=== PATIENT | male | born 1965 | race African-American/Black ===

== ENCOUNTER 2017-10-21 14:17 | Inpatient (IN) | payer OTHER ==
[2017-10-21 19:55] VITALS: BMI 22.9
--- NOTE | 2017-10-21 22:36 | HP ---
Admission ROS S - [facility] Chief Complaint: I WANT TO GO TO REHAB Allergies/Adverse Reactions: Allergies Allergy/AdvReac Type Severity Reaction Status Date / Time Pork/Porcine Containing Allergy Unknown Verified 10/21/17 20:47 Products [Pork/Porcine Product Derivatives] History of Present Illness: 52 YEARS OLD MALE WITH LONG HISTORY OF HEROIN NICOTINE DEPENDENCE HAS HYPERTENSION, HYPERLIPIDEMIA WEIGH TLOSS POSITIVE PPD AND DEPRESSION IS ADMITTED TO REHAB Exam Limitations: No Limitations - Ebola screening Have you traveled outside of the country in the last 21 days: No Have you had contact with anyone from an Ebola affected area: No Have you been sick,other than usual withdrawal symptoms: No Do you have a fever: No - Review of Systems Constitutional: Loss of Appetite, Unintentional Wgt. Loss, Unexplained wgt Loss EENT: reports: No Symptoms Reported Respiratory: reports: SOB with Exertion Cardiac: reports: No Symptoms Reported GI: reports: No Symptoms Reported : reports: No Symptoms Reported Musculoskeletal: reports: No Symptoms Reported Integumentary: reports: No Symptoms Reported Neuro: reports: No Symptoms reported Endocrine: reports: No Symptoms Reported Hematology: reports: Blood Clots Psychiatric: reports: Judgement Intact, Orientated x3, Anxious, Depressed Other Systems: Reviewed and Negative Patient History - Patient Medical History Hx Anemia: No Hx Asthma: No Hx Chronic Obstructive Pulmonary Disease (COPD): No Hx Cancer: No Hx Cardiac Disorders: No Hx Congestive Heart Failure: Yes (PULMONARY EDEMA = LASIX) Hx Hypertension: Yes Hx Hypercholesterolemia: Yes Hx Pacemaker: No HX Cerebrovascular Accident: No Hx Seizures: No Hx Dementia: No Hx Diabetes: No Hx Gastrointestinal Disorders: No Hx Liver Disease: No Hx Genitourinary Disorders: No Hx Sexually Transmitted Disorders: No Hx Renal Disease (ESRD): No ("DOCTOR SAID MY KIDNEY NOT SO GOOD") Hx Thyroid Disease: No Hx Human Immunodeficiency Virus (HIV): No Hx Hepatitis C: No Hx Depression: Yes Hx Suicide Attempt: No Hx Bipolar Disorder: No Hx Schizophrenia: No Other Medical History: LAB PENDING - Patient Surgical History Past Surgical History: Yes Hx Neurologic Surgery: No Hx Cataract Extraction: No Hx Cardiac Surgery: No Hx Lung Surgery: No Hx Breast Surgery: No Hx Breast Biopsy: No Hx Abdominal Surgery: Yes (Rt inguinal hernia repair) Hx Appendectomy: Yes Hx Cholecystectomy: No Hx Genitourinary Surgery: No Hx Orthopedic Surgery: No Anesthesia Reaction: No - PPD History Previous Implant?: Yes Documented Results: Positive w/o proof Implanted On Prior [facility] Admission?: No PPD to be Administered?: No - Smoking Cessation Smoking history: Current every day smoker Have you smoked in the past 12 months: Yes Aproximately how many cigarettes per day: 5 Cigars Per Day: 0 Hx Chewing Tobacco Use: No Initiated information on smoking cessation: Yes 'Breaking Loose' booklet given: 10/21/17 - Substance & Tx. History Hx Alcohol Use: No Hx Substance Use: Yes Substance Use Type: Cocaine, Heroin Hx Substance Use Treatment: Yes (10/21/17 [facility] [place]) - Substances Abused Heroin Route: Inhalation Frequency: Daily Amount used: 10 bags Age of first use: 28 Date of Last Use: 10/14/17 Cocaine Route: Smoking Frequency: Daily Amount used: $50-75 Age of first use: 23 Date of Last Use: 10/14/17 Family Disease History - Family Disease History Family Disease History: Heart Disease: Father (), Sister (), [place] : Mother, Other: Father, Brother (), Sister Admission Physical Exam [facility] - Vital Signs Vital Signs: Vital Signs - 24 hr 10/21/17 19:53 Temperature 97.6 F Pulse Rate 90 Respiratory 18 Rate Blood Pressure 139/90 - Physical General Appearance: Yes: No Apparent Distress, Appropriately Dressed, Thin HEENTM: Yes: Hearing grossly Normal, Normal ENT Inspection, Normocephalic, Normal Voice Respiratory: Yes: Chest Non-Tender, No Respiratory Distress, No Accessory Muscle Use, Rhonchi Neck: Yes: Supple, Trachea in good position Breast: Yes: Breasts Symetrical Cardiology: Yes: Regular Rhythm, S1, S2, Tachycardia Abdominal: Yes: Non Tender, Soft, Increased Bowel Sounds Genitourinary: Yes: Within Normal Limits Back: Yes: Normal Inspection Musculoskeletal: Yes: full range of Motion, Gait Steady Extremities: Yes: Normal Inspection, Normal Range of Motion, Non-Tender Neurological: Yes: Fully Oriented, Alert, Motor Strength 5/5, Normal Response Integumentary: Yes: Dry, Warm Lymphatic: Yes: Within Normal Limits - Diagnostic (1) Opioid dependence with withdrawal Current Visit: Yes Status: Acute (2) Cocaine dependence, uncomplicated Current Visit: Yes Status: Chronic (3) Hypertension Current Visit: Yes Status: Acute Qualifiers: Hypertension type: essential hypertension Qualified Code(s): I10 - Essential (primary) hypertension (4) Nicotine dependence Current Visit: Yes Status: Acute Qualifiers: Nicotine product type: cigarettes Substance use status: in withdrawal Qualified Code(s): F17.213 - Nicotine dependence, cigarettes, with withdrawal (5) Hyperlipidemia Current Visit: Yes Status: Chronic Qualifiers: Hyperlipidemia type: pure hypercholesterolemia Qualified Code(s): E78.00 - Pure hypercholesterolemia, unspecified; E78.0 - Pure hypercholesterolemia (6) Weight loss Current Visit: Yes Status: Acute (7) Positive PPD, treated Current Visit: Yes Status: Resolved (8) Dry skin dermatitis Current Visit: Yes Status: Chronic Cleared for Admission [facility] - Detox or Rehab S Level of Care: Observation Bed Detox Regimen/Protocol: Not Applicable Claeared for Rehab Admission: Yes [facility] Breath Alcohol Content Breath Alcohol Content: 0 Vital Signs - Vital Signs Vital Signs Refused: No Temperature: 97.6 F Temperature Source: Oral Pulse Rate: 90 Respiratory Rate: 18 Blood Pressure: 139/90 BP Location: Left Arm Blood Pressure Position: Sitting - Height Height: 5 ft 10 in - Weight Weight: 160 lb Weight Measurement Method: Standing Scale Body Mass Index (BMI): 22.9 - Bowel Function Bowel Movement: Yes Urine Drug Screen - Control Is Test Valid: Yes - Results Drug Screen Negative: No Urine Drug Screen Results: YARIEL-Cocaine, MTD-Methadone Inpatient Rehab Admission - Initial Determination Are CD services needed?: Yes Free of communicable disease: Yes Not in need of hospitalization: Yes - Rehab Admission Criteria Previous failed treatment: Yes Poor recovery environment: Yes Comorbidities: Yes Lacks judgement: No Patient is meeting Inpatient Rehab admission criteria:: Yes
[2017-10-21] MEDS ORDERED: MAGNESIUM CITRATE 300 ML BOTTLE PO PRN (23:02)
[2017-10-21] MEDS ORDERED: ACETAMINOPHEN 325 MG TABLET (FP) PO PRN (23:02)
[2017-10-21] MEDS ORDERED: MAG HYDROX/AL HYDROX/SIMETH 30 ML UNIT-DOSE CUP PO PRN (23:02)
[2017-10-21] MEDS ORDERED: P-EPHED 60MG/TRIPROLIDI 2.5MG TABLET PO PRN (23:02)
[2017-10-21] MEDS ORDERED: MENTHOL/PHENOL 1 EACH UD MM PRN (23:02)
[2017-10-21] MEDS ORDERED: guaiFENesin/D-METHORPHAN HB 10 ML UNIT-DOSE CUPS PO PRN (23:02)
[2017-10-21] MEDS ORDERED: NICOTINE POLACRILEX 2 MG GUM BC PRN (23:02)
[2017-10-21] MEDS ORDERED: MAGNESIUM HYDROX 2400MG/30ML ORAL SUSPENSION 30 ML CUP PO PRN (23:02)
[2017-10-21] MEDS ORDERED: LOPERAMIDE HCL 2 MG CAPSULE PO PRN (23:02)
[2017-10-21] MEDS ORDERED: METHOCARBAMOL 500 MG TABLET PO PRN (23:18)
[2017-10-22 02:19] LABS: URINE APPEARANCE CLEAR; URINE BILIRUBIN NEGATIVE (NEGATIVE); URINE BLOOD NEGATIVE (NEGATIVE); URINE COLOR LTYELLOW; URINE GLUCOSE (UA) NEGATIVE (NEGATIVE); URINE KETONE NEGATIVE (NEGATIVE); URINE LEUK ESTERASE NEGATIVE (NEGATIVE); URINE NITRITE NEGATIVE (NEGATIVE); URINE UROBILINOGEN NEGATIVE mg/dL (0.2-1.0)
[2017-10-22 02:20] LABS: URINE PROTEIN 2+ (NEGATIVE)
[2017-10-22 02:33] LABS: URINE BACTERIA RARE /hpf (NONE SEEN); URINE MUCUS RARE; URINE RBC 1 /hpf (0-3); URINE WBC 12 /hpf (3-5)
[2017-10-22 10:02] LABS: MCH 28.4 pg (25.7-33.7); MCHC 32.7 g/dl (32.0-35.9); MEAN CELL VOLUME 86.9 fl (80-96); PLATELET COUNT 360 K/MM3 (134-434); RDW 16.2 % (11.9-15.9)
[2017-10-22 10:42] LABS: ALK PHOS 94 U/L (45-117); ANION GAP 15 (8-16); BILIRUBIN,TOTAL 0.6 mg/dL (0.2-1.0); CO2 27 mmol/L (21-32); GLUCOSE,RANDOM 138 mg/dL (74-106); SGOT/AST 14 U/L (15-37); SGPT/ALT 20 U/L (12-78); TOT PROT 9.3 g/dl (6.4-8.2)
[2017-10-22] MEDS: ASPIRIN 81 MG CHEWABLE TABLETS PO SCH (10:46)
[2017-10-22] MEDS: amLODIPine BESYLATE 10 MG TABLET (FP) PO SCH (10:47)
[2017-10-22] MEDS: TICAGRELOR 90 MG TABLET PO SCH ×2 (10:47→22:22)
[2017-10-22] MEDS: NICOTINE 14 MG/24 HOURS TOPICAL PATCH TD SCH (10:47)
[2017-10-22] MEDS: RANOLAZINE E.R. 500 MG TABLET (FP) PO SCH ×2 (10:47→22:16)
[2017-10-22] MEDS: PRENATAL VITAMINS W/ FOLIC ACID TABLET (FP) PO SCH (10:47)
[2017-10-22 11:01] LABS: CREATININE 8.8 mg/dL (0.7-1.3)
[2017-10-22] MEDS ORDERED: CARVEDILOL 6.25 MG TABLET (FP) PO SCH (11:30)
[2017-10-22] MEDS ORDERED: CLOPIDOGREL BISULFATE 75 MG TABLET (FP) PO SCH (11:30)
[2017-10-22] MEDS ORDERED: BUPRENORPHINE/NALOXONE 2 MG/0.5 MG FILM PACKET SL ONE (11:31)
--- NOTE | 2017-10-22 11:43 | PN ---
S Progress Note (SOAP) Subjective: LABWORK SHOW ELEVATED BUN AND CREATININE, PATIENT IS AWARE, HAD ISSUES AT [facility] AND APPOINTMENTS MADE FOR FOLLOW UP IN november. DOESNOT WANT TO GO TO HOSPTIAL TODAY, REPROTS PROTRACTED OPIOID WITHDRAWAL SX Objective: 10/22/17 11:40 Vital Signs - 24 hr 10/21/17 10/21/17 10/22/17 19:53 23:27 03:30 Temperature 97.6 F 97.6 F Pulse Rate 90 90 Respiratory 18 18 18 Rate Blood Pressure 139/90 139/90 10/22/17 10/22/17 06:28 11:13 Temperature 98.3 F Pulse Rate 91 H 90 Respiratory 16 18 Rate Blood Pressure 143/95 140/97 HYPERTENSION Laboratory Tests 10/21/17 10/22/17 10/22/17 23:40 08:15 08:15 WBC 9.0 D RBC 4.26 Hgb 12.1 Hct 37.0 MCV 86.9 MCH 28.4 MCHC 32.7 RDW 16.2 H Plt Count 360 D MPV 8.0 D Sodium 131 L Potassium 3.9 Chloride 89 L D Carbon Dioxide 27 Anion Gap 15 BUN 143 H* D Creatinine 8.8 H* D Creat Clearance w eGFR 6.33 Random Glucose 138 H D Calcium 9.0 Total Bilirubin 0.6 D AST 14 L ALT 20 Alkaline Phosphatase 94 D Total Protein 9.3 H D Albumin 3.0 L Urine Color Ltyellow Urine Appearance Clear Urine pH 8.0 Ur Specific [place] 1.012 Urine Protein 2+ H Urine Glucose (UA) Negative Urine Ketones Negative Urine Blood Negative Urine Nitrite Negative Urine Bilirubin Negative Urine Urobilinogen Negative Urine WBC (Auto) 12 Urine RBC (Auto) 1 Ur Epithelial Cells Rare Urine Bacteria Rare Urine Mucus Rare Assessment: 10/22/17 11:41 ANUELJANET IS AWARE OF SERIOUS NATURE OF PROBLEM, AND WILL ATTEND CLINIC APPOINTMENTS SCHEULED IN NOVEMBER AFTER REHAB, PROTRACTED OPIOID WITHDRAWAL SX, HYPERTENSION, REPEAT LABS, CONTROL BP, START SUBOXONE. IF NO IMPROVEMENT WILL SEND TO [facility] [[email or web address]] FOR EVALUATION. pATEINT VERBALIZES AGREEMENT. NEEDS cxr FOR H/O ppd+ TODAQY. 10/22/17 11:42
[2017-10-22 12:05] LABS: URINE LEUK ESTERASE Negative (NEGATIVE)
--- NOTE | 2017-10-22 12:45 | EKG ---
Test Reason : Blood Pressure : / mmHG Vent. Rate : 088 BPM Atrial Rate : 088 BPM P-R Int : 164 ms QRS Dur : 098 ms QT Int : 370 ms P-R-T Axes : 068 066 079 degrees QTc Int : 447 ms NORMAL SINUS RHYTHM BIATRIAL ENLARGEMENT LEFT VENTRICULAR HYPERTROPHY POSSIBLE INFERIOR INFARCT , AGE UNDETERMINED ABNORMAL ECG NO PREVIOUS ECGS AVAILABLE Confirmed by BRIAN DAI MD ([id number]) on 10/22/2017 12:45:08 PM Referred By: Confirmed By:BRIAN DAI MD
[2017-10-22] MEDS: METOPROLOL TARTRATE 50 MG TABLET (FP) PO SCH (14:02)
[2017-10-22] MEDS: VALSARTAN 80 MG TABLET (UD) PO SCH ×2 (14:02→22:17)
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
--- NOTE | 2017-10-22 16:34 | EKG ---
Test Reason : Blood Pressure : / mmHG Vent. Rate : 084 BPM Atrial Rate : 084 BPM P-R Int : 166 ms QRS Dur : 096 ms QT Int : 376 ms P-R-T Axes : 073 075 084 degrees QTc Int : 444 ms NORMAL SINUS RHYTHM BIATRIAL ENLARGEMENT LEFT VENTRICULAR HYPERTROPHY INFERIOR INFARCT (CITED ON OR BEFORE 22-OCT-2017) ABNORMAL ECG WHEN COMPARED WITH ECG OF 22-OCT-2017 00:43, NO SIGNIFICANT CHANGE WAS FOUND Confirmed by BRIAN DAI MD ([id number]) on 10/22/2017 4:34:05 PM Referred By: Confirmed By:BRIAN DAI MD
[2017-10-22] MEDS ORDERED: LORATADINE 10 MG TABLET PO SCH (22:00)
[2017-10-22] MEDS: ATORVASTATIN CA 40 MG TABLET (FP) PO SCH (22:16)
[2017-10-22] MEDS: THIAMINE HCL 100 MG TABLET (FP) PO SCH (22:17)
[2017-10-22] MEDS: DOXAZOSIN MESYLATE 2 MG TABLET (FP) PO SCH (22:18)
[2017-10-22] MEDS: MINERAL OIL/PETROLAT/WATER TOPICAL CREAM 113 GM JAR TP SCH (22:23)
[2017-10-23] MEDS ORDERED: MAGNESIUM HYDROX 2400MG/30ML ORAL SUSPENSION 30 ML CUP PO PRN (02:37)
[2017-10-23 10:17] LABS: BASO % 0.4 % (0-2.0); EOS % 0.2 % (0-4.5); LYMPH # 1.2 (8-40); MCH 28.1 pg (25.7-33.7); MCHC 32.6 g/dl (32.0-35.9); MEAN CELL VOLUME 86.4 fl (80-96); MONO # 1.2 # (3.8-10.2); NEUT # 9.6 # (42.8-82.8); NEUT % 79.5 % (42.8-82.8); PLATELET COUNT 374 K/MM3 (134-434); RDW 15.8 % (11.9-15.9); WHITE BLOOD COUNT 12.1 K/mm3 (4.0-10.0)
[2017-10-23 10:18] LABS: ALBUMIN 2.9 g/dl (3.4-5.0); ALK PHOS 82 U/L (45-117); ANION GAP 12 (8-16); BILIRUBIN,TOTAL 0.5 mg/dL (0.2-1.0); CALCIUM 9.2 mg/dL (8.5-10.1); CO2 28 mmol/L (21-32); GLUCOSE,RANDOM 98 mg/dL (74-106); SGOT/AST 13 U/L (15-37); SGPT/ALT 16 U/L (12-78); TOT PROT 8.5 g/dl (6.4-8.2)
[2017-10-23 10:33] LABS: CREATININE 8.6 mg/dL (0.7-1.3)
[2017-10-23] MEDS: METOPROLOL TARTRATE 50 MG TABLET (FP) PO SCH (10:45)
[2017-10-23] MEDS: ASPIRIN 81 MG CHEWABLE TABLETS PO SCH (10:45)
[2017-10-23] MEDS: RANOLAZINE E.R. 500 MG TABLET (FP) PO SCH ×2 (10:46→22:03)
[2017-10-23] MEDS: amLODIPine BESYLATE 10 MG TABLET (FP) PO SCH (10:47)
[2017-10-23] MEDS: NICOTINE 14 MG/24 HOURS TOPICAL PATCH TD SCH (10:47)
[2017-10-23] MEDS: TICAGRELOR 90 MG TABLET PO SCH ×2 (10:48→22:03)
[2017-10-23] MEDS: VALSARTAN 80 MG TABLET (UD) PO SCH (10:48)
[2017-10-23] MEDS: PRENATAL VITAMINS W/ FOLIC ACID TABLET (FP) PO SCH (10:49)
[2017-10-23] MEDS: BUPRENORPHINE/NALOXONE 2 MG/0.5 MG FILM PACKET SL SCH (10:50)
--- NOTE | 2017-10-23 12:25 | PN ---
Progress Note (short form) - Note Progress Note: repeat lab work with elevated BUN/Cr. pt declined suboxone today, says he doesn't need it. Med rec needs to be updated. pt is on beta-ale and uses cocaine. currently has good urine output, denies fatigue, mental fog, le edema, chest pain, sob, cough, cva tenderness, chest pain. Plan: he does not want to be transferred to [facility] for further evaluation, will f/u as outpatient at previously arranged appointments by [facility] in November. discussed risks of combining beta blockers and cocaine reveiwed worsening kidney function, answered patient's question to his satisfaction. states understanding the risks (, renal failure, [place], stroke, multi-organ failure, AMS) of deferring further evaluation for kidney function now. repeat BMP, Mag, Phos on Saturday 10/27 to monitor electrolytes and renal function discontinued ARB (diovan 160mg po daily) due to ANUEL, monitor BP, goal HR <90. continue norvasc, lopressor, cardura, hold if BP <90/60 continue suboxone order even though patient may decline to use it discussed with Dr. Coe Active Medications Acetaminophen (Tylenol -) 650 mg PO Q4H PRN PRN Reason: PAIN Amlodipine Besylate (Norvasc -) 10 mg PO DAILY [facility] Last Admin: 10/23/17 10:47 Dose: 10 mg Aspirin (Asa -) 81 mg PO DAILY [facility] Last Admin: 10/23/17 10:45 Dose: 81 mg Atorvastatin Calcium (Lipitor -) 40 mg PO HS [facility] Last Admin: 10/22/17 22:16 Dose: 40 mg Buprenorphine/Naloxone (Suboxone 2mg/0.5mg Sl Film -) 2 each SL DAILY [facility] Stop: 10/29/17 09:59 Last Admin: 10/23/17 10:50 Dose: Not Given Docusate Sodium (Colace -) 300 mg PO HS [facility]BI[facility] Doxazosin Mesylate (Cardura -) 2 mg PO HS [facility] Last Admin: 10/22/17 22:18 Dose: Not Given Guaifenesin (Robitussin Dm -) 10 ml PO Q6H PRN PRN Reason: COUGH Last Admin: 10/22/17 00:38 Dose: 10 ml Loperamide HCl (Imodium -) 4 mg PO Q6H PRN PRN Reason: DIARRHEA Metoprolol Tartrate (Lopressor -) 100 mg PO DAILY [facility] Last Admin: 10/23/17 10:45 Dose: 100 mg Multi-Ingredient Lotion (Eucerin (Small Jar) -) 1 applic TP HS [facility] Last Admin: 10/22/17 22:23 Dose: 1 applic Nicotine (Nicoderm Patch -) 14 mg TD DAILY [facility] Last Admin: 10/23/17 10:47 Dose: Not Given Nicotine Polacrilex (Nicorette Gum -) 2 mg BC Q2H PRN PRN Reason: NICOTINE REPLACEMENT RX Multivit/Folic Acid/Iron ( Vitamins (Sjr) -) 1 tab PO DAILY [facility] Last Admin: 10/23/17 10:49 Dose: 1 tab Ranolazine (Ranexa -) 500 mg PO BID [facility] Last Admin: 10/23/17 10:46 Dose: 500 mg Thiamine HCl (Vitamin B1 -) 100 mg PO HS [facility] Last Admin: 10/22/17 22:17 Dose: 100 mg Ticagrelor (Brilinta -) 90 mg PO BID [facility] Last Admin: 10/23/17 10:48 Dose: 90 mg
[2017-10-23] MEDS: DOCUSATE SODIUM 100 MG CAPSULE (FP) PO SCH (22:03)
[2017-10-23] MEDS: DOXAZOSIN MESYLATE 2 MG TABLET (FP) PO SCH (22:03)
[2017-10-23] MEDS: THIAMINE HCL 100 MG TABLET (FP) PO SCH (22:03)
[2017-10-23] MEDS: ATORVASTATIN CA 40 MG TABLET (FP) PO SCH (22:04)
[2017-10-23] MEDS: MINERAL OIL/PETROLAT/WATER TOPICAL CREAM 113 GM JAR TP SCH (22:04)
[2017-10-24] MEDS: TICAGRELOR 90 MG TABLET PO SCH ×2 (10:51→21:41)
[2017-10-24] MEDS: BUPRENORPHINE/NALOXONE 2 MG/0.5 MG FILM PACKET SL SCH (10:52)
[2017-10-24] MEDS: PRENATAL VITAMINS W/ FOLIC ACID TABLET (FP) PO SCH (10:52)
[2017-10-24] MEDS: NICOTINE 14 MG/24 HOURS TOPICAL PATCH TD SCH (10:52)
[2017-10-24] MEDS: ASPIRIN 81 MG CHEWABLE TABLETS PO SCH (10:52)
[2017-10-24] MEDS: RANOLAZINE E.R. 500 MG TABLET (FP) PO SCH ×2 (10:52→21:40)
[2017-10-24] MEDS: METOPROLOL TARTRATE 50 MG TABLET (FP) PO SCH (10:53)
[2017-10-24] MEDS: amLODIPine BESYLATE 10 MG TABLET (FP) PO SCH (10:54)
[2017-10-24] MEDS: ATORVASTATIN CA 40 MG TABLET (FP) PO SCH (21:40)
[2017-10-24] MEDS: DOCUSATE SODIUM 100 MG CAPSULE (FP) PO SCH (21:40)
[2017-10-24] MEDS: THIAMINE HCL 100 MG TABLET (FP) PO SCH (21:40)
[2017-10-24] MEDS: DOXAZOSIN MESYLATE 2 MG TABLET (FP) PO SCH (21:42)
[2017-10-24] MEDS: MINERAL OIL/PETROLAT/WATER TOPICAL CREAM 113 GM JAR TP SCH (21:42)
--- NOTE | 2017-10-25 09:39 | PN ---
[facility] Progress Note Note: Pt. with CRF of undetermined etiology at this time with CHF. HTN is the probable cause of CRF. Vital Signs - 8 hr 10/25/17 10/25/17 10/25/17 03:30 07:28 09:16 Temperature 98.1 F Pulse Rate 86 46 L Respiratory 16 16 18 Rate Blood Pressure 115/86 130/88 Laboratory Tests 10/21/17 10/22/17 10/22/17 23:40 08:15 08:15 WBC 9.0 D RBC 4.26 Hgb 12.1 Hct 37.0 MCV 86.9 MCH 28.4 MCHC 32.7 RDW 16.2 H Plt Count 360 D MPV 8.0 D Absolute Neuts (auto) Absolute Lymphs (auto) Absolute Monos (auto) Absolute Eos (auto) Absolute Basos (auto) Neutrophils % Lymphocytes % Monocytes % Eosinophils % Basophils % Sodium 131 L Potassium 3.9 Chloride 89 L D Carbon Dioxide 27 Anion Gap 15 BUN 143 H* D Creatinine 8.8 H* D Creat Clearance w eGFR 6.33 Random Glucose 138 H D Calcium 9.0 Total Bilirubin 0.6 D AST 14 L ALT 20 Alkaline Phosphatase 94 D Total Protein 9.3 H D Albumin 3.0 L Urine Color Ltyellow Urine Appearance Clear Urine pH 8.0 Ur Specific [place] 1.012 Urine Protein 2+ H Urine Glucose (UA) Negative Urine Ketones Negative Urine Blood Negative Urine Nitrite Negative Urine Bilirubin Negative Urine Urobilinogen Negative Ur Leukocyte Esterase Negative Urine WBC (Auto) 12 Urine RBC (Auto) 1 Ur Epithelial Cells Rare Urine Bacteria Rare Urine Mucus Rare RPR Titer 10/22/17 10/23/17 10/23/17 08:15 08:30 08:30 WBC 12.1 H D RBC 4.14 Hgb 11.6 L Hct 35.7 MCV 86.4 MCH 28.1 MCHC 32.6 RDW 15.8 Plt Count 374 MPV 8.0 Absolute Neuts (auto) 9.6 L Absolute Lymphs (auto) 1.2 L Absolute Monos (auto) 1.2 L Absolute Eos (auto) 0.0 Absolute Basos (auto) 0.0 L Neutrophils % 79.5 Lymphocytes % 9.9 Monocytes % 10.0 Eosinophils % 0.2 Basophils % 0.4 Sodium 130 L Potassium 4.0 Chloride 90 L Carbon Dioxide 28 Anion Gap 12 BUN 154 H* Creatinine 8.6 H* Creat Clearance w eGFR 6.50 Random Glucose 98 D Calcium 9.2 Total Bilirubin 0.5 AST 13 L ALT 16 Alkaline Phosphatase 82 Total Protein 8.5 H Albumin 2.9 L Urine Color Urine Appearance Urine pH Ur Specific [place] Urine Protein Urine Glucose (UA) Urine Ketones Urine Blood Urine Nitrite Urine Bilirubin Urine Urobilinogen Ur Leukocyte Esterase Urine WBC (Auto) Urine RBC (Auto) Ur Epithelial Cells Urine Bacteria Urine Mucus RPR Titer Nonreactive labs noted. P : Add loop diuretic change Metoprolol to 50mg BID Increase PO fluid repeatbmp in AM
[2017-10-25] MEDS: RANOLAZINE E.R. 500 MG TABLET (FP) PO SCH ×2 (10:24→21:44)
[2017-10-25] MEDS: PRENATAL VITAMINS W/ FOLIC ACID TABLET (FP) PO SCH (10:24)
[2017-10-25] MEDS: TICAGRELOR 90 MG TABLET PO SCH ×2 (10:24→21:44)
[2017-10-25] MEDS: amLODIPine BESYLATE 10 MG TABLET (FP) PO SCH (10:24)
[2017-10-25] MEDS: ASPIRIN 81 MG CHEWABLE TABLETS PO SCH (10:24)
[2017-10-25] MEDS: NICOTINE 14 MG/24 HOURS TOPICAL PATCH TD SCH (10:27)
[2017-10-25] MEDS: BUPRENORPHINE/NALOXONE 2 MG/0.5 MG FILM PACKET SL SCH (10:27)
[2017-10-25] MEDS: METOPROLOL TARTRATE 50 MG TABLET (FP) PO SCH ×2 (10:47→21:44)
[2017-10-25] MEDS: FUROSEMIDE 40 MG TABLET (FP) PO SCH (10:47)
[2017-10-25] MEDS: ATORVASTATIN CA 40 MG TABLET (FP) PO SCH (21:44)
[2017-10-25] MEDS: DOXAZOSIN MESYLATE 2 MG TABLET (FP) PO SCH (21:44)
[2017-10-25] MEDS: THIAMINE HCL 100 MG TABLET (FP) PO SCH (21:44)
[2017-10-25] MEDS: MINERAL OIL/PETROLAT/WATER TOPICAL CREAM 113 GM JAR TP SCH (21:44)
[2017-10-25] MEDS: DOCUSATE SODIUM 100 MG CAPSULE (FP) PO SCH (21:44)
[2017-10-26] MEDS: RANOLAZINE E.R. 500 MG TABLET (FP) PO SCH ×2 (10:48→21:56)
[2017-10-26] MEDS: PRENATAL VITAMINS W/ FOLIC ACID TABLET (FP) PO SCH (10:48)
[2017-10-26] MEDS: ASPIRIN 81 MG CHEWABLE TABLETS PO SCH (10:48)
[2017-10-26] MEDS: TICAGRELOR 90 MG TABLET PO SCH ×2 (10:49→21:56)
[2017-10-26] MEDS: NICOTINE 14 MG/24 HOURS TOPICAL PATCH TD SCH (10:50)
[2017-10-26] MEDS: METOPROLOL TARTRATE 50 MG TABLET (FP) PO SCH (10:53)
[2017-10-26] MEDS: FUROSEMIDE 40 MG TABLET (FP) PO SCH (10:54)
[2017-10-26] MEDS: amLODIPine BESYLATE 10 MG TABLET (FP) PO SCH (10:54)
[2017-10-26] MEDS: BUPRENORPHINE/NALOXONE 2 MG/0.5 MG FILM PACKET SL SCH (10:54)
[2017-10-26 11:37] LABS: ANION GAP 12 (8-16); CALCIUM 8.8 mg/dL (8.5-10.1); CO2 30 mmol/L (21-32); GLUCOSE,RANDOM 100 mg/dL (74-106)
[2017-10-26 12:40] LABS: CREATININE 8.6 mg/dL (0.7-1.3)
[2017-10-26] MEDS: FUROSEMIDE 20 MG TABLET (FP) PO SCH (14:56)
[2017-10-26] MEDS: THIAMINE HCL 100 MG TABLET (FP) PO SCH (21:56)
[2017-10-26] MEDS: DOCUSATE SODIUM 100 MG CAPSULE (FP) PO SCH (21:56)
[2017-10-26] MEDS: ATORVASTATIN CA 40 MG TABLET (FP) PO SCH (21:56)
[2017-10-26] MEDS: DOXAZOSIN MESYLATE 2 MG TABLET (FP) PO SCH (21:57)
[2017-10-26] MEDS: MINERAL OIL/PETROLAT/WATER TOPICAL CREAM 113 GM JAR TP SCH (21:58)
[2017-10-27] MEDS: FUROSEMIDE 20 MG TABLET (FP) PO SCH (06:39)
[2017-10-27 10:14] LABS: ANION GAP 13 (8-16); CALCIUM 9.1 mg/dL (8.5-10.1); CO2 28 mmol/L (21-32); GLUCOSE,RANDOM 103 mg/dL (74-106); PHOSPHOROUS 6.3 mg/dL (2.5-4.9)
[2017-10-27] MEDS: RANOLAZINE E.R. 500 MG TABLET (FP) PO SCH ×2 (10:35→22:06)
[2017-10-27] MEDS: amLODIPine BESYLATE 10 MG TABLET (FP) PO SCH (10:35)
[2017-10-27] MEDS: NICOTINE 14 MG/24 HOURS TOPICAL PATCH TD SCH (10:35)
[2017-10-27] MEDS: ASPIRIN 81 MG CHEWABLE TABLETS PO SCH (10:35)
[2017-10-27] MEDS: PRENATAL VITAMINS W/ FOLIC ACID TABLET (FP) PO SCH (10:35)
[2017-10-27] MEDS: TICAGRELOR 90 MG TABLET PO SCH ×2 (10:35→22:06)
[2017-10-27] MEDS: METOPROLOL TARTRATE 50 MG TABLET (FP) PO SCH (10:36)
--- NOTE | 2017-10-27 11:31 | PN ---
Progress Note (short form) - Note Progress Note: repeat BMP with Cr 139/8.0 BP low this morning, pt was on lopressor 50mg 1 tablet daily, lasix 20mg po twice daily, norvasc 10mg po daily, felt light headed/dizzy during the episode also c/o "flashes" intermittently in eyes a/w lightheadedness and numbess in finger tips for past few days weight on standing scale with clothes 152lbs c/o constipation, requesting enema chart reviewed: echo 10/2017 at [facility]: LVEF 40-50% G3-4 diastolic dysfunction, insignificant , moderately dialated left atrium, pulmonary HTN 40-50% mmhg Plan: renal function currently stable, impression from 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 symptoms likely caused by low BP, will control with lopressor and norvasc ordered glycerin suppositories for continued constipation, enemas not available at [facility] Active Medications Acetaminophen (Tylenol -) 650 mg PO Q4H PRN PRN Reason: PAIN Amlodipine Besylate (Norvasc -) 10 mg PO DAILY [facility] Last Admin: 10/27/17 10:35 Dose: 10 mg Aspirin (Asa -) 81 mg PO DAILY [facility] Last Admin: 10/27/17 10:35 Dose: 81 mg Atorvastatin Calcium (Lipitor -) 40 mg PO HS [facility] Last Admin: 10/26/17 21:56 Dose: 40 mg Docusate Sodium (Colace -) 300 mg PO HS [facility] Last Admin: 10/26/17 21:56 Dose: Not Given Doxazosin Mesylate (Cardura -) 2 mg PO HS [facility] Last Admin: 10/26/17 21:57 Dose: 2 mg Furosemide (Lasix -) 20 mg PO BID@0600,1400 [facility] Last Admin: 10/27/17 06:39 Dose: Not Given Guaifenesin (Robitussin Dm -) 10 ml PO Q6H PRN PRN Reason: COUGH Last Admin: 10/22/17 00:38 Dose: 10 ml Loperamide HCl (Imodium -) 4 mg PO Q6H PRN PRN Reason: DIARRHEA Metoprolol Tartrate (Lopressor -) 50 mg PO DAILY [facility] Last Admin: 10/27/17 10:36 Dose: 50 mg Multi-Ingredient Lotion (Eucerin (Small Jar) -) 1 applic TP [facility] Last Admin: 10/26/17 21:58 Dose: Not Given Nicotine (Nicoderm Patch -) 14 mg TD DAILY [facility] Last Admin: 10/27/17 10:35 Dose: Not Given Nicotine Polacrilex (Nicorette Gum -) 2 mg BC Q2H PRN PRN Reason: NICOTINE REPLACEMENT RX Multivit/Folic Acid/Iron ( Vitamins (Sjr) -) 1 tab PO DAILY [facility] Last Admin: 10/27/17 10:35 Dose: 1 tab Ranolazine (Ranexa -) 500 mg PO BID [facility] Last Admin: 10/27/17 10:35 Dose: 500 mg Thiamine HCl (Vitamin B1 -) 100 mg PO [facility] Last Admin: 10/26/17 21:56 Dose: 100 mg Ticagrelor (Brilinta -) 90 mg PO BID [facility] Last Admin: 10/27/17 10:35 Dose: 90 mg
[2017-10-27] MEDS ORDERED: GLYCERIN 1 RECTAL SUPPOSITORY, ADULT RC ONE (12:20)
[2017-10-27] MEDS: THIAMINE HCL 100 MG TABLET (FP) PO SCH (22:05)
[2017-10-27] MEDS: DOXAZOSIN MESYLATE 2 MG TABLET (FP) PO SCH (22:06)
[2017-10-27] MEDS: ATORVASTATIN CA 40 MG TABLET (FP) PO SCH (22:07)
[2017-10-27] MEDS: MINERAL OIL/PETROLAT/WATER TOPICAL CREAM 113 GM JAR TP SCH (22:07)
[2017-10-27] MEDS: DOCUSATE SODIUM 100 MG CAPSULE (FP) PO SCH (22:07)
[2017-10-28] MEDS ORDERED: FUROSEMIDE 20 MG TABLET (FP) PO SCH (10:00)
[2017-10-28] MEDS: TICAGRELOR 90 MG TABLET PO SCH ×2 (10:42→21:45)
[2017-10-28] MEDS: amLODIPine BESYLATE 10 MG TABLET (FP) PO SCH ×2 (10:42→13:00)
[2017-10-28] MEDS: ASPIRIN 81 MG CHEWABLE TABLETS PO SCH (10:42)
[2017-10-28] MEDS: METOPROLOL TARTRATE 50 MG TABLET (FP) PO SCH (10:42)
[2017-10-28] MEDS: RANOLAZINE E.R. 500 MG TABLET (FP) PO SCH ×2 (10:42→21:45)
[2017-10-28] MEDS: PRENATAL VITAMINS W/ FOLIC ACID TABLET (FP) PO SCH (10:42)
[2017-10-28] MEDS: NICOTINE 14 MG/24 HOURS TOPICAL PATCH TD SCH (10:42)
[2017-10-28] MEDS: DOXAZOSIN MESYLATE 2 MG TABLET (FP) PO SCH (21:44)
[2017-10-28] MEDS: THIAMINE HCL 100 MG TABLET (FP) PO SCH (21:44)
[2017-10-28] MEDS: DOCUSATE SODIUM 100 MG CAPSULE (FP) PO SCH (21:45)
[2017-10-28] MEDS: ATORVASTATIN CA 40 MG TABLET (FP) PO SCH (21:45)
[2017-10-28] MEDS: MINERAL OIL/PETROLAT/WATER TOPICAL CREAM 113 GM JAR TP SCH (21:45)
--- NOTE | 2017-10-29 09:48 | PN ---
[facility] Progress Note (SOAP) Subjective: c/o constipation and rectal bleeding since this morning, brought in toilet tissue to show me. BRB upon wiping and while straining. has been having loose stools but feels that there is a "hard part" of the stool that is "stuck" which the watery stool is bypassing. a/w generalized weakness and LLQ abdominal pain, and poor appetite for one day. denies chest pain, dizziness, palpitations, cough, fever, lightheadedness. Objective: 10/29/17 09:47 Last Vital Signs Temp Pulse Resp BP Pulse Ox 98.5 F 103 H 16 112/77 10/29/17 07:05 10/29/17 07:05 10/29/17 07:05 10/29/17 07:05 Laboratory Tests 10/21/17 10/22/17 10/22/17 23:40 08:15 08:15 WBC 9.0 D RBC 4.26 Hgb 12.1 Hct 37.0 MCV 86.9 MCH 28.4 MCHC 32.7 RDW 16.2 H Plt Count 360 D MPV 8.0 D Absolute Neuts (auto) Absolute Lymphs (auto) Absolute Monos (auto) Absolute Eos (auto) Absolute Basos (auto) Neutrophils % Lymphocytes % Monocytes % Eosinophils % Basophils % Sodium 131 L Potassium 3.9 Chloride 89 L D Carbon Dioxide 27 Anion Gap 15 BUN 143 H* D Creatinine 8.8 H* D Creat Clearance w eGFR 6.33 Random Glucose 138 H D Calcium 9.0 Phosphorus Magnesium Total Bilirubin 0.6 D AST 14 L ALT 20 Alkaline Phosphatase 94 D Total Protein 9.3 H D Albumin 3.0 L Urine Color Ltyellow Urine Appearance Clear Urine pH 8.0 Ur Specific Archer 1.012 Urine Protein 2+ H Urine Glucose (UA) Negative Urine Ketones Negative Urine Blood Negative Urine Nitrite Negative Urine Bilirubin Negative Urine Urobilinogen Negative Ur Leukocyte Esterase Negative Urine WBC (Auto) 12 Urine RBC (Auto) 1 Ur Epithelial Cells Rare Urine Bacteria Rare Urine Mucus Rare RPR Titer 10/22/17 10/23/17 10/23/17 08:15 08:30 08:30 WBC 12.1 H D RBC 4.14 Hgb 11.6 L Hct 35.7 MCV 86.4 MCH 28.1 MCHC 32.6 RDW 15.8 Plt Count 374 MPV 8.0 Absolute Neuts (auto) 9.6 L Absolute Lymphs (auto) 1.2 L Absolute Monos (auto) 1.2 L Absolute Eos (auto) 0.0 Absolute Basos (auto) 0.0 L Neutrophils % 79.5 Lymphocytes % 9.9 Monocytes % 10.0 Eosinophils % 0.2 Basophils % 0.4 Sodium 130 L Potassium 4.0 Chloride 90 L Carbon Dioxide 28 Anion Gap 12 BUN 154 H* Creatinine 8.6 H* Creat Clearance w eGFR 6.50 Random Glucose 98 D Calcium 9.2 Phosphorus Magnesium Total Bilirubin 0.5 AST 13 L ALT 16 Alkaline Phosphatase 82 Total Protein 8.5 H Albumin 2.9 L Urine Color Urine Appearance Urine pH Ur Specific Archer Urine Protein Urine Glucose (UA) Urine Ketones Urine Blood Urine Nitrite Urine Bilirubin Urine Urobilinogen Ur Leukocyte Esterase Urine WBC (Auto) Urine RBC (Auto) Ur Epithelial Cells Urine Bacteria Urine Mucus RPR Titer Nonreactive 10/26/17 10/27/17 07:45 06:00 WBC RBC Hgb Hct MCV MCH MCHC RDW Plt Count MPV Absolute Neuts (auto) Absolute Lymphs (auto) Absolute Monos (auto) Absolute Eos (auto) Absolute Basos (auto) Neutrophils % Lymphocytes % Monocytes % Eosinophils % Basophils % Sodium 131 L 132 L Potassium 3.5 3.4 L Chloride 89 L 91 L Carbon Dioxide 30 28 Anion Gap 12 13 BUN 149 H* 138 H* Creatinine 8.6 H* 8.0 H* Creat Clearance w eGFR Random Glucose 100 103 Calcium 8.8 9.1 Phosphorus 6.3 H Magnesium 3.0 H Total Bilirubin AST ALT Alkaline Phosphatase Total Protein Albumin Urine Color Urine Appearance Urine pH Ur Specific Archer Urine Protein Urine Glucose (UA) Urine Ketones Urine Blood Urine Nitrite Urine Bilirubin Urine Urobilinogen Ur Leukocyte Esterase Urine WBC (Auto) Urine RBC (Auto) Ur Epithelial Cells Urine Bacteria Urine Mucus RPR Titer Assessment: 10/29/17 09:48 52 yr old man with HTN, HLD, renal insufficiency likely 2/2 heroin use, admitted for rehabilitation from heroin and cocaine use now with rectal bleeding and constipation. Plan: Transfer to [facility] ED for further evaluation, may require imaging(xray vs noncontrast CT scan) to evaluate extent of constipation, differentials include obstruction, diverticulitis, infection, hemorrhoids. Discussed with Dr. Tijerina for transfer to ED. Patient agreed to plan for transfer and further evaluation. Discussed with nursing to send patient as soon as possible. Hold aspirin 81mg and brillinta due to bleeding, may need to be held upon transfer back to rehab pending ED's evaluation for cause of bleeding
[2017-10-29 10:39] VITALS: BP 130/84; PULSE 85; TEMP 97.9
[2017-10-29] MEDS: PRENATAL VITAMINS W/ FOLIC ACID TABLET (FP) PO SCH (10:52)
[2017-10-29] MEDS: RANOLAZINE E.R. 500 MG TABLET (FP) PO SCH ×2 (10:52→23:02)
[2017-10-29] MEDS: METOPROLOL TARTRATE 50 MG TABLET (FP) PO SCH (10:52)
[2017-10-29] MEDS: ASPIRIN 81 MG CHEWABLE TABLETS PO SCH (10:52)
[2017-10-29] MEDS: amLODIPine BESYLATE 10 MG TABLET (FP) PO SCH (10:52)
[2017-10-29] MEDS: TICAGRELOR 90 MG TABLET PO SCH (10:53)
[2017-10-29] MEDS: NICOTINE 14 MG/24 HOURS TOPICAL PATCH TD SCH (10:55)
--- NOTE | 2017-10-29 21:58 | HP ---
CHIEF COMPLAINT: Constipation, rectal bleeding PCP: None HISTORY OF PRESENT ILLNESS: 52 yo man w/ pmh of PSA, HTN, CHF (diastolic), ESRD, admitted for rehab on 10/21 , now presenting with intermittent small volume rectal bleeding during defecation for past 5 days in setting of constipation. Pt states he has been constipated since 5 days ago and began noting "one teaspoon" of blood during straining. Pt endorses vigorous straining against a "hard mass" with accompanying small amounts of diarrhea. Rectal bleeds only noted during BMs, however has been consistent for past few days and today pt noted "clots" when attempting to defecate. Pt received one enema at rehab center w/ no resolution of constipation. Has been taking imodium for diarrhea from opiate withdrawal. He endorses fatigue, mild intermittent abdominal pain and discomfort. He denies vision changes, CP, cough, SOB, N/V, decreased appetite, dysuria, hematuria, hematemesis, easy bruising. He has never had a GI bleed before. No hx of GI conditions. Patient is currently on ASA and ticagrelor. ER course was notable for: (1)No labs collected in ED (2)Stable vitals (3) Recent Travel: None PAST MEDICAL HISTORY: ESRD HTN PSA IVDU HLD CHF +PPD PAST SURGICAL HISTORY: R inguinal hernia repair Appendectomy Social History: [place]/day, current smoker Alcohol: Denies Drugs: Heroin 1bag/day, 20-30 yrs; cocaine Family History: Mother w/ HTN, uterine Ca Father of [place] Allergies Pork/Porcine Containing Products [Pork/Porcine Product Derivatives] Allergy ( Unknown, Verified 10/29/17 14:07) NO PORK HOME MEDICATIONS: Home Medications Medication Instructions Recorded Metoprolol Tartrate [Lopressor -] 100 mg PO DAILY #0 tablet 11/27/11 Aspirin [ASA -] 81 mg PO DAILY 10/21/17 Atorvastatin Ca [Lipitor] 80 mg PO HS 10/21/17 Carvedilol [Coreg -] 6.25 mg PO DAILY 10/21/17 Clopidogrel Bisulfate [Plavix -] 75 mg PO DAILY 10/21/17 Doxazosin Mesylate [Cardura -] 2 mg PO HS 10/21/17 Furosemide [Lasix -] 40 mg PO DAILY 10/21/17 Ranolazine [Ranexa] 500 mg PO BID 10/21/17 Ticagrelor [Brilinta -] 90 mg PO BID 10/21/17 REVIEW OF SYSTEMS CONSTITUTIONAL: generalized weakness, malaise, Absent: fever, chills, diaphoresis, loss of appetite, weight change HEENT: Absent: rhinorrhea, nasal congestion, throat pain, throat swelling, difficulty swallowing, mouth swelling, ear pain, eye pain, visual changes CARDIOVASCULAR: Absent: chest pain, syncope, palpitations, irregular heart rate, lightheadedness , peripheral edema RESPIRATORY: Absent: cough, shortness of breath, dyspnea with exertion, orthopnea, wheezing, stridor, hemoptysis GASTROINTESTINAL: abdominal pain, hematochezia, diarrhea, constipation, melena , Absent: abdominal distension, nausea, vomiting, GENITOURINARY: Absent: dysuria, frequency, urgency, hesitancy, hematuria, flank pain, genital pain MUSCULOSKELETAL: Absent: myalgia, arthralgia, joint swelling, back pain, neck pain SKIN: Absent: rash, itching, pallor HEMATOLOGIC/IMMUNOLOGIC: Absent: easy bleeding, easy bruising, lymphadenopathy, frequent infections ENDOCRINE: Absent: unexplained weight gain, unexplained weight loss, heat intolerance, cold intolerance NEUROLOGIC: Absent: headache, focal weakness or paresthesias, dizziness, unsteady gait, seizure, mental status changes, bladder or bowel incontinence PHYSICAL EXAMINATION Vital Signs - 24 hr 10/28/17 10/29/17 10/29/17 21:46 00:30 03:28 Temperature Pulse Rate 81 Respiratory 18 18 Rate Blood Pressure 115/70 10/29/17 10/29/17 07:05 10:37 Temperature 98.5 F 97.9 F Pulse Rate 103 H 85 Respiratory 16 18 Rate Blood Pressure 112/77 130/84 GENERAL: Awake, alert, and fully oriented, in no acute distress. HEAD: Normal with no signs of trauma. EYES: Pupils equal, round and reactive to light, extraocular movements intact, sclera anicteric, conjunctiva clear. No lid lag. EARS, NOSE, THROAT: Ears normal, nares patent, oropharynx clear without exudates. Moist mucous membranes. NECK: Normal range of motion, supple without lymphadenopathy, JVD, or masses. LUNGS: Breath sounds equal, clear to auscultation bilaterally. No wheezes, and no crackles. No accessory muscle use. HEART: Regular rate and rhythm, normal S1 and S2, S3 noted. nN other murmur, rub or gallop. ABDOMEN: Voluntary guarding, increased tone. Pain on palpation in RLQ, LLQ. No rebound tender, negative murphys. No hepatomegaly or splenomegaly, no masses. RLQ lateral incision from prior surgery. MUSCULOSKELETAL: Normal range of motion at all joints. No bony deformities or tenderness. No CVA tenderness. UPPER EXTREMITIES: 2+ pulses, warm, well-perfused. No cyanosis. No clubbing. No peripheral edema. LOWER EXTREMITIES: BL dry skin from knee down. 2+ pulses, warm, well-perfused. No calf tenderness. No peripheral edema. NEUROLOGICAL: Cranial nerves II-XII intact. Normal speech. Gait not evaluated. PSYCHIATRIC: Cooperative. Good eye contact. Appropriate mood and affect. SKIN: Warm, dry, normal turgor, no rashes or lesions noted, normal capillary refill. Rectal: Limited due to pt discomfort, withdrawal from pain. No external hemorrhoids, skin tags or blood noted at anal meatus. No large masses or hemorrhoids noted on digital exam, unable to adequately assess for presence of stool in rectal vault. Labs pending No micro No EKG No CXR ASSESSMENT/PLAN:
[2017-10-29] MEDS: DOCUSATE SODIUM 100 MG CAPSULE (FP) PO SCH (23:01)
[2017-10-29] MEDS: DOXAZOSIN MESYLATE 2 MG TABLET (FP) PO SCH (23:01)
[2017-10-29] MEDS: ATORVASTATIN CA 40 MG TABLET (FP) PO SCH (23:02)
[2017-10-29] MEDS: MINERAL OIL/PETROLAT/WATER TOPICAL CREAM 113 GM JAR TP SCH (23:02)
[2017-10-29] MEDS: THIAMINE HCL 100 MG TABLET (FP) PO SCH (23:03)
== END 2017-10-30 01:45 | disposition short-term general hospital (02) | DRG 772 ==
LOC: YASAS 14:17 → Y3N 21:12 → Y5N 22:58
PROVIDERS: ADMIT Internal Medicine; ATTEND Psychiatry & Neurology Psychiatry
PROC: HZ42ZZZ Group Counseling for Substance Abuse Treatment, Cognitive-Behavioral (ICD-10-PCS; principal; 2017-10-21)
DX: F11.23 Opioid dependence with withdrawal (principal); F14.20 Cocaine dependence, uncomplicated; F17.213 Nicotine dependence, cigarettes, with withdrawal; F39 Unspecified mood [affective] disorder; N17.9 Acute kidney failure, unspecified; I50.9 Heart failure, unspecified; I10 Essential (primary) hypertension; E78.5 Hyperlipidemia, unspecified; N28.9 Disorder of kidney and ureter, unspecified; K59.00 Constipation, unspecified; K62.5 Hemorrhage of anus and rectum; R76.11 Nonspecific reaction to tuberculin skin test without active tuberculosis; Z87.898 Personal history of other specified conditions; Z91.018 Allergy to other foods; Z59.0 Homelessness
CPT/HCPCS: 36415; 71020-TC; 80048; 80053; 81003; 81015; 83735; 84100; 85025; 85027; 86593; 93005; 93010

== ENCOUNTER 2017-10-29 12:11 | Inpatient (IN) | payer OTHER ==
[2017-10-29 12:28] VITALS: BMI 21.8
--- NOTE | 2017-10-29 12:32 | PDOC ---
Attending Attestation - Resident Resident Name: Tre Kilpatrick - ED Attending Attestation I have performed the following: I have examined & evaluated the patient, The case was reviewed & discussed with the resident, I agree w/resident's findings & plan, Exceptions are as noted - HPI HPI: 10/29/17 12:31 Rectal Bleeding - Physicial Exam PE: 10/29/17 12:32 VSS/NAD - Medical Decision Making 10/29/17 12:[address] Kilpatrick Assessment and Plan
[2017-10-29] MEDS ORDERED: SODIUM CHLORIDE 1,000 ML IV STA (12:36)
[2017-10-29] MEDS ORDERED: MINERAL OIL ENEMA 133 ML ENEMA PR ONE (12:37)
--- NOTE | 2017-10-29 12:54 | PDOC ---
History of Present Illness - General Chief Complaint: Constipation Stated Complaint: RECTAL BLEEDING Time Seen by Provider: 10/29/17 12:16 History Source: Patient Exam Limitations: No Limitations - History of Present Illness Initial Comments: 10/29/17 12:50 Patient is a 52M with history of heroin abuse, htn, depression and recent weight loss here today from rehab complaining of constipation. He says his last normal bowel movement was one week ago. He reports several small amount of liquid stool but not passing anything solid. He is also complaining of associated abdominal tenderness. Denies nausea, vomiting, fevers, chills. He states that he's had problems with constipation in the past that resolved after an enema. Denies pain with urination. Past History - Past Medical History Allergies/Adverse Reactions: Allergies Allergy/AdvReac Type Severity Reaction Status Date / Time Pork/Porcine Containing Allergy Unknown Verified 10/29/17 14:07 Products [Pork/Porcine Product Derivatives] Home Medications: Ambulatory Orders Metoprolol Tartrate [Lopressor -] 100 mg PO DAILY #0 tablet 11/27/11 Aspirin [ASA -] 81 mg PO DAILY 10/21/17 Atorvastatin Ca [Lipitor] 80 mg PO HS 10/21/17 Carvedilol [Coreg -] 6.25 mg PO DAILY 10/21/17 Clopidogrel Bisulfate [Plavix -] 75 mg PO DAILY 10/21/17 Doxazosin Mesylate [Cardura -] 2 mg PO HS 10/21/17 Furosemide [Lasix -] 40 mg PO DAILY 10/21/17 Ranolazine [Ranexa] 500 mg PO BID 10/21/17 Ticagrelor [Brilinta -] 90 mg PO BID 10/21/17 Anemia: No Asthma: No Cancer: No Cardiac Disorders: No CVA: No COPD: Yes CHF: Yes (PULMONARY EDEMA = LASIX) Dementia: No Diabetes: No GI Disorders: No Disorders: No HTN: Yes Hypercholesterolemia: Yes Kidney Stones: No Liver Disease: No Seizures: No Thyroid Disease: No - Surgical History Abdominal Surgery: Yes (Rt inguinal hernia repair) Appendectomy: Yes Cardiac Surgery: No Cholecystectomy: No Lung Surgery: No Neurologic Surgery: No Orthopedic Surgery: No - Reproductive History Testicular Surgery: No - Suicide/Smoking/Psychosocial Hx Smoking History: Current every day smoker Have you smoked in the past 12 months: No Number of Cigarettes Smoked Daily: 5 Cigars Per Day: 0 Information on smoking cessation initiated: No 'Breaking Loose' booklet given: 10/21/17 Hx Alcohol Use: No Drug/Substance Use Hx: Yes (Heroin) Substance Use Type: Cocaine (first use at age 13, $200 daily ), Heroin (first use at age of 22, 10 bags daily.) Hx Substance Use Treatment: Yes (5N, x 2 rehabs.) Review of Systems - Review of Systems Comments:: 10/29/17 12:55 GENERAL/CONSTITUTIONAL: No fever or chills. No weakness. HEAD, EYES, EARS, NOSE AND THROAT: No change in vision. No sore throat. CARDIOVASCULAR: No chest pain or shortness of breath RESPIRATORY: No cough, wheezing, or hemoptysis. GASTROINTESTINAL: No nausea, vomiting. Positive for constipation GENITOURINARY: No dysuria, frequency, or change in urination. MUSCULOSKELETAL: No joint or muscle swelling or pain. No neck or back pain. SKIN: No rash NEUROLOGIC: No headache, vertigo, loss of consciousness, or change in strength/ sensation. ENDOCRINE: No increased thirst. No abnormal weight change ALLERGIC/IMMUNOLOGIC: No hives or skin allergy. *Physical Exam - Vital Signs Last Vital Signs Temp Pulse Resp BP Pulse Ox 97.7 F 64 20 130/94 100 10/29/17 12:25 10/29/17 12:25 10/29/17 12:25 10/29/17 12:25 10/29/17 12:25 - Physical Exam Comments: 10/29/17 12:56 GENERAL: Awake, alert, and fully oriented, in no acute distress HEAD: No signs of trauma, normocephalic, atraumatic EYES: PERRLA, EOMI, sclera anicteric, conjunctiva clear ENT: Auricles normal inspection, hearing grossly normal, nares patent, oropharynx clear without exudates. Moist mucosa LUNGS: No distress, speaks full sentences, clear to auscultation bilaterally HEART: Regular rate and rhythm, normal S1 and S2, no murmurs, rubs or gallops, peripheral pulses normal and equal bilaterally. ABDOMEN: Tender is suprapubic and LLQ. Mass consistent with stool felt in LLQ. No rebound. Normal bowel sounds. EXTREMITIES: Normal inspection, Normal range of motion, no edema. No clubbing or cyanosis. NEUROLOGICAL: Cranial nerves II through XII grossly intact. Normal speech, no focal sensorimotor deficits SKIN: Warm, Dry, normal turgor, no rashes or lesions noted. RECTAL: No hemorrhoids, no masses, hard stool appreciated, small amount of bright red blood on AURELIO exam ED Treatment Course - LABORATORY CBC & Chemistry Diagram: 10/29/17 17:21 10/29/17 13:05 Medical Decision Making - Medical Decision Making 10/29/17 12:58 52M with history of heroin abuse, htn, weight loss, depression here today with constipation and abdominal pain. Vital signs stable and normal. Will attempt to remove obstruction with mineral oil enema and disimpaction. Will evaluate with cbc, cmp, lipase, ua, ct scan abd/pelvis. Differential diagnosis includes, but is not limited to: simple constipation, obstruction, diverticulitis. 10/29/17 13:21 Patient requesting pain control. In rehab for opiates. Will give 10mg ketamine IV for pain control as alternative to opiates. 10/29/17 14:33 Laboratory Tests 10/29/17 10/29/17 10/29/17 12:45 13:05 13:05 WBC 7.1 D Hgb 12.3 Hct 37.7 Plt Count 265 D BUN 117 H* Creatinine 7.3 H Stool Occult Blood Positive CBC normal. BUN and Cr elevated, but below baseline. Stool occult blood positive , bright red blood on exam. 10/29/17 15:10 Patient not tolerating disimpaction. Refusing further exam. Some blood loss visualized on exam. Will evaluate further with repeat CBC at 4:10, will do CT with oral contrast and miralax. 10/29/17 18:28 Laboratory Tests 10/29/17 17:21 Hgb 11.2 L Hct 34.0 L Repeat shows drop of 1.[address] done, pending read. Patient will require admission. Final dispo pending final CT read. 10/29/17 19:[address] Cortez. *DC/Admit/Observation/Transfer Diagnosis at time of Disposition: Constipation - Referrals - Patient Instructions - Post Discharge Activity
[2017-10-29 13:13] LABS: EOS % 2.6 % (0-4.5); HEMATOCRIT 37.7 % (35.4-49); HEMOGLOBIN 12.3 GM/dL (11.7-16.9); LYMPH % 12.1 % (8-40); MCH 28.2 pg (25.7-33.7); MCHC 32.7 g/dl (32.0-35.9); MEAN CELL VOLUME 86.2 fl (80-96); MEAN PLT VOLUME 7.5 fl (7.5-11.1); MONO % 10.3 % (3.8-10.2); PLATELET COUNT 265 K/MM3 (134-434); RBC 4.37 M/mm3 (4.00-5.60); RDW 15.8 % (11.9-15.9); WHITE BLOOD COUNT 7.1 K/mm3 (4.0-10.0)
[2017-10-29] MEDS ORDERED: KETAMINE HCL 200 MG/20 ML VIAL IVPUSH ONE ×2 (13:20→15:05)
[2017-10-29] MEDS ORDERED: KETAMINE HCL 200 MG/20 ML VIAL ONE (13:24)
[2017-10-29 13:40] LABS: ANION GAP 14 (8-16); CALCIUM 9.1 mg/dL (8.5-10.1); CHLORIDE 93 mmol/L (98-107); CO2 29 mmol/L (21-32); GLUCOSE,RANDOM 100 mg/dL (74-106); POTASSIUM 3.6 mmol/L (3.5-5.1); SGOT/AST 16 U/L (15-37); SGPT/ALT 16 U/L (12-78); SODIUM 136 mmol/L (136-145)
[2017-10-29 13:44] LABS: ALK PHOS 77 U/L (45-117); BILIRUBIN,TOTAL 0.4 mg/dL (0.2-1.0); CREATININE 7.3 mg/dL (0.7-1.3)
[2017-10-29 13:45] LABS: LIPASE 274 U/L (73-393)
[2017-10-29 13:46] LABS: BLOOD UREA NITROGEN 117 mg/dL (7-18)
[2017-10-29] MEDS ORDERED: POLYETHYLENE GLYCOL 3350 119 GM BTL PO ONE (15:04)
[2017-10-29 17:47] LABS: HEMOGLOBIN 11.2 GM/dL (11.7-16.9); MCH 28.5 pg (25.7-33.7); MEAN CELL VOLUME 86.2 fl (80-96); MEAN PLT VOLUME 7.9 fl (7.5-11.1); PLATELET COUNT 246 K/MM3 (134-434); RBC 3.95 M/mm3 (4.00-5.60); RDW 15.9 % (11.9-15.9); WHITE BLOOD COUNT 7.3 K/mm3 (4.0-10.0)
--- NOTE | 2017-10-29 21:02 | PDOC ---
*Physical Exam - Vital Signs Last Vital Signs Temp Pulse Resp BP Pulse Ox 97.7 F 63 20 135/87 100 10/29/17 12:25 10/29/17 16:25 10/29/17 12:25 10/29/17 16:25 10/29/17 16:25 - Physical Exam Comments: 10/29/17 21:03 General Appearance: Nourished. No Apparent Distress HEENT: EOMI, NELSON. No Pharyngeal Erythema, Tonsillar Exudate, Tonsillar Erythema Neck: No Cervical Lymphadenopathy Respiratory/Chest: Lungs Clear, Normal Breath Sounds. No Crackles, Rales, Rhonchi, Wheezing Cardiovascular: Regular Rhythm, Regular Rate. No Murmur, Gallops, Rubs Gastrointestinal/Abdominal: Normal Bowel Sounds, Soft. Diffuse mild tenderness to palpation. No Guarding, Rebound, Musculoskeletal: No CVA Tenderness Extremity: Normal Capillary Refill Integumentary: Normal Color, Dry, Warm Neurologic: Fully Oriented, Alert, Normal Mood/Affect, Normal Response, ED Treatment Course - LABORATORY CBC & Chemistry Diagram: 10/29/17 17:21 10/29/17 13:05 - ADDITIONAL ORDERS Additional order review: Laboratory Results 10/29/17 10/29/17 13:05 12:45 Sodium 136 Potassium 3.6 Chloride 93 L Carbon Dioxide 29 Anion Gap 14 BUN 117 H* Creatinine 7.3 H Creat Clearance w eGFR 7.85 Random Glucose 100 Calcium 9.1 Total Bilirubin 0.4 AST 16 D ALT 16 Alkaline Phosphatase 77 Total Protein 9.0 H Albumin 3.0 L Lipase 274 Stool Occult Blood Positive 10/29/17 10/29/17 17:21 13:05 RBC 3.95 L 4.37 MCV 86.2 86.2 MCHC 33.0 32.7 RDW 15.9 15.8 MPV 7.9 7.5 Neutrophils % 74.0 Lymphocytes % 12.1 D Monocytes % 10.3 H Eosinophils % 2.6 D Basophils % 1.0 - Medications Given in the ED: ED Medications Discontinued Medications Generic Name Dose Route Start Last Admin Trade Name Freq PRN Reason Stop Dose Admin Sodium Chloride 1,000 mls @ 1,000 mls/hr 10/29/17 12:36 10/29/17 13:10 Normal Saline - IV 10/29/17 13:35 1,000 mls/hr ASDIR STA Administration Ketamine HCl 10 mg 10/29/17 13:20 10/29/17 13:30 Ketalar - IVPUSH 10/29/17 13:21 10 mg ONCE ONE Administration Ketamine HCl 20 mg 10/29/17 15:05 10/29/17 15:20 Ketalar - IVPUSH 10/29/17 15:06 20 mg ONCE ONE Administration Mineral Oil 133 ml 10/29/17 12:37 10/29/17 13:39 Fleet Mineral Oil Rectal Enema - AL 10/29/17 12:38 Not Given NOW ONE Polyethylene Glycol 17 gm 10/29/17 15:04 10/29/17 15:15 Miralax (For Daily Use) - PO 10/29/17 15:05 17 gm ONCE ONE Administration Progress Note - Progress Note Progress Note: The patient is a 52 year old male with a history of heroin abuse who presents from detox for evaluation of constipation. Patient has not had a bowel movement in 1 week. Miralax, SSE and disimpaction have been unsuccessful. HBG drop of 1 point due to rectal bleed. Pending CT and observation admission. Medical Decision Making - Medical Decision Making 10/29/17 21:[address] demonstrates large amount of impacted stool as read by our radiologist. We discussed with the hospitalist team who accepted the patient for observation admission. *DC/Admit/Observation/Transfer Diagnosis at time of Disposition: Constipation Qualifiers: Constipation type: unspecified constipation type Qualified Code(s): K59.00 - Constipation, unspecified - Discharge Dispostion Condition at time of disposition: Stable Admit: Yes - Referrals - Patient Instructions - Post Discharge Activity
[2017-10-29 22:28] LABS: URINE APPEARANCE CLEAR; URINE BILIRUBIN NEGATIVE (NEGATIVE); URINE BLOOD NEGATIVE (NEGATIVE); URINE COLOR LTYELLOW; URINE GLUCOSE (UA) NEGATIVE (NEGATIVE); URINE KETONE NEGATIVE (NEGATIVE); URINE LEUK ESTERASE NEGATIVE (NEGATIVE); URINE NITRITE NEGATIVE (NEGATIVE); URINE UROBILINOGEN NEGATIVE mg/dL (0.2-1.0)
[2017-10-29 22:35] LABS: URINE PROTEIN 1+ (NEGATIVE)
[2017-10-29 22:39] LABS: EPI CELLS RARE /HPF (FEW); URINE MUCUS RARE
--- NOTE | 2017-10-30 00:39 | PN ---
Teaching Attending Note Name of Resident: Valdez Mcfarland ATTENDING PHYSICIAN STATEMENT I saw and evaluated the patient. I reviewed the resident's note and discussed the case with the resident. I agree with the resident's findings and plan as documented. SUBJECTIVE: OBJECTIVE: ASSESSMENT AND PLAN: patient admitted to observation for fecal impaction and fresh blood pre-rectum after the patient was given an enema and passed some hard stool, he refused more impaction afterwards. he uses heroin daily, last use was few days ago plan admit GI consult fleet enema sallie if the patient does not pass stool
--- NOTE | 2017-10-30 01:35 | HP ---
CHIEF COMPLAINT: Constipation, rectal bleeding PCP: None HISTORY OF PRESENT ILLNESS: 52 yo man w/ pmh of PSA, HTN, CHF (diastolic), renal insufficiency, admitted for rehab on 10/21, now presenting with intermittent small volume rectal bleeding during defecation for past 5 days in setting of constipation. Pt states he has been constipated since 5 days ago and began noting "one teaspoon" of blood during straining. Pt endorses vigorous straining against a "hard mass" with accompanying small amounts of diarrhea. Rectal bleeds only noted during BMs , however has been consistent for past few days and today pt noted "clots" when attempting to defecate. Pt received one enema at rehab center w/ no resolution of constipation. Has been taking imodium for diarrhea from opiate withdrawal. He endorses fatigue, mild intermittent abdominal pain and discomfort. He denies vision changes, CP, cough, SOB, N/V, decreased appetite, dysuria, hematuria, hematemesis, easy bruising. He has never had a GI bleed before. No hx of GI conditions. Patient is currently on ASA and ticagrelor. ER course was notable for: (1)No labs collected in ED (2)Stable vitals (3) Recent Travel: None PAST MEDICAL HISTORY: ESRD HTN PSA IVDU HLD CHF +PPD, treated PAST SURGICAL HISTORY: Smokincigs/day, current smoker Alcohol: Denies Drugs: Heroin 1bag/day, 20-30 yrs; cocaine Social History: Smokincigs/day, current smoker Alcohol: Denies Drugs: Heroin 1bag/day, 20-30 yrs; cocaine Family History: Mother w/ HTN, uterine Ca Father of [place] Allergies Pork/Porcine Containing Products [Pork/Porcine Product Derivatives] Allergy ( Unknown, Verified 10/29/17 14:07) NO PORK HOME MEDICATIONS: Home Medications Medication Instructions Recorded Metoprolol Tartrate [Lopressor -] 100 mg PO DAILY #0 tablet 11/27/11 Aspirin [ASA -] 81 mg PO DAILY 10/21/17 Atorvastatin Ca [Lipitor] 80 mg PO HS 10/21/17 Carvedilol [Coreg -] 6.25 mg PO DAILY 10/21/17 Clopidogrel Bisulfate [Plavix -] 75 mg PO DAILY 10/21/17 Doxazosin Mesylate [Cardura -] 2 mg PO HS 10/21/17 Furosemide [Lasix -] 40 mg PO DAILY 10/21/17 Ranolazine [Ranexa] 500 mg PO BID 10/21/17 Ticagrelor [Brilinta -] 90 mg PO BID 10/21/17 REVIEW OF SYSTEMS CONSTITUTIONAL: generalized weakness, malaise, Absent: fever, chills, diaphoresis, loss of appetite, weight change HEENT: Absent: rhinorrhea, nasal congestion, throat pain, throat swelling, difficulty swallowing, mouth swelling, ear pain, eye pain, visual changes CARDIOVASCULAR: Absent: chest pain, syncope, palpitations, irregular heart rate, lightheadedness , peripheral edema RESPIRATORY: Absent: cough, shortness of breath, dyspnea with exertion, orthopnea, wheezing, stridor, hemoptysis GASTROINTESTINAL: abdominal pain, hematochezia, diarrhea, constipation, melena , Absent: abdominal distension, nausea, vomiting, GENITOURINARY: Absent: dysuria, frequency, urgency, hesitancy, hematuria, flank pain, genital pain MUSCULOSKELETAL: Absent: myalgia, arthralgia, joint swelling, back pain, neck pain SKIN: Absent: rash, itching, pallor HEMATOLOGIC/IMMUNOLOGIC: Absent: easy bleeding, easy bruising, lymphadenopathy, frequent infections ENDOCRINE: Absent: unexplained weight gain, unexplained weight loss, heat intolerance, cold intolerance NEUROLOGIC: Absent: headache, focal weakness or paresthesias, dizziness, unsteady gait, seizure, mental status changes, bladder or bowel incontinence PHYSICAL EXAMINATION Vital Signs - 24 hr 10/29/17 10/29/17 10/29/17 12:25 16:25 23:48 Temperature 97.7 F 98.4 F Pulse Rate 64 Pulse Rate [ 63 68 Apical] Respiratory 20 18 Rate Blood Pressure 130/94 Blood Pressure 135/87 139/86 [Left Arm] O2 Sat by Pulse 100 100 98 Oximetry (%) GENERAL: Awake, alert, and fully oriented, in no acute distress. HEAD: Normal with no signs of trauma. EYES: Pupils equal, round and reactive to light, extraocular movements intact, sclera anicteric, conjunctiva clear. No lid lag. EARS, NOSE, THROAT: Ears normal, nares patent, oropharynx clear without exudates. Moist mucous membranes. NECK: Normal range of motion, supple without lymphadenopathy, JVD, or masses. LUNGS: Breath sounds equal, clear to auscultation bilaterally. No wheezes, and no crackles. No accessory muscle use. HEART: Regular rate and rhythm, normal S1 and S2, S3 noted. nN other murmur, rub or gallop. ABDOMEN: Voluntary guarding, increased tone. Pain on palpation in RLQ, LLQ. No rebound tender, negative murphys. No hepatomegaly or splenomegaly, no masses. RLQ lateral incision from prior surgery. MUSCULOSKELETAL: Normal range of motion at all joints. No bony deformities or tenderness. No CVA tenderness. UPPER EXTREMITIES: 2+ pulses, warm, well-perfused. No cyanosis. No clubbing. No peripheral edema. LOWER EXTREMITIES: BL dry skin from knee down. 2+ pulses, warm, well-perfused. No calf tenderness. No peripheral edema. NEUROLOGICAL: Cranial nerves II-XII intact. Normal speech. Gait not evaluated. PSYCHIATRIC: Cooperative. Good eye contact. Appropriate mood and affect. SKIN: Warm, dry, normal turgor, no rashes or lesions noted, normal capillary refill. Rectal: Limited due to pt discomfort, withdrawal from pain. No external hemorrhoids, skin tags or blood noted at anal meatus. No large masses or hemorrhoids noted on digital exam, unable to adequately assess for presence of stool in rectal vault. Laboratory Results - last 24 hr CBC, BMP 10/29/17 17:21 10/29/17 13:05 10/29/17 10/29/17 10/29/17 12:45 13:05 13:05 WBC 7.1 D RBC 4.37 Hgb 12.3 Hct 37.7 MCV 86.2 MCH 28.2 MCHC 32.7 RDW 15.8 Plt Count 265 D MPV 7.5 Neutrophils % 74.0 Lymphocytes % 12.1 D Monocytes % 10.3 H Eosinophils % 2.6 D Basophils % 1.0 Sodium 136 Potassium 3.6 Chloride 93 L Carbon Dioxide 29 Anion Gap 14 BUN 117 H* Creatinine 7.3 H Creat Clearance w eGFR 7.85 Random Glucose 100 Calcium 9.1 Total Bilirubin 0.4 AST 16 D ALT 16 Alkaline Phosphatase 77 Total Protein 9.0 H Albumin 3.0 L Lipase 274 Urine Color Urine Appearance Urine pH Ur Specific [place] Urine Protein Urine Glucose (UA) Urine Ketones Urine Blood Urine Nitrite Urine Bilirubin Urine Urobilinogen Urine WBC (Auto) Urine RBC (Auto) Ur Epithelial Cells Urine Mucus Stool Occult Blood Positive 10/29/17 10/29/17 17:21 22:10 WBC 7.3 RBC 3.95 L Hgb 11.2 L Hct 34.0 L MCV 86.2 MCH 28.5 MCHC 33.0 RDW 15.9 Plt Count 246 MPV 7.9 Neutrophils % Lymphocytes % Monocytes % Eosinophils % Basophils % Sodium Potassium Chloride Carbon Dioxide Anion Gap BUN Creatinine Creat Clearance w eGFR Random Glucose Calcium Total Bilirubin AST ALT Alkaline Phosphatase Total Protein Albumin Lipase Urine Color Ltyellow Urine Appearance Clear Urine pH 5.0 D Ur Specific [place] 1.011 Urine Protein 1+ H Urine Glucose (UA) Negative Urine Ketones Negative Urine Blood Negative Urine Nitrite Negative Urine Bilirubin Negative Urine Urobilinogen Negative Urine WBC (Auto) 3 Urine RBC (Auto) 1 Ur Epithelial Cells Rare Urine Mucus Rare Stool Occult Blood No micro No EKG Abdominal CT 10/29 - Notable for rectal fecal retention Echo 10/2017 at [facility]: LVEF 40-50% G3-4 diastolic dysfunction, insignificant , moderately dilated left atrium, pulmonary HTN 40-50% mmhg ASSESSMENT/PLAN: 52 yo man w/ pmh of PSA, HTN, CHF (diastolic), renal insufficiency, admitted for rehab on 10/21, now presenting with intermittent small volume rectal bleeding during defecation for past 5 days in setting of constipation. #BRBPR - 5 days BRBPR per pt; no hemorrhoids noted on AURELIO - Transfuse at <7 hgb - Trend CBC - Monitor for further GI bleed - FOBT - Hold brillinta, ASA for now #Constipation - Likely fecal impaction; Pt unable to tolerate dis-impaction - Fleet enema - Golytely if enemas unsuccessful - Consider GI consult if needed #CHF (diastolic) - CHF 10/18 - Continue BB, lasix - Continue Ranexa #HTN - Home norvasc d/c due to lightheadness at rehab - Continue home cardura - Monitor for signs of hypotension #Renal Insufficiency - likely due to heroin abuse per [facility] records - Renal Consult - Trend Cr - Will require outpt f/u evaluation and management #PSA - Monitor for signs of withdrawal - Coordinate with rehab facility on meds #HLD - C/W home lipitor PPX Protonix FEN PO hydration Daily BMPs Regular diet Plan discussed with attending, Dr. Sondra Mcfarland, PGY1 Visit type - Emergency Visit Emergency Visit: Yes ED Registration Date: 10/30/17 Care time: The patient presented to the Emergency Department on the above date and was hospitalized for further evaluation of their emergent condition. - New Patient This patient is new to me today: Yes Date on this admission: 10/30/17 - Critical Care Critical Care patient: No
[2017-10-30] MEDS ORDERED: INSULIN SLIDING SCALE (NOVOLOG) 1 VIAL SQ SCH (07:00)
[2017-10-30] MEDS ORDERED: SODIUM PHOSPHATE/NA BIPHOS 133 ML ENEMA PR ONE (07:00)
--- NOTE | 2017-10-30 08:19 | PN ---
Physical Exam: SUBJECTIVE: Patient seen and examined. c/o of crampy abdominal pain. no fever, chills, ORDAZ, chest pain. OBJECTIVE: Vital Signs Period Temp Pulse Resp BP Sys/Schwartz Pulse Ox Last 24 Hr 97.4 F-98.4 F 63-76 18-20 130-155/86-99 98-100 GENERAL: aaox3, nad EYES: EOMI, sclera anicteric, conjunctiva clear ENT: oropharynx clear without exudates, MMM NECK: supple, no cervical LAD LUNGS: CTAB HEART: rrr, normal s1/s2, no m/r/g, -JVD ABDOMEN: Soft, non-distended, mild ttp in suprapubic/LLQ EXTREMITIES: 2+ DP pulses, wwp, no edema RECTAL: performed by Dr. Valdivia: soft to hard stool in rectal vault CBC, [facility] 10/30/17 09:15 10/30/17 09:15 Hepatic Panel Total Bilirubin 0.6 mg/dL (0.2-1.0) D 10/30/17 09:15 AST 13 U/L (15-37) L 10/30/17 09:15 ALT 14 U/L (12-78) 10/30/17 09:15 Alkaline Phosphatase 63 U/L (45-117) 10/30/17 09:15 Albumin 2.6 g/dl (3.4-5.0) L 10/30/17 09:15 Active Medications Atorvastatin Calcium (Lipitor -) 80 mg PO HS REPLACED BY [facility] Carvedilol (Coreg -) 6.25 mg PO DAILY REPLACED BY [facility] Last Admin: 10/30/17 10:52 Dose: 6.25 mg Doxazosin Mesylate (Cardura -) 2 mg PO HS REPLACED BY [facility] Sodium Chloride (Normal Saline -) 1,000 mls @ 75 mls/hr IV ASDIR STA Stop: 10/31/17 04:59 Last Admin: 10/30/17 17:03 Dose: 75 mls/hr Lactulose (Cephulac (Oral Use)) 20 gm PO QID REPLACED BY [facility] Last Admin: 10/30/17 18:57 Dose: 20 gm Metoprolol Tartrate (Lopressor -) 100 mg PO DAILY REPLACED BY [facility] Last Admin: 10/30/17 10:52 Dose: 100 mg Polyethylene Glycol (Miralax (For Daily Use) -) 17 gm PO TID REPLACED BY [facility] Last Admin: 10/30/17 17:30 Dose: Not Given Ranolazine (Ranexa -) 500 mg PO BID REPLACED BY [facility] Last Admin: 10/30/17 10:52 Dose: 500 mg Senna/Docusate Sodium (Pericolace -) 1 tablet PO BID REPLACED BY [facility] Last Admin: 10/30/17 15:13 Dose: 1 tablet ASSESSMENT/PLAN: 52yo man with PMH of PSA (last used heroine/cocaine 2-3 weeks ago), HTN, diastolic CHF, recent dx of CKD stage 5 who was sent over from [facility] rehab after completing detox for several days of constipation c/b rectal bleeding. #fecal retention, CT AP revealed thickened rectal wall, guaiac+ stool -Pt declined manual disimpaction, will give Golytely, Pericolace, and lactulose -Will offer fleet mineral oil tomorrow (Lactate wnl, unlikely bowel ischemia and therefore decreased risk of perf) -IVF #CKD stage 5 of clear etiology, does not have nephrotic range proteinuria -Renal consult. -f/u extensive lab work-up. Will likely need kidney biopsy -renal U/S completed, interpretation pending #diastolic CHF -Faxed HIPPA release form to [facility] for collateral records, awaiting records -Patient reports not taking any regular home medications. [place] pharmacy contacted and had only a recent Rx order from this month: Brilinta 90mg BID Ranexa 500mg BID Cardura 2mg HS Atorvastatin 40mg QD Amlodipine 10mg QD -For now, will continue meds given at [facility] - Coreg and Lopressor, hold diuretics. #?LA - patient on ASA and brilinta - hold in setting of bleeding; confirm hx with [facility] records #PSA - monitor for withdrawal signs. completed detox at [facility], at [facility] for rehab #FEN - IVF / lytes wnl / low Na diet #DVT PPX - SCD's DISPO: continue m/s FULL code d/w Dr. Shea Merlos MD PGY1 - Internal Medicine Visit type - Emergency Visit Emergency Visit: No - New Patient This patient is new to me today: Yes Date on this admission: 10/30/17 - Critical Care Critical Care patient: No - Discharge Referral Referred to [facility] Med P.C.: No
[2017-10-30 09:25] LABS: BASO % 0.9 % (0-2.0); EOS % 3.2 % (0-4.5); HEMOGLOBIN 10.7 GM/dL (11.7-16.9); LYMPH % 11.8 % (8-40); MCHC 32.6 g/dl (32.0-35.9); MEAN PLT VOLUME 7.7 fl (7.5-11.1); MONO % 8.7 % (3.8-10.2); NEUT % 75.4 % (42.8-82.8); PLATELET COUNT 224 K/MM3 (134-434); RBC 3.84 M/mm3 (4.00-5.60); RDW 15.6 % (11.9-15.9); WHITE BLOOD COUNT 7.7 K/mm3 (4.0-10.0)
[2017-10-30 09:59] LABS: ALBUMIN 2.6 g/dl (3.4-5.0); ANION GAP 9 (8-16); BILIRUBIN,TOTAL 0.6 mg/dL (0.2-1.0); CALCIUM 8.2 mg/dL (8.5-10.1); CHLORIDE 95 mmol/L (98-107); CO2 29 mmol/L (21-32); CREATININE 6.9 mg/dL (0.7-1.3); GLUCOSE,RANDOM 115 mg/dL (74-106); POTASSIUM 3.2 mmol/L (3.5-5.1); SGOT/AST 13 U/L (15-37); SGPT/ALT 14 U/L (12-78); SODIUM 133 mmol/L (136-145); TOT PROT 7.7 g/dl (6.4-8.2)
[2017-10-30] MEDS ORDERED: FUROSEMIDE 40 MG TABLET (FP) PO SCH (10:00)
[2017-10-30 10:02] LABS: ALK PHOS 63 U/L (45-117)
[2017-10-30 10:38] LABS: BLOOD UREA NITROGEN 107 mg/dL (7-18)
[2017-10-30] MEDS: CARVEDILOL 6.25 MG TABLET (FP) PO SCH (10:52)
[2017-10-30] MEDS: RANOLAZINE E.R. 500 MG TABLET (FP) PO SCH ×2 (10:52→22:38)
[2017-10-30] MEDS: METOPROLOL TARTRATE 50 MG TABLET (FP) PO SCH (10:52)
[2017-10-30] MEDS ORDERED: POLYETHYLENE GLYCOL 3350 255 GM BTL PO ONE (13:21)
--- NOTE | 2017-10-30 14:59 | CONSULT ---
Consultation: REQUESTING PROVIDER: CONSULT REQUEST: We have been asked to medically evaluate this patient for renal failure. HISTORY OF PRESENT ILLNESS: This is a 52 yo man with pmh of PSA, HTN, HFPEF, renal insufficiency, presenting from [facility] where hes been for Heroin detox/rehab since 10/21 due to rectal bleeding in setting of severe constipation x 5D, rectal stool impaction found on CT. Patient found to be in renal failure, BUN/Creat 107/6.9 GFR 8. Upon review of records his numbers improved slightly since last lab work done in rehab (10/22 Creat 8.8). Patient reports no outpatient physician f/u but states that he was informed of sligh kidney issues several years ago (2011 creat 1.5). He currently complains of some genital burning and mild abdominal pain, he is still constipated. He denies oliguria, flank pain, dark urine, hermaturia, history of IV drug use, Hepatitis or HIV. He reports recent weight loss. He is on daily ASA. Recent Travel: None PAST MEDICAL HISTORY: ESRD HTN PSA IVDU HLD CHF +PPD, treated PAST SURGICAL HISTORY: Smokincigs/day, current smoker Alcohol: Denies Drugs: Heroin 1bag/day, 20-30 yrs; cocaine Social History: Smokincigs/day, current smoker Alcohol: Denies Drugs: Heroin 1bag/day, 20-30 yrs; cocaine Family History: Mother w/ HTN, uterine Ca Father of [place] Allergies Pork/Porcine Containing Products [Pork/Porcine Product Derivatives] Allergy ( Unknown, Verified 10/29/17 14:07) REVIEW OF SYSTEMS: CONSTITUTIONAL: Absent: fever, chills HEENT: Absent: rhinorrhea, nasal congestion, throat pain CARDIOVASCULAR: Absent: chest pain, syncope, palpitations, lightheadedness, peripheral edema RESPIRATORY: Absent: cough, shortness of breath GASTROINTESTINAL: Absent: nausea, vomiting, diarrhea GENITOURINARY: Absent: dysuria, flank pain MUSCULOSKELETAL: Absent: myalgia, arthralgia SKIN: Absent: rash, itching, pallor HEMATOLOGIC/IMMUNOLOGIC: Absent: frequent infections ENDOCRINE: Absent: heat intolerance, cold intolerance NEUROLOGIC: Absent: headache, focal weakness or paresthesias PSYCHIATRIC: Absent: anxiety, depression PHYSICAL EXAMINATION Vital Signs - 24 hr 10/29/17 10/29/17 10/30/17 16:25 23:48 01:00 Temperature 98.4 F 97.4 F L Pulse Rate 74 Pulse Rate [ 63 68 Apical] Respiratory 18 18 Rate Blood Pressure 155/99 Blood Pressure 135/87 139/86 [Left Arm] O2 Sat by Pulse 100 98 99 Oximetry (%) 10/30/17 10/30/17 04:57 10:47 Temperature 97.8 F 98.2 F Pulse Rate 76 73 Pulse Rate [ Apical] Respiratory 18 20 Rate Blood Pressure 138/86 132/87 Blood Pressure [Left Arm] O2 Sat by Pulse Oximetry (%) GENERAL: Awake, alert, and fully oriented, in no acute distress, thin. HEAD: Normal with no signs of trauma. EYES: Pupils equal, round and reactive to light, extraocular movements intact, sclera anicteric, conjunctiva clear. No lid lag. EARS, NOSE, THROAT: E Moist mucous membranes. NECK: Normal range of motion, supple without lymphadenopathy, JVD, or masses. LUNGS: Breath sounds equal, clear to auscultation bilaterally. HEART: Regular rate and rhythm, normal S1 and S2 ABDOMEN: Soft, slightly tender LLQ, not distended, normoactive bowel sounds, no guarding, no rebound, no masses. MUSCULOSKELETAL: No CVA tenderness. UPPER EXTREMITIES: No peripheral edema. LOWER EXTREMITIES: 1+ pulses, warm, well-perfused. No calf tenderness. No peripheral edema. NEUROLOGICAL: Cranial nerves II-XII grossly intact. Normal speech. PSYCHIATRIC: Cooperative. Good eye contact. Appropriate mood and affect. SKIN: Warm, dry Laboratory Results - last 24 hr 10/29/17 10/29/17 10/30/17 17:21 22:10 09:15 WBC 7.3 7.7 RBC 3.95 L 3.84 L Hgb 11.2 L 10.7 L Hct 34.0 L 33.0 L MCV 86.2 86.0 MCH 28.5 28.0 MCHC 33.0 32.6 RDW 15.9 15.6 Plt Count 246 224 MPV 7.9 7.7 Neutrophils % 75.4 Lymphocytes % 11.8 Monocytes % 8.7 Eosinophils % 3.2 Basophils % 0.9 Sodium Potassium Chloride Carbon Dioxide Anion Gap BUN Creatinine Creat Clearance w eGFR Random Glucose Calcium Total Bilirubin AST ALT Alkaline Phosphatase Total Protein Albumin Urine Color Ltyellow Urine Appearance Clear Urine pH 5.0 D Ur Specific [place] 1.011 Urine Protein 1+ H Urine Glucose (UA) Negative Urine Ketones Negative Urine Blood Negative Urine Nitrite Negative Urine Bilirubin Negative Urine Urobilinogen Negative Ur Leukocyte Esterase Negative Urine WBC (Auto) 3 Urine RBC (Auto) 1 Ur Epithelial Cells Rare Urine Mucus Rare 10/30/17 09:15 WBC RBC Hgb Hct MCV MCH MCHC RDW Plt Count MPV Neutrophils % Lymphocytes % Monocytes % Eosinophils % Basophils % Sodium 133 L Potassium 3.2 L Chloride 95 L Carbon Dioxide 29 Anion Gap 9 BUN 107 H* Creatinine 6.9 H Creat Clearance w eGFR 8.38 Random Glucose 115 H Calcium 8.2 L Total Bilirubin 0.6 D AST 13 L ALT 14 Alkaline Phosphatase 63 Total Protein 7.7 Albumin 2.6 L Urine Color Urine Appearance Urine pH Ur Specific [place] Urine Protein Urine Glucose (UA) Urine Ketones Urine Blood Urine Nitrite Urine Bilirubin Urine Urobilinogen Ur Leukocyte Esterase Urine WBC (Auto) Urine RBC (Auto) Ur Epithelial Cells Urine Mucus Active Medications Generic Name Dose Route Start Last Admin Trade Name Freq PRN Reason Stop Dose Admin Atorvastatin Calcium 80 mg 10/30/17 22:00 Lipitor - PO HS DEBBIE Carvedilol 6.25 mg 10/30/17 10:00 10/30/17 10:52 Coreg - PO 6.25 mg DAILY DEBBIE Administration Doxazosin Mesylate 2 mg 10/30/17 22:00 Cardura - PO HS DEBBIE Metoprolol Tartrate 100 mg 10/30/17 10:00 10/30/17 10:52 Lopressor - PO 100 mg DAILY DEBBIE Administration Ranolazine 500 mg 10/30/17 10:00 10/30/17 10:52 Ranexa - PO 500 mg BID DEBBIE Administration Senna/Docusate Sodium 1 tablet 10/30/17 13:30 Pericolace - PO BID DEBBIE ASSESSMENT/PLAN: This is a 52 yo man with pmh of PSA, HTN, HFPEF, renal insufficiency, presenting from [facility] where hes been for Heroin detox/rehab since 10/21 due to rectal bleeding in setting of severe constipation x 5D, rectal stool impaction found on CT. Patient found to be in renal failure CKD vs ANUEL -unknown etiology -BUN/Creat 107/6.9 GFR 8; making urine, hyponatremia, hypochloremia, hypokalemia. -history of NSAID use -start IVF NS @ 75 x 1 L -hiv, hepatitis panels -complement 3 and 4, SHERICE, ANCA, serum protein electrophoresis -urine lytes, creat, kidney/bladder US -Hold all a/c in anticipation of Renal biopsy -monitor renal function, uo -avoid nephrotoxic agents Constipation, GIB -stool impaction on CT -may have coagulopathy due to renal failure -f/u coags -further workup per GI HFPEF -stable, appears volume contracted -continue liptor, coreg Dispo: We will continue to follow the patient. Thank you for this consultative opportunity. Visit type - Emergency Visit Emergency Visit: Yes ED Registration Date: 10/30/17 Care time: The patient presented to the Emergency Department on the above date and was hospitalized for further evaluation of their emergent condition. - New Patient This patient is new to me today: Yes Date on this admission: 10/30/17 - Critical Care Critical Care patient: No
[2017-10-30] MEDS: SENNOSIDES/DOCUSATE COMBO (SENNA PLUS) TABLET (UD) PO SCH ×2 (15:13→22:38)
[2017-10-30] MEDS ORDERED: SODIUM CHLORIDE 1,000 ML IV STA (15:40)
--- NOTE | 2017-10-30 16:18 | PN ---
Teaching Attending Note Name of Resident: Hanna Merlos ATTENDING PHYSICIAN STATEMENT I saw and evaluated the patient. I reviewed the resident's note and discussed the case with the resident. I agree with the resident's findings and plan as documented. SUBJECTIVE: denies abd pain, has no N/V, no CP . has pain in rectum , has no fever or chills. denies taking any meds as outpt , although some are prescribed for him. he does not remember meds OBJECTIVE: NAD , AAOX3. dry MM, no JVD , no facial droop. CV: RRR, no MRG , No JVD Lung s: CTAB Abd: soft, Nt, ND , fecal mass felt in suprapubic area. Ext: no edema Rectal: NL hair distribution, soft to hard stool felt in rectum , he declined disimpaction . No hemorrhoids ASSESSMENT AND PLAN: 52 y/o man with h/o polysubstance abuse , HTN, diastolic heart failure , and recent diagnosis of CKD 5, who presented [facility] with rectal bleed in the setting of constipation. 1- Fecal impaction: due to opioids use - declined manual dis-impaction - start lactulose qid - miralax TID - petrona/colace - check lactic , if neg can give enemas 2- CKD 5, recent diagnosis x 6 months. No clear details. No bx done in past Urine with no active sediment DDx includes vasculitidis, focal segmental glomerulosclerosis , MM , amyloidosis and other etiologies - check Urine protein /cr ratio - check UPEP and SPEP -IV hydration , as he looks clinically volume depleted , was on lasix at [facility] 20 BID - hold lasix - renal consult - might need Bx - no signs of uremia requiring urgent HD 3- h/o D CHF , no volume overload. not clear of his meds . will confirm, hold diuretics 4- He denies CAD, but meds indicate asa and brilinta will confirm . 5- oipioid abuse : finished detox. monitor HLOC
--- NOTE | 2017-10-30 17:04 | PN ---
Teaching Attending Note Name of Resident: Margarita Roberts (Nephrology) ATTENDING PHYSICIAN STATEMENT I saw and evaluated the patient. I reviewed the resident's note and discussed the case with the resident. I agree with the resident's findings and plan as documented. Renal Consult Pt is a 52 year old male with pmhx of heroin use, HTN, CKD and depression who presents complaining of constipation. He was found to be in acute renal failure and I was called to evaluate him. He says he does have history of CKD however does not know his baseline creatinine and does not follow with a doctor. He says he lives in [place] however has been "bouncing around" from hospital to hospital. He says he last used heroin about 2 weeks ago. He does get dysuria at times. He denies hematuria. He denies shortness of breath. pmhx htn ckd social hx heroin use allergies pork family hx denies ros anxiety Current Medications Generic Name Dose Route Start Last Admin Trade Name Freq PRN Reason Stop Dose Admin Atorvastatin Calcium 80 mg 10/30/17 22:00 Lipitor - PO HS DEBBIE Carvedilol 6.25 mg 10/30/17 10:00 10/30/17 10:52 Coreg - PO 6.25 mg DAILY DEBBIE Administration Doxazosin Mesylate 2 mg 10/30/17 22:00 Cardura - PO HS DEBBIE Sodium Chloride 1,000 mls @ 75 mls/hr 10/30/17 15:40 Normal Saline - IV 10/31/17 04:59 ASDIR STA Lactulose 20 gm 10/30/17 18:00 Cephulac (Oral Use) PO QID DEBBIE Metoprolol Tartrate 100 mg 10/30/17 10:00 10/30/17 10:52 Lopressor - PO 100 mg DAILY DEBBIE Administration Polyethylene Glycol 17 gm 10/30/17 16:15 Miralax (For Daily Use) - PO TID DEBBIE Ranolazine 500 mg 10/30/17 10:00 10/30/17 10:52 Ranexa - PO 500 mg BID DEBBIE Administration Senna/Docusate Sodium 1 tablet 10/30/17 13:30 10/30/17 15:13 Pericolace - PO 1 tablet BID DEBBIE Administration Last Vital Signs Temp Pulse Resp BP Pulse Ox 98.2 F 59 L 20 119/71 99 10/30/17 14:08 10/30/17 14:08 10/30/17 14:08 10/30/17 14:08 10/30/17 01:00 Current Active Problems Constipation (Acute) Laboratory Tests 11/05/11 11/10/11 10/22/17 07:45 11:20 08:15 Hgb Sodium Potassium Chloride BUN Creatinine 1.4 H 1.5 H 8.8 H* D Urine Protein Ur Random Sodium Ur Random Potassium Ur Random Chloride Urine Creatinine 10/26/17 10/27/17 10/29/17 07:45 06:00 13:05 Hgb Sodium Potassium Chloride BUN 117 H* Creatinine 8.6 H* 8.0 H* 7.3 H Urine Protein Ur Random Sodium Ur Random Potassium Ur Random Chloride Urine Creatinine 10/29/17 10/29/17 10/30/17 17:21 22:10 09:15 Hgb 11.2 L 10.7 L Sodium Potassium Chloride BUN Creatinine Urine Protein 1+ H Ur Random Sodium Ur Random Potassium Ur Random Chloride Urine Creatinine 10/30/17 10/30/17 10/30/17 09:15 16:00 16:00 Hgb Sodium 133 L Potassium 3.2 L Chloride 95 L BUN 107 H* Creatinine 6.9 H Urine Protein Ur Random Sodium Pending Ur Random Potassium Pending Ur Random Chloride Pending Urine Creatinine Pending cardio s1s2 reg pulm clear GI soft ext neg edema neuro awake and alert skin neg rash wnl curc pos pules psych calm Impression 1. ANUEL 2. heroin use 3. HTN 4. hx CKD 5. constipation Plan - will give trial of fluids - check ua and lytes - check renal ultrasond - will send ckd workup - discussed possibility of HD of his renal function does not improve - avoid nsaids - monitor bp - avoid magnesium containing GI agents - avoid phosphorus containing bowel preps - will check anca ahsna hep panel hiv - will comment more on etiology of ANUEL after more data is gathered Dr Bunn
[2017-10-30] MEDS: POLYETHYLENE GLYCOL 3350 119 GM BTL PO SCH ×2 (17:30→23:38)
[2017-10-30] MEDS: LACTULOSE 20 GM/30 ML UDC (FOR ORAL USE ONLY) PO SCH ×3 (18:57→23:42)
[2017-10-30] MEDS ORDERED: ATORVASTATIN CA 80 MG TABLET (FP) PO SCH (22:00)
[2017-10-30] MEDS: DOXAZOSIN MESYLATE 2 MG TABLET (FP) PO SCH (23:50)
[2017-10-31 00:02] LABS: URINE CREATININE 71.9 mg/dL (20-370)
[2017-10-31] MEDS: POLYETHYLENE GLYCOL 3350 119 GM BTL PO SCH ×3 (05:49→22:45)
[2017-10-31 08:37] LABS: HEMATOCRIT 32.3 % (35.4-49); HEMOGLOBIN 10.4 GM/dL (11.7-16.9); MCH 27.8 pg (25.7-33.7); MCHC 32.2 g/dl (32.0-35.9); MEAN CELL VOLUME 86.2 fl (80-96); MEAN PLT VOLUME 7.9 fl (7.5-11.1); PLATELET COUNT 206 K/MM3 (134-434); RBC 3.75 M/mm3 (4.00-5.60); RDW 16.1 % (11.9-15.9); WHITE BLOOD COUNT 8.5 K/mm3 (4.0-10.0)
[2017-10-31 08:55] LABS: ALBUMIN 2.5 g/dl (3.4-5.0); ALK PHOS 59 U/L (45-117); ANION GAP 10 (8-16); BILIRUBIN,TOTAL 0.5 mg/dL (0.2-1.0); BLOOD UREA NITROGEN 93 mg/dL (7-18); CALCIUM 8.2 mg/dL (8.5-10.1); CHLORIDE 97 mmol/L (98-107); CO2 29 mmol/L (21-32); CREATININE 6.1 mg/dL (0.7-1.3); GLUCOSE,RANDOM 88 mg/dL (74-106); POTASSIUM 3.3 mmol/L (3.5-5.1); SGOT/AST 14 U/L (15-37); SGPT/ALT 14 U/L (12-78); SODIUM 136 mmol/L (136-145); TOT PROT 7.3 g/dl (6.4-8.2)
[2017-10-31 09:10] LABS: INR 1.11 (0.82-1.09); PROTHROMBIN TIME (PATIENT) 12.5 SEC (9.98-11.88)
[2017-10-31] MEDS: CARVEDILOL 6.25 MG TABLET (FP) PO SCH (11:54)
[2017-10-31] MEDS: LACTULOSE 20 GM/30 ML UDC (FOR ORAL USE ONLY) PO SCH ×2 (11:55→22:46)
[2017-10-31] MEDS: RANOLAZINE E.R. 500 MG TABLET (FP) PO SCH ×2 (11:55→22:47)
[2017-10-31] MEDS: SENNOSIDES/DOCUSATE COMBO (SENNA PLUS) TABLET (UD) PO SCH ×2 (11:55→22:45)
[2017-10-31] MEDS: METOPROLOL TARTRATE 50 MG TABLET (FP) PO SCH (11:58)
--- NOTE | 2017-10-31 12:03 | PN ---
Teaching Attending Note Name of Resident: Malachi Mcdonough ATTENDING PHYSICIAN STATEMENT I saw and evaluated the patient. I reviewed the resident's note and discussed the case with the resident. I agree with the resident's findings and plan as documented. SUBJECTIVE: Denies abd pain, had a lot of BMs last night . minimal discomfort in rectum, minimal blood with BMs. OBJECTIVE: NAD , AAOX3. MMM CV: RRR, no MRG , No JVD Lungs: CTAB Abd: soft, Nt, ND , fecal mass felt in RLQ Ext: no edema ASSESSMENT AND PLAN: 52 y/o man with h/o polysubstance abuse , HTN, diastolic heart failure , and recent diagnosis of CKD 5, who presented [facility] with rectal bleed in the setting of constipation. 1- Fecal impaction: due to opioids use - had BMS after miralax preb yesterday. did not receive enema - cont bowel regimen 2- CKD 5, recent diagnosis x 6 months. No clear details. No bx done in past Urine with no active sediment DDx includes vasculitidis, focal segmental glomerulosclerosis , MM , amyloidosis and other etiologies -no nephrotic range proteinuria as per protein /cr ratio - UPEP and SPEP pending - will resume IVF as he responded to them and now has diarrhea with bowel regimen - Appreciate renal help 3- h/o Diastolic CHF , no volume overload. some of meds confirmed withpharmacy. - dc metoprolol , not on it , and he occasionally uses cocaine - cont coreg as it has alpha blockage - patient was notified at risk of using cocaine while on BB 4 HTN: norvasc was prescribed for him - 5-He denies CAD, but after calling pharmacy, brilinta was prescribed to him. No aspirin any way , will hold due to minimal rectal bleed 5- Oipioid abuse : finished detox. monitor HLOC
[2017-10-31] MEDS: SODIUM CHLORIDE 1,000 ML IV SCH (12:08)
--- NOTE | 2017-10-31 16:02 | PN ---
Physical Exam: SUBJECTIVE: Patient seen and examined at bedside. Overnight had several large BM 's. No new complaints. Feels better today. Denies CP,ORDAZ, SOB, abdominal pain, or N/V. OBJECTIVE: Vital Signs Period Temp Pulse Resp BP Sys/Schwartz Pulse Ox Last 24 Hr 98.0 F-98.4 F 64-68 18-18 111-127/72-84 99 GENERAL: AAOx3, NAD HEAD: NC/AT EYES: PERRLA ENT: moist mucous membranes. NECK: supple, no JVD LUNGS: CTAB, no wheezing, rales or rhonchi HEART: RRR, No M/G/R ABDOMEN: Soft, nontender, nondistended, Fecal mass RLQ EXTREMITIES: 2+ pulses, warm, well-perfused, no edema. NEUROLOGICAL: Normal speech, gait not observed. PSYCH: Normal mood, normal affect. Laboratory Results - last 24 hr 10/30/17 10/30/17 10/30/17 16:00 16:00 16:00 WBC RBC Hgb Hct MCV MCH MCHC RDW Plt Count MPV PT with INR INR Sodium Potassium Chloride Carbon Dioxide Anion Gap BUN Creatinine Creat Clearance w eGFR Random Glucose Hemoglobin A1c % Lactic Acid 1.0 Calcium Total Bilirubin AST ALT Alkaline Phosphatase Total Protein Albumin TSH Free T4 U Random Total Protein Ur Random Sodium 39 Ur Random Potassium 26.9 Ur Random Chloride 37 Urine Creatinine 72.2 Protein/Creatinin Ratio HIV 1&2 Antibody Screen HIV P24 Antigen 10/30/17 10/30/17 10/30/17 18:00 18:00 19:30 WBC RBC Hgb Hct MCV MCH MCHC RDW Plt Count MPV PT with INR INR Sodium Potassium Chloride Carbon Dioxide Anion Gap BUN Creatinine Creat Clearance w eGFR Random Glucose Hemoglobin A1c % Lactic Acid Calcium Total Bilirubin AST ALT Alkaline Phosphatase Total Protein Albumin TSH 0.70 Free T4 1.01 U Random Total Protein 75 H Ur Random Sodium Ur Random Potassium Ur Random Chloride Urine Creatinine 71.9 Protein/Creatinin Ratio 1.0 HIV 1&2 Antibody Screen Negative HIV P24 Antigen Negative 10/31/17 10/31/17 10/31/17 07:30 07:30 07:30 WBC 8.5 RBC 3.75 L Hgb 10.4 L Hct 32.3 L MCV 86.2 MCH 27.8 MCHC 32.2 RDW 16.1 H Plt Count 206 MPV 7.9 PT with INR 12.50 H INR 1.11 Sodium 136 Potassium 3.3 L Chloride 97 L Carbon Dioxide 29 Anion Gap 10 BUN 93 H Creatinine 6.1 H Creat Clearance w eGFR 9.66 Random Glucose 88 D Hemoglobin A1c % Lactic Acid Calcium 8.2 L Total Bilirubin 0.5 AST 14 L ALT 14 Alkaline Phosphatase 59 Total Protein 7.3 Albumin 2.5 L TSH Free T4 U Random Total Protein Ur Random Sodium Ur Random Potassium Ur Random Chloride Urine Creatinine Protein/Creatinin Ratio HIV 1&2 Antibody Screen HIV P24 Antigen 10/31/17 07:30 WBC RBC Hgb Hct MCV MCH MCHC RDW Plt Count MPV PT with INR INR Sodium Potassium Chloride Carbon Dioxide Anion Gap BUN Creatinine Creat Clearance w eGFR Random Glucose Hemoglobin A1c % 5.9 Lactic Acid Calcium Total Bilirubin AST ALT Alkaline Phosphatase Total Protein Albumin TSH Free T4 U Random Total Protein Ur Random Sodium Ur Random Potassium Ur Random Chloride Urine Creatinine Protein/Creatinin Ratio HIV 1&2 Antibody Screen HIV P24 Antigen Active Medications Generic Name Dose Route Start Last Admin Trade Name Freq PRN Reason Stop Dose Admin Atorvastatin Calcium 40 mg 10/31/17 11:55 Lipitor - PO HS DEBBIE Carvedilol 6.25 mg 10/30/17 10:00 10/31/17 11:54 Coreg - PO 6.25 mg DAILY DEBBIE Administration Doxazosin Mesylate 2 mg 10/30/17 22:00 10/30/17 23:50 Cardura - PO Not Given HS DEBBIE Sodium Chloride 1,000 mls @ 75 mls/hr 10/31/17 12:00 Normal Saline - IV ASDIR DEBBIE Lactulose 20 gm 10/31/17 22:00 Cephulac (Oral Use) PO BID DEBBIE Polyethylene Glycol 17 gm 10/30/17 16:15 10/31/17 05:49 Miralax (For Daily Use) - PO Not Given TID DEBBIE Ranolazine 500 mg 10/30/17 10:00 10/31/17 11:55 Ranexa - PO 500 mg BID DEBBIE Administration Senna/Docusate Sodium 1 tablet 10/30/17 13:30 10/31/17 11:55 Pericolace - PO 1 tablet BID DEBBIE Administration ASSESSMENT/PLAN: 52 y/o man with h/o polysubstance abuse , HTN, diastolic heart failure , and recent diagnosis of CKD 5, who presented from [facility] with rectal bleed in the setting of constipation and admitted for ANUEL. Problem List - Problems (1) Constipation Assessment/Plan: Most likely 2/2 chronic opiod use. * Mirlax Bowel prep yesterday * Continue Lactulose. * Senna/colace BID * fleet enema PRN (2) ANUEL (acute kidney injury) Assessment/Plan: CKD stage 5 recently diagnosed. No clear etiology. Differential include vasculitis, FSG, MM, amyloid and other. * SPEP and UPEP pending * Nephrology consult appreciated. * No active sediment in UA * IVF and kidney function improving. * recieved lasix for suspition of overload in [facility]. * Diuretic D/C'd * May need biopsy as outpatient. (3) CHF (congestive heart failure) Assessment/Plan: No signs of fluid overload at this time. * Lasix stopped 2/2 ANUEL * Will stop BB 2/2 continued cocaine use. (4) Hypertension Assessment/Plan: Will start Norvasc for BP control. * BB held 2/2 cocaine use. (5) Hyperlipidemia Assessment/Plan: Will continue Lipitor 40 mg PO HS. (6) CAD (coronary artery disease) Assessment/Plan: He has had cardiac cath in past but no stents. * Will continue Ranexa for angina. (7) Cocaine dependence Assessment/Plan: counseled on the importance of quitting and negative health effects of continued use. Visit type - Emergency Visit Emergency Visit: Yes ED Registration Date: 10/30/17 Care time: The patient presented to the Emergency Department on the above date and was hospitalized for further evaluation of their emergent condition. - New Patient This patient is new to me today: Yes Date on this admission: 10/31/17 - Critical Care Critical Care patient: No
--- NOTE | 2017-10-31 18:48 | PN ---
Progress Note (short form) - Note Progress Note: probable morelia s/p fluid challenge poss underlying ckd h/o polysubstance abuse , HTN, diastolic heart failure , CKD 5, w constipation/ Fecal impaction: due to opioids use H/o Diastolic CHF , no volume overload. O TID [facility] Last Admin: 10/31/17 17:06 Dose: Not Given Ranolazine (Ranexa -) 500 mg PO BID [facility] Last Admin: 10/31/17 11:55 Dose: 500 mg Senna/Docusate Sodium (Pericolace -) 1 tablet PO BID [facility] Last Admin: 10/31/17 11:55 Dose: 1 tablet Last Vital Signs Temp Pulse Resp BP Pulse Ox 98.3 F 69 18 117/71 99 10/31/17 18:44 10/31/17 18:44 10/31/17 18:44 10/31/17 18:44 10/30/17 21:00 Lungs clear Heart Reg Abd soft nontender ext no edema CBC, BMP 10/31/17 07:30 10/31/17 07:30 IMP CKD heart disease/heart failure Plan- trial of hydration monitor renal function
[2017-10-31] MEDS ORDERED: PT OWN MED DRAWER 7, Y5N ONE (21:15)
[2017-10-31] MEDS: DOXAZOSIN MESYLATE 2 MG TABLET (FP) PO SCH (22:47)
[2017-10-31] MEDS: ATORVASTATIN CA 80 MG TABLET (FP) PO SCH (22:47)
[2017-11-01] MEDS: POLYETHYLENE GLYCOL 3350 119 GM BTL PO SCH ×3 (06:32→22:41)
[2017-11-01] MEDS: SODIUM CHLORIDE 1,000 ML IV SCH ×3 (06:32→22:44)
[2017-11-01 06:36] LABS: HBSAG SCREEN Negative (Negative); HEP B CORE AB, TOT Negative (Negative)
[2017-11-01 08:05] LABS: BASO % 0.8 % (0-2.0); EOS % 3.9 % (0-4.5); HEMATOCRIT 29.7 % (35.4-49); HEMOGLOBIN 9.7 GM/dL (11.7-16.9); LYMPH % 13.7 % (8-40); MCH 28.1 pg (25.7-33.7); MCHC 32.7 g/dl (32.0-35.9); MEAN CELL VOLUME 85.9 fl (80-96); MEAN PLT VOLUME 8.1 fl (7.5-11.1); MONO % 11.2 % (3.8-10.2); NEUT % 70.4 % (42.8-82.8); PLATELET COUNT 182 K/MM3 (134-434); RBC 3.45 M/mm3 (4.00-5.60); WHITE BLOOD COUNT 7.8 K/mm3 (4.0-10.0)
[2017-11-01 08:14] LABS: ALBUMIN 2.4 g/dl (3.4-5.0); ANION GAP 8 (8-16); BLOOD UREA NITROGEN 83 mg/dL (7-18); CALCIUM 8.4 mg/dL (8.5-10.1); CHLORIDE 99 mmol/L (98-107); CO2 30 mmol/L (21-32); GLUCOSE,RANDOM 92 mg/dL (74-106); POTASSIUM 3.6 mmol/L (3.5-5.1); SODIUM 137 mmol/L (136-145)
[2017-11-01 08:17] LABS: ALK PHOS 54 U/L (45-117); BILIRUBIN,TOTAL 0.4 mg/dL (0.2-1.0); CREATININE 5.8 mg/dL (0.7-1.3); SGOT/AST 13 U/L (15-37); SGPT/ALT 12 U/L (12-78); TOT PROT 7.1 g/dl (6.4-8.2)
[2017-11-01] MEDS: amLODIPine BESYLATE 5 MG TABLET (FP) PO SCH (10:53)
[2017-11-01] MEDS: RANOLAZINE E.R. 500 MG TABLET (FP) PO SCH ×2 (10:53→22:42)
[2017-11-01] MEDS: LACTULOSE 20 GM/30 ML UDC (FOR ORAL USE ONLY) PO SCH ×2 (10:54→22:41)
[2017-11-01] MEDS: SENNOSIDES/DOCUSATE COMBO (SENNA PLUS) TABLET (UD) PO SCH ×2 (10:54→22:41)
--- NOTE | 2017-11-01 15:34 | PN ---
Progress Note (short form) - Note Progress Note: Subjective: no fever or chills. Objective: Vital Signs: Last Vital Signs Temp Pulse Resp BP Pulse Ox 97.8 F 94 H 18 142/81 99 11/01/17 15:06 11/01/17 15:06 11/01/17 15:06 11/01/17 15:06 11/01/17 09:00 Laboratory Results - last 24 hr 10/30/17 10/30/17 11/01/17 18:00 18:00 06:45 WBC 7.8 RBC 3.45 L Hgb 9.7 L Hct 29.7 L MCV 85.9 MCH 28.1 MCHC 32.7 RDW 16.0 H Plt Count 182 MPV 8.1 Neutrophils % 70.4 Lymphocytes % 13.7 Monocytes % 11.2 H Eosinophils % 3.9 Basophils % 0.8 Sodium Potassium Chloride Carbon Dioxide Anion Gap BUN Creatinine Creat Clearance w eGFR Random Glucose Calcium Total Bilirubin AST ALT Alkaline Phosphatase Total Protein Albumin Hepatitis A Ab Total Negative Hep Bs Antigen Negative Hep Bs Antibody Non reactive Hep B Core Total Ab Negative Hepatitis C Antibody <0.1 11/01/17 06:45 WBC RBC Hgb Hct MCV MCH MCHC RDW Plt Count MPV Neutrophils % Lymphocytes % Monocytes % Eosinophils % Basophils % Sodium 137 Potassium 3.6 Chloride 99 Carbon Dioxide 30 Anion Gap 8 BUN 83 H Creatinine 5.8 H Creat Clearance w eGFR 10.24 Random Glucose 92 Calcium 8.4 L Total Bilirubin 0.4 AST 13 L ALT 12 Alkaline Phosphatase 54 Total Protein 7.1 Albumin 2.4 L Hepatitis A Ab Total Hep Bs Antigen Hep Bs Antibody Hep B Core Total Ab Hepatitis C Antibody Physical Exam: NAD , AAOX3. MMM CV: RRR, no MRG , No JVD Lungs: CTAB Abd: soft, Nt, ND , NL BS Ext: no edema ASSESSMENT AND PLAN: 52 y/o man with h/o polysubstance abuse , HTN, diastolic heart failure , and recent diagnosis of CKD 5, who presented [facility] with rectal bleed in the setting of constipation. 1- Fecal impaction: due to opioids use - refused his laxatives this am - cont bowel regimen. advised to comply 2- CKD 5, recent diagnosis x 6 months. No clear details. No bx done in past - no nephrotic range proteinuria as per protein /cr ratio - UPEP and SPEP pending - COnt IVF as he responded to them and now has diarrhea with bowel regimen - Appreciate renal help 3- H/o Diastolic CHF , no volume overload. some of meds confirmed with pharmacy. - Dc'd all BB and started norvasc 4 HTN: norvasc 5-He denies CAD, but after calling pharmacy, brilinta was prescribed to him. No aspirin any way, will hold due to minimal rectal bleed 5- Oipioid abuse: finished detox. monitor HLOC Visit type - Emergency Visit Emergency Visit: Yes ED Registration Date: 10/30/17 Care time: The patient presented to the Emergency Department on the above date and was hospitalized for further evaluation of their emergent condition. - New Patient This patient is new to me today: No - Critical Care Critical Care patient: No - Discharge Referral Referred to [facility] Med P.C.: No
--- NOTE | 2017-11-01 16:15 | PN ---
Progress Note (short form) - Note Progress Note: probable morelia s/p fluid challenge poss underlying ckd Current Medications Amlodipine Besylate (Norvasc -) 5 mg PO DAILY [facility] Last Admin: 11/01/17 10:53 Dose: 5 mg Atorvastatin Calcium (Lipitor -) 40 mg PO HS [facility] Last Admin: 10/31/17 22:47 Dose: 40 mg Doxazosin Mesylate (Cardura -) 2 mg PO HS [facility] Last Admin: 10/31/17 22:47 Dose: 2 mg Sodium Chloride (Normal Saline -) 1,000 mls @ 75 mls/hr IV ASDIR [facility] Last Admin: 11/01/17 16:09 Dose: Not Given Lactulose (Cephulac (Oral Use)) 20 gm PO BID [facility] Last Admin: 11/01/17 10:54 Dose: Not Given Polyethylene Glycol (Miralax (For Daily Use) -) 17 gm PO TID [facility] Last Admin: 11/01/17 16:08 Dose: 17 gm Ranolazine (Ranexa -) 500 mg PO BID [facility] Last Admin: 11/01/17 10:53 Dose: 500 mg Senna/Docusate Sodium (Pericolace -) 1 tablet PO BID [facility] Last Admin: 11/01/17 10:54 Dose: Not Given Last Vital Signs Temp Pulse Resp BP Pulse Ox 97.8 F 94 H 18 142/81 99 11/01/17 15:06 11/01/17 15:06 11/01/17 15:06 11/01/17 15:06 11/01/17 09:00 lungs clear Heart reg abd soft nontender ext no edema CBC, BMP 11/01/17 06:45 11/01/17 06:45 CBC, BMP 10/31/17 07:30 10/31/17 07:30 IMP-substance abuse fecal impaction ckd renal function stable no uremic symptoms Plan- monitor renal function and clinical progress
[2017-11-01] MEDS ORDERED: PT OWN MED DRAWER 7, Y5N ONE (18:52)
[2017-11-01] MEDS: DOXAZOSIN MESYLATE 2 MG TABLET (FP) PO SCH (22:40)
[2017-11-01] MEDS: ATORVASTATIN CA 80 MG TABLET (FP) PO SCH (22:41)
[2017-11-02] MEDS: POLYETHYLENE GLYCOL 3350 119 GM BTL PO SCH ×3 (06:25→22:14)
--- NOTE | 2017-11-02 08:18 | PN ---
Physical Exam: SUBJECTIVE: Patient seen and examined. Small BM this morning, continues to see blood on tissue paper and pain with straining to produce BM, no hematochezia; No fever, chills, chest pain. No dysuria or hematuria. Tolerating diet. OBJECTIVE: Vital Signs Period Temp Pulse Resp BP Sys/Schwartz Pulse Ox Last 24 Hr 97.8 F-99.4 F 83-94 18-18 126-142/81-99 99-100 GENERAL: aaox3, nad EYES: sclera anicteric, conjunctiva clear ENT: MMM LUNGS: CTAB HEART: rrr, normal s1/s2, no m/r/g, (-) JVD ABDOMEN: Soft, non-distended, mild ttp in suprapubic/LLQ EXTREMITIES: 2+ DP pulses, wwp, no edema AURELIO: soft to hard stool in rectal vault CBC, BMP 11/02/17 07:45 11/02/17 07:45 Hepatic Panel Total Bilirubin 0.4 mg/dL (0.2-1.0) 11/01/17 06:45 AST 13 U/L (15-37) L 11/01/17 06:45 ALT 12 U/L (12-78) 11/01/17 06:45 Alkaline Phosphatase 54 U/L (45-117) 11/01/17 06:45 Albumin 2.4 g/dl (3.4-5.0) L 11/01/17 06:45 Active Medications Amlodipine Besylate (Norvasc -) 5 mg PO DAILY [facility] Last Admin: 11/02/17 09:53 Dose: 5 mg Atorvastatin Calcium (Lipitor -) 40 mg PO HS [facility] Last Admin: 11/01/17 22:41 Dose: 40 mg Doxazosin Mesylate (Cardura -) 2 mg PO HS [facility] Last Admin: 11/01/17 22:40 Dose: 2 mg Sodium Chloride (Normal Saline -) 1,000 mls @ 75 mls/hr IV ASDIR [facility] Last Admin: 11/02/17 12:00 Dose: 75 mls/hr Lactulose (Cephulac (Oral Use)) 20 gm PO BID [facility] Last Admin: 11/02/17 09:53 Dose: 20 gm Mineral Oil (Fleet Mineral Oil Rectal Enema -) 133 ml VT NOW ONE Stop: 11/02/17 15:01 Polyethylene Glycol (Miralax (For Daily Use) -) 17 gm PO TID [facility] Last Admin: 11/02/17 14:24 Dose: 17 gm Ranolazine (Ranexa -) 500 mg PO BID [facility] Last Admin: 11/02/17 09:53 Dose: 500 mg Senna/Docusate Sodium (Pericolace -) 1 tablet PO BID [facility] Last Admin: 11/02/17 09:53 Dose: 1 tablet ASSESSMENT/PLAN: 52yo man with PMH of PSA (last used heroine/cocaine 2-3 weeks ago), HTN, diastolic CHF, recent dx of CKD stage 5 who was sent over from [facility] rehab after completing detox for several days of constipation c/b rectal bleeding. #fecal retention, CT AP revealed thickened rectal wall, guaiac+ stool -Patient refused laxatives this AM, d/w patient importance of compliance. He has agreed to comply. Continue Pericolice BID, Lactulose 20mg BID, Miralax TID -Hard stool felt in rectal vault - will give 1x fleet oil enema today #CKD stage 5, Cr improving, work-up for etiology in progress; does not have nephrotic range proteinuria -d/w Renal and pt likely need for kidney biopsy; need to wait 7days since last ASA -f/u extensive lab work-up #diastolic CHF - no e/o overload -Norvasc 5mg daily, hold diuretics #?CAD - Patient reports was told he had CO; was Rx ASA and ticagrelor - will hold in setting of bleeding and possible renal bx -Will make 2nd attempt to get collateral information from [facility] #PSA (heroine, cocaine)- completed detox, monitor for withdrawal signs -d/w patient about returning to [facility] for rehab #FEN - NS@75cc / lytes wnl / Renal diet diet #DVT PPX - encourage ambulation DISPO: continue m/s FULL code d/w Dr. Shea Merlos MD PGY1 - Internal Medicine Visit type - Emergency Visit Emergency Visit: No - New Patient This patient is new to me today: No - Critical Care Critical Care patient: No
[2017-11-02 09:00] LABS: HEMATOCRIT 29.5 % (35.4-49); HEMOGLOBIN 9.5 GM/dL (11.7-16.9); MCH 27.9 pg (25.7-33.7); MCHC 32.2 g/dl (32.0-35.9); MEAN CELL VOLUME 86.6 fl (80-96); PLATELET COUNT 171 K/MM3 (134-434); RBC 3.41 M/mm3 (4.00-5.60); RDW 15.9 % (11.9-15.9); WHITE BLOOD COUNT 8.8 K/mm3 (4.0-10.0)
[2017-11-02 09:28] LABS: ANION GAP 8 (8-16); BLOOD UREA NITROGEN 72 mg/dL (7-18); CALCIUM 7.9 mg/dL (8.5-10.1); CHLORIDE 102 mmol/L (98-107); CO2 29 mmol/L (21-32); CREATININE 5.2 mg/dL (0.7-1.3); GLUCOSE,RANDOM 93 mg/dL (74-106); POTASSIUM 3.9 mmol/L (3.5-5.1); SODIUM 139 mmol/L (136-145)
[2017-11-02] MEDS: LACTULOSE 20 GM/30 ML UDC (FOR ORAL USE ONLY) PO SCH ×2 (09:53→22:14)
[2017-11-02] MEDS: SENNOSIDES/DOCUSATE COMBO (SENNA PLUS) TABLET (UD) PO SCH ×2 (09:53→22:15)
[2017-11-02] MEDS: RANOLAZINE E.R. 500 MG TABLET (FP) PO SCH ×2 (09:53→22:15)
[2017-11-02] MEDS: amLODIPine BESYLATE 5 MG TABLET (FP) PO SCH (09:53)
[2017-11-02] MEDS: SODIUM CHLORIDE 1,000 ML IV SCH (12:00)
--- NOTE | 2017-11-02 12:27 | PN ---
Teaching Attending Note Name of Resident: Hanna Merlos ATTENDING PHYSICIAN STATEMENT I saw and evaluated the patient. I reviewed the resident's note and discussed the case with the resident. I agree with the resident's findings and plan as documented. SUBJECTIVE: No fever or chills , refused his laxatives and his blood work in am . cont to see blood when he wipes himself, but no best bleeding OBJECTIVE: NAD , AAOX3. MMM CV: RRR, no MRG , No JVD Lungs: CTAB Abd: soft, NT, ND , NL BS Ext: no edema ASSESSMENT AND PLAN: 52 y/o man with h/o polysubstance abuse , HTN, diastolic heart failure , and recent diagnosis of CKD 5, who presented from [facility] with rectal bleed in the setting of constipation. 1- Fecal impaction: due to opioids use - refused his laxatives this am, counseled about need to comply with treatment - cont bowel regimen. - Hb slightly dropped , but no best bleed and on IVf 2- CKD 5, recent diagnosis x 6 months. No clear details. No bx done in past. was started on lasix in [facility] - no nephrotic range proteinuria as per protein /cr ratio - UPEP and SPEP pending, and other vasculitidis w/u pending - Cont IVF as he responded - Appreciate renal help 3- H/o Diastolic CHF , no volume overload. some of meds confirmed with pharmacy. - Dc'd all BB and started norvasc due to cocaine use 4 HTN: norvasc 5-He denies CAD, but after calling pharmacy, brilinta was prescribed to him. No aspirin any way, will hold due to minimal rectal bleed 5- Oipioid abuse: finished detox. monitor HLOC
[2017-11-02] MEDS ORDERED: MINERAL OIL ENEMA 133 ML ENEMA PR ONE (15:00)
--- NOTE | 2017-11-02 15:12 | PN ---
Progress Note, Physician History of Present Illness: Pt seen and examined at bedside. He denies shortness of breath. He denies lower ext edema. He denies dysuria or hematuria. - Current Medication List Current Medications: Active Medications Amlodipine Besylate (Norvasc -) 5 mg PO DAILY [facility] Last Admin: 11/02/17 09:53 Dose: 5 mg Atorvastatin Calcium (Lipitor -) 40 mg PO HS [facility] Last Admin: 11/01/17 22:41 Dose: 40 mg Doxazosin Mesylate (Cardura -) 2 mg PO HS [facility] Last Admin: 11/01/17 22:40 Dose: 2 mg Sodium Chloride (Normal Saline -) 1,000 mls @ 75 mls/hr IV ASDIR [facility] Last Admin: 11/02/17 12:00 Dose: 75 mls/hr Lactulose (Cephulac (Oral Use)) 20 gm PO BID [facility] Last Admin: 11/02/17 09:53 Dose: 20 gm Polyethylene Glycol (Miralax (For Daily Use) -) 17 gm PO TID [facility] Last Admin: 11/02/17 14:24 Dose: 17 gm Ranolazine (Ranexa -) 500 mg PO BID [facility] Last Admin: 11/02/17 09:53 Dose: 500 mg Senna/Docusate Sodium (Pericolace -) 1 tablet PO BID [facility] Last Admin: 11/02/17 09:53 Dose: 1 tablet - Objective Vital Signs: Vital Signs Temperature 98.9 F 11/02/17 09:52 Pulse Rate 80 11/02/17 09:52 Respiratory Rate 20 11/02/17 09:52 Blood Pressure 136/90 11/02/17 09:52 O2 Sat by Pulse Oximetry (%) 100 11/01/17 21:00 Constitutional: Yes: Calm Eyes: Yes: Conjunctiva Clear HENT: Yes: Atraumatic Neck: Yes: Supple Cardiovascular: Yes: S1, S2 Respiratory: Yes: CTA Bilaterally Gastrointestinal: Yes: Soft ...Rectal Exam: Yes: WNL Musculoskeletal: Yes: WNL Extremities: Yes: WNL Edema: No Neurological: Yes: Oriented Psychiatric: Yes: Oriented Labs: CBC, BMP 11/02/17 07:45 11/02/17 07:45 INR, PTT INR 1.11 (0.82-1.09) 10/31/17 07:30 Problem List - Problems (1) CAD (coronary artery disease) Code(s): I25.10 - ATHSCL HEART DISEASE OF [place] CORONARY ARTERY W/O ANG PCTRS Qualifiers: Coronary Disease-Associated Artery/Lesion type: [place] artery [place] vs. transplanted heart: [place] heart Associated angina: angina presence unspecified Qualified Code(s): I25.10 - Atherosclerotic heart disease of [place] coronary artery without angina pectoris (2) Constipation Code(s): K59.00 - CONSTIPATION, UNSPECIFIED Qualifiers: Constipation type: unspecified constipation type Qualified Code(s): K59.00 - Constipation, unspecified (3) ANUEL (acute kidney injury) Code(s): N17.9 - ACUTE KIDNEY FAILURE, UNSPECIFIED (4) CHF (congestive heart failure) Code(s): I50.9 - HEART FAILURE, UNSPECIFIED Qualifiers: Congestive heart failure type: diastolic Congestive heart failure chronicity: chronic Qualified Code(s): I50.32 - Chronic diastolic (congestive ) heart failure (5) Cocaine dependence Code(s): F14.20 - COCAINE DEPENDENCE, UNCOMPLICATED Qualifiers: Substance use status: with unspecified cocaine-induced disorder Qualified Code(s): F14.29 - Cocaine dependence with unspecified cocaine-induced disorder (6) Hypertension Code(s): I10 - ESSENTIAL (PRIMARY) HYPERTENSION Qualifiers: Hypertension type: essential hypertension Qualified Code(s): I10 - Essential (primary) hypertension (7) Mood disorder Code(s): F39 - UNSPECIFIED MOOD [AFFECTIVE] DISORDER (8) Nicotine dependence Code(s): F17.200 - NICOTINE DEPENDENCE, UNSPECIFIED, UNCOMPLICATED Qualifiers: Nicotine product type: cigarettes Substance use status: in withdrawal Qualified Code(s): F17.213 - Nicotine dependence, cigarettes, with withdrawal (9) Opioid dependence Code(s): F11.20 - OPIOID DEPENDENCE, UNCOMPLICATED (10) Hyperlipidemia Code(s): E78.5 - HYPERLIPIDEMIA, UNSPECIFIED Qualifiers: Hyperlipidemia type: pure hypercholesterolemia Qualified Code(s): E78.00 - Pure hypercholesterolemia, unspecified; E78.0 - Pure hypercholesterolemia Assessment/Plan Current Medications Generic Name Dose Route Start Last Admin Trade Name Freq PRN Reason Stop Dose Admin Amlodipine Besylate 5 mg 11/01/17 10:00 11/02/17 09:53 Norvasc - PO 5 mg DAILY [facility] Administration Atorvastatin Calcium 40 mg 12/30/17 11:55 11/01/17 22:41 Lipitor - PO 40 mg HS DEBBIE Administration Doxazosin Mesylate 2 mg 10/30/17 22:00 11/01/17 22:40 Cardura - PO 2 mg HS DEBBIE Administration Sodium Chloride 1,000 mls @ 75 mls/hr 10/31/17 12:00 11/02/17 12:00 Normal Saline - IV 75 mls/hr ASDIR DEBBIE Administration Lactulose 20 gm 10/31/17 22:00 11/02/17 09:53 Cephulac (Oral Use) PO 20 gm BID DEBBIE Administration Polyethylene Glycol 17 gm 10/30/17 16:15 11/02/17 14:24 Miralax (For Daily Use) - PO 17 gm TID DEBBIE Administration Ranolazine 500 mg 10/30/17 10:00 11/02/17 09:53 Ranexa - PO 500 mg BID DEBBIE Administration Senna/Docusate Sodium 1 tablet 10/30/17 13:30 11/02/17 09:53 Pericolace - PO 1 tablet BID DEBBIE Administration Laboratory Tests 10/30/17 10/30/17 10/30/17 18:00 18:00 19:30 Creatinine WILLIAM M-Andrei Pending U Random WILLIAM M-Andrei % Pending SHERICE Screen Pending c-ANCA Pending Proteinase 3 (PR3) Pending p-ANCA Pending Atypical p-ANCA Pending Myeloperoxidase Ab Pending Double Strand DNA Ab Pending Complement C3 Complement C4 Hepatitis A Ab Total Negative Hep Bs Antigen Negative Hep Bs Antibody Non reactive HIV 1&2 Antibody Screen Negative HIV P24 Antigen Negative 10/31/17 10/31/17 11/01/17 07:30 07:30 06:45 Creatinine 6.1 H 5.8 H WILLIAM M-Andrei U Random WILLIAM M-Andrei % SHERICE Screen c-ANCA Proteinase 3 (PR3) p-ANCA Atypical p-ANCA Myeloperoxidase Ab Double Strand DNA Ab Complement C3 Pending Complement C4 Pending Hepatitis A Ab Total Hep Bs Antigen Hep Bs Antibody HIV 1&2 Antibody Screen HIV P24 Antigen 11/02/17 07:45 Creatinine 5.2 H WILLIAM M-Andrei U Random WILLIAM M-Andrei % SHERICE Screen c-ANCA Proteinase 3 (PR3) p-ANCA Atypical p-ANCA Myeloperoxidase Ab Double Strand DNA Ab Complement C3 Complement C4 Hepatitis A Ab Total Hep Bs Antigen Hep Bs Antibody HIV 1&2 Antibody Screen HIV P24 Antigen Impression 1. ANUEL 2. heroin use 3. HTN 4. hx CKD 5. constipation Plan - cont with fluids - renal function is improving - repeat labs in a - renal workup is in progress - discussed plan with pt - will follow Dr Bunn
[2017-11-02] MEDS: DOXAZOSIN MESYLATE 2 MG TABLET (FP) PO SCH (22:14)
[2017-11-02] MEDS: ATORVASTATIN CA 80 MG TABLET (FP) PO SCH (22:14)
[2017-11-03] MEDS: POLYETHYLENE GLYCOL 3350 119 GM BTL PO SCH ×4 (06:03→22:35)
--- NOTE | 2017-11-03 06:52 | PN ---
Physical Exam: SUBJECTIVE: Patient seen and examined. Had enema yesterday, some BM yesterday + flatus, but still straining with BM. No fever, chills, or abdominal pain. OBJECTIVE: Vital Signs Period Temp Pulse Resp BP Sys/Schwartz Pulse Ox Last 24 Hr 98.1 F-98.9 F 80-91 20-22 136-154/75-97 99-100 GENERAL: aaox3, nad EYES: sclera anicteric, conjunctiva clear ENT: MMM LUNGS: CTAB HEART: rrr, normal s1/s2, no m/r/g, (-) JVD ABDOMEN: Soft, non-distended, mild discomfort in LLQ EXTREMITIES: 2+ DP pulses, wwp, no edema AURELIO: retained stool rectum, softer than yesterday CBC, BMP 11/03/17 06:30 11/03/17 06:30 Hepatic Panel Total Bilirubin 0.4 mg/dL (0.2-1.0) 11/03/17 06:30 AST 17 U/L (15-37) D 11/03/17 06:30 ALT 15 U/L (12-78) D 11/03/17 06:30 Alkaline Phosphatase 51 U/L (45-117) 11/03/17 06:30 Albumin 2.3 g/dl (3.4-5.0) L 11/03/17 06:30 Active Medications Amlodipine Besylate (Norvasc -) 10 mg PO DAILY [facility] Atorvastatin Calcium (Lipitor -) 40 mg PO HS [facility] Last Admin: 11/02/17 22:14 Dose: 40 mg Doxazosin Mesylate (Cardura -) 2 mg PO HS [facility] Last Admin: 11/02/17 22:14 Dose: 2 mg Sodium Chloride (1/2 Normal Saline) 1,000 mls @ 70 mls/hr IV ASDIR [facility] Last Admin: 11/03/17 18:00 Dose: 70 mls/hr Lactulose (Cephulac (Oral Use)) 20 gm PO BID [facility] Last Admin: 11/03/17 15:47 Dose: 20 gm Polyethylene Glycol (Miralax (For Daily Use) -) 17 gm PO TID [facility] Last Admin: 11/03/17 15:48 Dose: 17 gm Ranolazine (Ranexa -) 500 mg PO BID [facility] Last Admin: 11/03/17 11:00 Dose: 500 mg Senna/Docusate Sodium (Pericolace -) 1 tablet PO BID [facility] Last Admin: 11/03/17 15:48 Dose: 1 tablet ASSESSMENT/PLAN: 52yo man with PMH of PSA (heroine, cocaine), HTN, diastolic CHF, recent dx of CKD stage 5 who was sent over from [facility] rehab after completing detox for constipation c/b rectal bleeding. #fecal retention likely due to narcotics, CT AP revealed thickened rectal wall, guaiac+ stool -Retained stool in rectum, softer than yesterday - Continue with Pericolice BID , Lactulose 20mg BID, Miralax TID -Added Prune juice with meals -Will consider 2nd enema tomorrow if no significant BM overnight -GI consult for possible c-scope vs sigmoidoscopy. #CKD stage 5, Cr improving, work-up for etiology in progress -continue IVFs -Renal following. d/w Renal and pt likely need for kidney biopsy; need to wait 7days since last ASA -f/u extensive lab work-up #diastolic CHF - no e/o overload -Norvasc increased to 10mg daily, hold diuretics -No BB due to cocaine use #?CAD - Patient reports was told he had AR; was Rx ASA and ticagrelor - will hold in setting of bleeding and possible renal bx #PSA (heroine, cocaine)- completed detox, monitor for withdrawal signs -d/w patient about returning to [facility] for rehab #FEN - 1/2NS@70cc / lytes wnl / Renal diet diet #DVT PPX - encourage ambulation DISPO: continue m/s FULL code d/w Dr. Shea Merlos MD PGY1 - Internal Medicine Visit type - Emergency Visit Emergency Visit: No - New Patient This patient is new to me today: No - Critical Care Critical Care patient: No
[2017-11-03] MEDS: SODIUM CHLORIDE 1,000 ML IV SCH (08:04)
[2017-11-03 08:30] LABS: HEMATOCRIT 28.8 % (35.4-49); HEMOGLOBIN 9.2 GM/dL (11.7-16.9); MCH 27.7 pg (25.7-33.7); MCHC 31.9 g/dl (32.0-35.9); MEAN CELL VOLUME 86.9 fl (80-96); MEAN PLT VOLUME 8.3 fl (7.5-11.1); PLATELET COUNT 158 K/MM3 (134-434); RBC 3.31 M/mm3 (4.00-5.60); RDW 15.8 % (11.9-15.9); WHITE BLOOD COUNT 7.5 K/mm3 (4.0-10.0)
[2017-11-03 08:51] LABS: ALBUMIN 2.3 g/dl (3.4-5.0); ANION GAP 12 (8-16); BILIRUBIN,TOTAL 0.4 mg/dL (0.2-1.0); BLOOD UREA NITROGEN 56 mg/dL (7-18); CALCIUM 8.3 mg/dL (8.5-10.1); CHLORIDE 103 mmol/L (98-107); CO2 25 mmol/L (21-32); CREATININE 4.6 mg/dL (0.7-1.3); GLUCOSE,RANDOM 82 mg/dL (74-106); POTASSIUM 3.7 mmol/L (3.5-5.1); SGOT/AST 17 U/L (15-37); SGPT/ALT 15 U/L (12-78); SODIUM 140 mmol/L (136-145)
[2017-11-03 08:52] LABS: ALK PHOS 51 U/L (45-117); TOT PROT 6.7 g/dl (6.4-8.2)
[2017-11-03] MEDS: amLODIPine BESYLATE 5 MG TABLET (FP) PO SCH (11:00)
[2017-11-03] MEDS: RANOLAZINE E.R. 500 MG TABLET (FP) PO SCH ×2 (11:00→22:33)
[2017-11-03] MEDS: LACTULOSE 20 GM/30 ML UDC (FOR ORAL USE ONLY) PO SCH ×3 (11:00→22:33)
[2017-11-03] MEDS: SENNOSIDES/DOCUSATE COMBO (SENNA PLUS) TABLET (UD) PO SCH ×3 (11:00→22:35)
--- NOTE | 2017-11-03 16:32 | PN ---
Progress Note, Physician History of Present Illness: Pt seen and examined at bedside. He denies shortness of breath. - Current Medication List Current Medications: Active Medications Amlodipine Besylate (Norvasc -) 5 mg PO DAILY [facility] Last Admin: 11/03/17 11:00 Dose: 5 mg Atorvastatin Calcium (Lipitor -) 40 mg PO HS [facility] Last Admin: 11/02/17 22:14 Dose: 40 mg Doxazosin Mesylate (Cardura -) 2 mg PO HS [facility] Last Admin: 11/02/17 22:14 Dose: 2 mg Sodium Chloride (Normal Saline -) 1,000 mls @ 75 mls/hr IV ASDIR [facility] Last Admin: 11/03/17 08:04 Dose: 75 mls/hr Lactulose (Cephulac (Oral Use)) 20 gm PO BID [facility] Last Admin: 11/03/17 15:47 Dose: 20 gm Polyethylene Glycol (Miralax (For Daily Use) -) 17 gm PO TID [facility] Last Admin: 11/03/17 15:48 Dose: 17 gm Ranolazine (Ranexa -) 500 mg PO BID [facility] Last Admin: 11/03/17 11:00 Dose: 500 mg Senna/Docusate Sodium (Pericolace -) 1 tablet PO BID [facility] Last Admin: 11/03/17 15:48 Dose: 1 tablet - Objective Vital Signs: Vital Signs Temperature 98.2 F 11/03/17 14:35 Pulse Rate 89 11/03/17 15:56 Respiratory Rate 20 11/03/17 15:56 Blood Pressure 143/91 11/03/17 15:56 O2 Sat by Pulse Oximetry (%) 100 11/03/17 11:00 Constitutional: Yes: Calm Eyes: Yes: Conjunctiva Clear HENT: Yes: Atraumatic Neck: Yes: Supple Cardiovascular: Yes: S1, S2 Respiratory: Yes: CTA Bilaterally Gastrointestinal: Yes: Normal Bowel Sounds, Soft Genitourinary: Yes: WNL Musculoskeletal: Yes: WNL Edema: No Neurological: Yes: Oriented Psychiatric: Yes: Oriented Labs: CBC, BMP 11/03/17 06:30 11/03/17 06:30 INR, PTT INR 1.11 (0.82-1.09) 10/31/17 07:30 Problem List - Problems (1) CAD (coronary artery disease) Code(s): I25.10 - ATHSCL HEART DISEASE OF [place] CORONARY ARTERY W/O ANG PCTRS Qualifiers: Coronary Disease-Associated Artery/Lesion type: [place] artery [place] vs. transplanted heart: [place] heart Associated angina: angina presence unspecified Qualified Code(s): I25.10 - Atherosclerotic heart disease of [place] coronary artery without angina pectoris (2) Constipation Code(s): K59.00 - CONSTIPATION, UNSPECIFIED Qualifiers: Constipation type: unspecified constipation type Qualified Code(s): K59.00 - Constipation, unspecified (3) ANUEL (acute kidney injury) Code(s): N17.9 - ACUTE KIDNEY FAILURE, UNSPECIFIED (4) CHF (congestive heart failure) Code(s): I50.9 - HEART FAILURE, UNSPECIFIED Qualifiers: Congestive heart failure type: diastolic Congestive heart failure chronicity: chronic Qualified Code(s): I50.32 - Chronic diastolic (congestive ) heart failure (5) Cocaine dependence Code(s): F14.20 - COCAINE DEPENDENCE, UNCOMPLICATED Qualifiers: Substance use status: with unspecified cocaine-induced disorder Qualified Code(s): F14.29 - Cocaine dependence with unspecified cocaine-induced disorder (6) Hypertension Code(s): I10 - ESSENTIAL (PRIMARY) HYPERTENSION Qualifiers: Hypertension type: essential hypertension Qualified Code(s): I10 - Essential (primary) hypertension (7) Mood disorder Code(s): F39 - UNSPECIFIED MOOD [AFFECTIVE] DISORDER (8) Nicotine dependence Code(s): F17.200 - NICOTINE DEPENDENCE, UNSPECIFIED, UNCOMPLICATED Qualifiers: Nicotine product type: cigarettes Substance use status: in withdrawal Qualified Code(s): F17.213 - Nicotine dependence, cigarettes, with withdrawal (9) Opioid dependence Code(s): F11.20 - OPIOID DEPENDENCE, UNCOMPLICATED (10) Hyperlipidemia Code(s): E78.5 - HYPERLIPIDEMIA, UNSPECIFIED Qualifiers: Hyperlipidemia type: pure hypercholesterolemia Qualified Code(s): E78.00 - Pure hypercholesterolemia, unspecified; E78.0 - Pure hypercholesterolemia Assessment/Plan Current Medications Generic Name Dose Route Start Last Admin Trade Name Freq PRN Reason Stop Dose Admin Amlodipine Besylate 5 mg 11/01/17 10:00 11/03/17 11:00 Norvasc - PO 5 mg DAILY DEBBIE Administration Atorvastatin Calcium 40 mg 10/31/17 11:55 11/02/17 22:14 Lipitor - PO 40 mg HS DEBBIE Administration Doxazosin Mesylate 2 mg 10/30/17 22:00 11/02/17 22:14 Cardura - PO 2 mg HS DEBBIE Administration Sodium Chloride 1,000 mls @ 75 mls/hr 10/31/17 12:00 11/03/17 08:04 Normal Saline - IV 75 mls/hr ASDIR DEBBIE Administration Lactulose 20 gm 10/31/17 22:00 11/03/17 15:47 Cephulac (Oral Use) PO 20 gm BID DEBBIE Administration Polyethylene Glycol 17 gm 10/30/17 16:15 11/03/17 15:48 Miralax (For Daily Use) - PO 17 gm TID DEBBIE Administration Ranolazine 500 mg 10/30/17 10:00 11/03/17 11:00 Ranexa - PO 500 mg BID DEBBIE Administration Senna/Docusate Sodium 1 tablet 10/30/17 13:30 11/03/17 15:48 Pericolace - PO 1 tablet BID DEBBIE Administration Laboratory Tests 10/30/17 10/30/17 18:00 18:00 Double Strand DNA Ab <1 Hep Bs Antigen Negative Hep Bs Antibody Non reactive Hep B Core Total Ab Negative Hepatitis C Antibody <0.1 Impression 1. ANUEL 2. heroin use 3. HTN 4. hx CKD 5. constipation Plan - change fluids to 1/2 ns - repeat labs in am - will decrease rate - repeat bp - renal workup is in progress - discussed plan with pt - will follow Dr Bunn
[2017-11-03] MEDS: SODIUM CHLORIDE 0.45% 1,000 ML IV SCH (18:00)
[2017-11-03] MEDS ORDERED: amLODIPine BESYLATE 5 MG TABLET (FP) PO ONE (18:30)
--- NOTE | 2017-11-03 18:46 | PN ---
Teaching Attending Note Name of Resident: Hanna Merlos ATTENDING PHYSICIAN STATEMENT I saw and evaluated the patient. I reviewed the resident's note and discussed the case with the resident. I agree with the resident's findings and plan as documented. SUBJECTIVE: Abd pain improved , has no fever or chills.still reports the need to strain with defecation. OBJECTIVE: NAD , AAOX3. MMM CV: RRR, no MRG, No JVD Lungs: CTAB Abd: soft, NT, ND , NL BS Ext: no edema ASSESSMENT AND PLAN: 52 y/o man with h/o polysubstance abuse , HTN, diastolic heart failure , and recent diagnosis of CKD 5, who presented from [facility] with rectal bleed in the setting of constipation. 1- Fecal impaction: due to opioids use - rectal exam by resident cont to have stool mass in rectum, but softer than before - cont oral laxatives miralax , lactulose and senna/colace . if needed will give enema - will probably need colonoscopy or sigmoidoscopy . consult GI 2- CKD 5, recent diagnosis x 6 months. No clear details. No bx done in past. was started on lasix in [facility] - UPEP and SPEP pending, and other vasculitidis w/u pending - Cont IVF as he responded - Appreciate renal help 3- H/o Diastolic CHF , no volume overload. some of meds confirmed with pharmacy. - Dc'd all BB and started norvasc due to cocaine use - increase Norvasc 4 HTN: norvasc 5- Oipioid abuse: finished detox. monitor HLOC
[2017-11-03] MEDS: ATORVASTATIN CA 80 MG TABLET (FP) PO SCH (22:33)
[2017-11-03] MEDS: DOXAZOSIN MESYLATE 2 MG TABLET (FP) PO SCH (22:36)
[2017-11-04] MEDS: POLYETHYLENE GLYCOL 3350 119 GM BTL PO SCH ×4 (07:02→22:59)
[2017-11-04 07:34] LABS: HEMATOCRIT 30.6 % (35.4-49); HEMOGLOBIN 9.8 GM/dL (11.7-16.9); MCH 27.6 pg (25.7-33.7); MCHC 31.9 g/dl (32.0-35.9); MEAN CELL VOLUME 86.4 fl (80-96); MEAN PLT VOLUME 8.2 fl (7.5-11.1); PLATELET COUNT 179 K/MM3 (134-434); RBC 3.54 M/mm3 (4.00-5.60); RDW 16.1 % (11.9-15.9); WHITE BLOOD COUNT 7.8 K/mm3 (4.0-10.0)
[2017-11-04 08:05] LABS: ALBUMIN 2.5 g/dl (3.4-5.0); ANION GAP 10 (8-16); BILIRUBIN,TOTAL 0.3 mg/dL (0.2-1.0); BLOOD UREA NITROGEN 50 mg/dL (7-18); CALCIUM 8.4 mg/dL (8.5-10.1); CHLORIDE 103 mmol/L (98-107); CO2 26 mmol/L (21-32); CREATININE 4.4 mg/dL (0.7-1.3); GLUCOSE,RANDOM 78 mg/dL (74-106); POTASSIUM 3.8 mmol/L (3.5-5.1); SGOT/AST 18 U/L (15-37); SGPT/ALT 13 U/L (12-78); SODIUM 139 mmol/L (136-145)
--- NOTE | 2017-11-04 08:05 | PN ---
Physical Exam: SUBJECTIVE: Patient seen and examined. Had several BM last night. Still straining with defecation, but reports less than yesterday. No nausea, vomiting , fever, or chills. Eating and voiding well. OBJECTIVE: Vital Signs Period Temp Pulse Resp BP Sys/Schwartz Pulse Ox Last 24 Hr 97.8 F-98.9 F 84-103 20-30 135-159/11-107 100-100 GENERAL: aaox3, nad EYES: sclera anicteric, conjunctiva clear ENT: MMM LUNGS: CTAB HEART: rrr, normal s1/s2, no m/r/g, (-) JVD ABDOMEN: Soft, ntnd, normoactive BS EXTREMITIES: 2+ DP pulses, wwp, no edema CBC, BMP 11/04/17 07:00 11/04/17 07:00 Hepatic Panel Total Bilirubin 0.3 mg/dL (0.2-1.0) D 11/04/17 07:00 AST 18 U/L (15-37) 11/04/17 07:00 ALT 13 U/L (12-78) 11/04/17 07:00 Alkaline Phosphatase 53 U/L (45-117) 11/04/17 07:00 Albumin 2.5 g/dl (3.4-5.0) L 11/04/17 07:00 Active Medications Amlodipine Besylate (Norvasc -) 10 mg PO DAILY [facility] Last Admin: 11/04/17 09:55 Dose: 10 mg Atorvastatin Calcium (Lipitor -) 40 mg PO HS [facility] Last Admin: 11/03/17 22:33 Dose: 40 mg Doxazosin Mesylate (Cardura -) 2 mg PO HS [facility] Last Admin: 11/03/17 22:36 Dose: 2 mg Sodium Chloride (1/2 Normal Saline) 1,000 mls @ 70 mls/hr IV ASDIR [facility] Last Admin: 11/03/17 18:00 Dose: 70 mls/hr Lactulose (Cephulac (Oral Use)) 20 gm PO BID [facility] Last Admin: 11/04/17 09:55 Dose: 20 gm Polyethylene Glycol (Miralax (For Daily Use) -) 17 gm PO TID [facility] Last Admin: 11/04/17 10:02 Dose: 17 gm Ranolazine (Ranexa -) 500 mg PO BID [facility] Last Admin: 11/04/17 09:54 Dose: 500 mg Senna/Docusate Sodium (Pericolace -) 1 tablet PO BID [facility] Last Admin: 11/04/17 09:55 Dose: 1 tablet ASSESSMENT/PLAN: 52yo man with PMH of PSA (heroine, cocaine), HTN, diastolic CHF, recent dx of CKD stage 5 who was sent over from [facility] rehab after completing detox for constipation c/b rectal bleeding. #fecal retention likely due to narcotics, CT AP revealed thickened rectal wall, guaiac+ stool -GI consulted - planning for colonoscopy tomorrow -Continue bowel regiment today with Pericolice BID, Lactulose 20mg BID, Miralax TID and prune juice #CKD stage 5, Cr improving, work-up for etiology in progress -continue IVFs -Renal following. Likely will need bx. -f/u extensive lab work-up - thus far SHERICE neg, C3/C4 wnl, hepatitis panel negative #diastolic CHF - no e/o overload -Norvasc increased to 10mg daily -No BB due to cocaine use #?CAD - Patient reports was told he had HI; was Rx ASA and ticagrelor - will hold in setting of bleeding and possible renal bx #PSA (heroine, cocaine)- completed detox, monitor for withdrawal signs -d/w patient about returning to [facility] for rehab #FEN - 1/2NS@70cc / lytes wnl / Clear lq today, NPO after midnight for c-scope tomorrow #DVT PPX - encourage ambulation DISPO: continue m/s FULL code d/w Dr. Rosita Merlos MD PGY1 - Internal Medicine Visit type - Emergency Visit Emergency Visit: No - New Patient This patient is new to me today: No - Critical Care Critical Care patient: No
[2017-11-04 08:06] LABS: ALK PHOS 53 U/L (45-117); TOT PROT 7.2 g/dl (6.4-8.2)
[2017-11-04] MEDS: RANOLAZINE E.R. 500 MG TABLET (FP) PO SCH ×2 (09:54→22:59)
[2017-11-04] MEDS: LACTULOSE 20 GM/30 ML UDC (FOR ORAL USE ONLY) PO SCH ×2 (09:55→22:59)
[2017-11-04] MEDS: amLODIPine BESYLATE 5 MG TABLET (FP) PO SCH (09:55)
[2017-11-04] MEDS: SENNOSIDES/DOCUSATE COMBO (SENNA PLUS) TABLET (UD) PO SCH ×2 (09:55→22:59)
--- NOTE | 2017-11-04 10:09 | CON.GI ---
Consult Consult Specialty:: GI - History of Present Illness History of Present Illness: 52 y/o man with h/o polysubstance abuse , HTN, diastolic heart failure , and recent diagnosis of CKD 5, who presented from [facility] with rectal bleed in the setting of constipation. Small amounts, bright-red blood, nt mixed with stools, on/off with bms. Never had colonoscopy. Reports no significant weight loss, abdominal pain, nausea, vomiting, dysphagia, odynophagia, dyspepisa. Family hx non-contributory. - History Source History Provided By: Patient, Medical Record - Alcohol/Substance Use Hx Alcohol Use: No - Smoking History Smoking history: Current every day smoker Have you smoked in the past 12 months: No Aproximately how many cigarettes per day: 5 Home Medications - Allergies Allergies/Adverse Reactions: Allergies Allergy/AdvReac Type Severity Reaction Status Date / Time Pork/Porcine Containing Allergy Unknown Verified 10/29/17 14:07 Products [Pork/Porcine Product Derivatives] - Home Medications Home Medications: Ambulatory Orders Metoprolol Tartrate [Lopressor -] 100 mg PO DAILY #0 tablet 11/27/11 Aspirin [ASA -] 81 mg PO DAILY 10/21/17 Atorvastatin Ca [Lipitor] 80 mg PO HS 10/21/17 Carvedilol [Coreg -] 6.25 mg PO DAILY 10/21/17 Clopidogrel Bisulfate [Plavix -] 75 mg PO DAILY 10/21/17 Doxazosin Mesylate [Cardura -] 2 mg PO HS 10/21/17 Furosemide [Lasix -] 40 mg PO DAILY 10/21/17 Ranolazine [Ranexa] 500 mg PO BID 10/21/17 Ticagrelor [Brilinta -] 90 mg PO BID 10/21/17 Family Disease History - Family Disease History Family Disease History: Heart Disease: Father (), Sister (), [place] : Mother, Other: Father, Brother (), Sister Review of Systems Findings/Remarks: please refer to H&P, and HPI Physical Exam-GI Vital Signs: Vital Signs Temperature 98.7 F 11/04/17 09:54 Pulse Rate 88 11/04/17 09:54 Respiratory Rate 20 11/04/17 09:54 Blood Pressure 164/107 11/04/17 09:54 O2 Sat by Pulse Oximetry (%) 100 11/03/17 21:00 Constitutional: Yes: No Distress, Calm Eyes: Yes: Conjunctiva Clear HENT: Yes: Atraumatic Neck: Yes: Supple Cardiovascular: Yes: Regular Rate and Rhythm Respiratory: Yes: Regular ...Auscultate: Yes: Normoactive Bowel Sounds ...Palpate: Yes: Soft. No: Firm/Rigid, Guarding, Mass, Tenderness, Tenderness, Epigastium, Tenderness, Rebound ...Percussion: No: Fluid Wave Neurological: Yes: Alert, Oriented Labs: CBC, BMP 11/04/17 07:00 11/04/17 07:00 INR, PTT INR 1.11 (0.82-1.09) 10/31/17 07:30 Laboratory Results - last 24 hr 10/30/17 10/31/17 11/04/17 18:00 07:30 07:00 WBC 7.8 RBC 3.54 L Hgb 9.8 L Hct 30.6 L MCV 86.4 MCH 27.6 MCHC 31.9 L RDW 16.1 H Plt Count 179 MPV 8.2 Sodium Potassium Chloride Carbon Dioxide Anion Gap BUN Creatinine Creat Clearance w eGFR Random Glucose Calcium Total Bilirubin AST ALT Alkaline Phosphatase Total Protein Albumin SHERICE Screen Negative Double Strand DNA Ab <1 Complement C3 115 Complement C4 31 11/04/17 07:00 WBC RBC Hgb Hct MCV MCH MCHC RDW Plt Count MPV Sodium 139 Potassium 3.8 Chloride 103 Carbon Dioxide 26 Anion Gap 10 BUN 50 H Creatinine 4.4 H Creat Clearance w eGFR 14.09 Random Glucose 78 Calcium 8.4 L Total Bilirubin 0.3 D AST 18 ALT 13 Alkaline Phosphatase 53 Total Protein 7.2 Albumin 2.5 L SHERICE Screen Double Strand DNA Ab Complement C3 Complement C4 Imaging - Results Cat Scan: Report Reviewed (?stercoral colitis?) Problem List - Problems (1) Stercoral ulcer of large intestine Code(s): K63.3 - ULCER OF INTESTINE (2) Hematochezia Code(s): K92.1 - MELENA Assessment/Plan Agree with aggressive bowel regiment. Plan colonoscopy discussed with the patient
[2017-11-04] MEDS ORDERED: BISACODYL 5 MG TABLET.DR (FP) PO ONE (10:10)
[2017-11-04] MEDS ORDERED: PEG 3350/NA SULF BICARB CL/KCL 4000 ML SOLN.RECON PO ONE (10:10)
--- NOTE | 2017-11-04 15:31 | PN ---
Progress Note, Physician History of Present Illness: Pt seen and examined at bedside. He is awake and alert. He denies shortness of breath. - Current Medication List Current Medications: Active Medications Amlodipine Besylate (Norvasc -) 10 mg PO DAILY [facility] Last Admin: 11/04/17 09:55 Dose: 10 mg Atorvastatin Calcium (Lipitor -) 40 mg PO HS [facility] Last Admin: 11/03/17 22:33 Dose: 40 mg Doxazosin Mesylate (Cardura -) 2 mg PO HS [facility] Last Admin: 11/03/17 22:36 Dose: 2 mg Sodium Chloride (1/2 Normal Saline) 1,000 mls @ 70 mls/hr IV ASDIR [facility] Last Admin: 11/03/17 18:00 Dose: 70 mls/hr Lactulose (Cephulac (Oral Use)) 20 gm PO BID [facility] Last Admin: 11/04/17 09:55 Dose: 20 gm Polyethylene Glycol (Miralax (For Daily Use) -) 17 gm PO TID [facility] Last Admin: 11/04/17 10:02 Dose: 17 gm Ranolazine (Ranexa -) 500 mg PO BID [facility] Last Admin: 11/04/17 09:54 Dose: 500 mg Senna/Docusate Sodium (Pericolace -) 1 tablet PO BID [facility] Last Admin: 11/04/17 09:55 Dose: 1 tablet - Objective Vital Signs: Vital Signs Temperature 98.1 F 11/04/17 14:08 Pulse Rate 82 11/04/17 14:08 Respiratory Rate 20 11/04/17 14:08 Blood Pressure 147/92 11/04/17 14:08 O2 Sat by Pulse Oximetry (%) 100 11/03/17 21:00 Constitutional: Yes: Calm Eyes: Yes: Conjunctiva Clear HENT: Yes: Atraumatic Neck: Yes: Supple Cardiovascular: Yes: S1, S2 Respiratory: Yes: CTA Bilaterally Gastrointestinal: Yes: Normal Bowel Sounds, Soft Genitourinary: Yes: WNL Musculoskeletal: Yes: WNL Extremities: Yes: WNL Edema: No Neurological: Yes: Oriented Psychiatric: Yes: Oriented Labs: CBC, BMP 11/04/17 07:00 11/04/17 07:00 INR, PTT INR 1.11 (0.82-1.09) 10/31/17 07:30 Problem List - Problems (1) CAD (coronary artery disease) Code(s): I25.10 - ATHSCL HEART DISEASE OF [place] CORONARY ARTERY W/O ANG PCTRS Qualifiers: Coronary Disease-Associated Artery/Lesion type: [place] artery [place] vs. transplanted heart: [place] heart Associated angina: angina presence unspecified Qualified Code(s): I25.10 - Atherosclerotic heart disease of [place] coronary artery without angina pectoris (2) Constipation Code(s): K59.00 - CONSTIPATION, UNSPECIFIED Qualifiers: Constipation type: unspecified constipation type Qualified Code(s): K59.00 - Constipation, unspecified (3) ANUEL (acute kidney injury) Code(s): N17.9 - ACUTE KIDNEY FAILURE, UNSPECIFIED (4) CHF (congestive heart failure) Code(s): I50.9 - HEART FAILURE, UNSPECIFIED Qualifiers: Congestive heart failure type: diastolic Congestive heart failure chronicity: chronic Qualified Code(s): I50.32 - Chronic diastolic (congestive ) heart failure (5) Cocaine dependence Code(s): F14.20 - COCAINE DEPENDENCE, UNCOMPLICATED Qualifiers: Substance use status: with unspecified cocaine-induced disorder Qualified Code(s): F14.29 - Cocaine dependence with unspecified cocaine-induced disorder (6) Hypertension Code(s): I10 - ESSENTIAL (PRIMARY) HYPERTENSION Qualifiers: Hypertension type: essential hypertension Qualified Code(s): I10 - Essential (primary) hypertension (7) Mood disorder Code(s): F39 - UNSPECIFIED MOOD [AFFECTIVE] DISORDER (8) Nicotine dependence Code(s): F17.200 - NICOTINE DEPENDENCE, UNSPECIFIED, UNCOMPLICATED Qualifiers: Nicotine product type: cigarettes Substance use status: in withdrawal Qualified Code(s): F17.213 - Nicotine dependence, cigarettes, with withdrawal (9) Opioid dependence Code(s): F11.20 - OPIOID DEPENDENCE, UNCOMPLICATED (10) Hyperlipidemia Code(s): E78.5 - HYPERLIPIDEMIA, UNSPECIFIED Qualifiers: Hyperlipidemia type: pure hypercholesterolemia Qualified Code(s): E78.00 - Pure hypercholesterolemia, unspecified; E78.0 - Pure hypercholesterolemia Assessment/Plan Current Medications Generic Name Dose Route Start Last Admin Trade Name Freq PRN Reason Stop Dose Admin Amlodipine Besylate 10 mg 11/04/17 10:00 11/04/17 09:55 Norvasc - PO 10 mg DAILY DEBBIE Administration Atorvastatin Calcium 40 mg 10/31/17 11:55 11/03/17 22:33 Lipitor - PO 40 mg HS DEBBIE Administration Doxazosin Mesylate 2 mg 10/30/17 22:00 11/03/17 22:36 Cardura - PO 2 mg HS DEBBIE Administration Sodium Chloride 1,000 mls @ 70 mls/hr 11/03/17 16:45 11/03/17 18:00 1/2 Normal Saline IV 70 mls/hr ASDIR DEBBIE Administration Lactulose 20 gm 10/31/17 22:00 11/04/17 09:55 Cephulac (Oral Use) PO 20 gm BID DEBBIE Administration Polyethylene Glycol 17 gm 10/30/17 16:15 11/04/17 10:02 Miralax (For Daily Use) - PO 17 gm TID DEBBIE Administration Ranolazine 500 mg 10/30/17 10:00 11/04/17 09:54 Ranexa - PO 500 mg BID DEBBIE Administration Senna/Docusate Sodium 1 tablet 10/30/17 13:30 11/04/17 09:55 Pericolace - PO 1 tablet BID DEBBIE Administration Laboratory Tests 10/30/17 10/31/17 18:00 07:30 Double Strand DNA Ab <1 Complement C3 115 Complement C4 31 Impression 1. ANUEL 2. heroin use 3. HTN 4. hx CKD 5. constipation Plan - cont with fluids - repeat labs in am - renal workup is in progress - GI input appreciated - discussed plan with pt - will follow Dr Bunn
[2017-11-04 16:20] LABS: ALBUMIN % 42.6 % (.); ALPHA-1 FOR UPE 2.6 % (.); TOTAL PROTEIN, URINE 59.6 mg/dL (Not Estab.)
--- NOTE | 2017-11-04 18:55 | PN ---
Teaching Attending Note Name of Resident: Hanna Merlos ATTENDING PHYSICIAN STATEMENT I saw and evaluated the patient. I reviewed the resident's note and discussed the case with the resident. I agree with the resident's findings and plan as documented. SUBJECTIVE: Patient is c/o unable to go to the bathroom for BMs. OBJECTIVE: Vital Signs Temperature 98.1 F 11/04/17 14:08 Pulse Rate 82 11/04/17 14:08 Respiratory Rate 20 11/04/17 14:08 Blood Pressure 147/92 11/04/17 14:08 O2 Sat by Pulse Oximetry (%) 100 11/04/17 09:00 CBCD WBC 7.8 K/mm3 (4.0-10.0) 11/04/17 07:00 RBC 3.54 M/mm3 (4.00-5.60) L 11/04/17 07:00 Hgb 9.8 GM/dL (11.7-16.9) L 11/04/17 07:00 Hct 30.6 % (35.4-49) L 11/04/17 07:00 MCV 86.4 fl (80-96) 11/04/17 07:00 MCHC 31.9 g/dl (32.0-35.9) L 11/04/17 07:00 RDW 16.1 % (11.9-15.9) H 11/04/17 07:00 Plt Count 179 K/MM3 (134-434) 11/04/17 07:00 MPV 8.2 fl (7.5-11.1) 11/04/17 07:00 CMP Sodium 139 mmol/L (136-145) 11/04/17 07:00 Potassium 3.8 mmol/L (3.5-5.1) 11/04/17 07:00 Chloride 103 mmol/L (98-107) 11/04/17 07:00 Carbon Dioxide 26 mmol/L (21-32) 11/04/17 07:00 Anion Gap 10 (8-16) 11/04/17 07:00 BUN 50 mg/dL (7-18) H 11/04/17 07:00 Creatinine 4.4 mg/dL (0.7-1.3) H 11/04/17 07:00 Creat Clearance w eGFR 14.09 (>60) 11/04/17 07:00 Random Glucose 78 mg/dL (74-106) 11/04/17 07:00 Calcium 8.4 mg/dL (8.5-10.1) L 11/04/17 07:00 Total Bilirubin 0.3 mg/dL (0.2-1.0) D 11/04/17 07:00 AST 18 U/L (15-37) 11/04/17 07:00 ALT 13 U/L (12-78) 11/04/17 07:00 Alkaline Phosphatase 53 U/L (45-117) 11/04/17 07:00 Total Protein 7.2 g/dl (6.4-8.2) 11/04/17 07:00 Albumin 2.5 g/dl (3.4-5.0) L 11/04/17 07:00 Current Medications Generic Name Dose Route Start Last Admin Trade Name Freq PRN Reason Stop Dose Admin Amlodipine Besylate 10 mg 11/04/17 10:00 11/04/17 09:55 Norvasc - PO 10 mg DAILY DEBBIE Administration Atorvastatin Calcium 40 mg 10/31/17 11:55 11/03/17 22:33 Lipitor - PO 40 mg HS DEBBIE Administration Doxazosin Mesylate 2 mg 10/30/17 22:00 11/03/17 22:36 Cardura - PO 2 mg HS DEBBIE Administration Sodium Chloride 1,000 mls @ 70 mls/hr 11/03/17 16:45 11/03/17 18:00 1/2 Normal Saline IV 70 mls/hr ASDIR DEBBIE Administration Lactulose 20 gm 10/31/17 22:00 11/04/17 09:55 Cephulac (Oral Use) PO 20 gm BID DEBBIE Administration Polyethylene Glycol 17 gm 10/30/17 16:15 11/04/17 15:47 Miralax (For Daily Use) - PO Not Given TID DEBBIE Ranolazine 500 mg 10/30/17 10:00 11/04/17 09:54 Ranexa - PO 500 mg BID DEBBIE Administration Senna/Docusate Sodium 1 tablet 10/30/17 13:30 11/04/17 09:55 Pericolace - PO 1 tablet BID DEBBIE Administration Home Medications Medication Instructions Recorded Metoprolol Tartrate [Lopressor -] 100 mg PO DAILY #0 tablet 11/27/11 Aspirin [ASA -] 81 mg PO DAILY 10/21/17 Atorvastatin Ca [Lipitor] 80 mg PO HS 10/21/17 Carvedilol [Coreg -] 6.25 mg PO DAILY 10/21/17 Clopidogrel Bisulfate [Plavix -] 75 mg PO DAILY 10/21/17 Doxazosin Mesylate [Cardura -] 2 mg PO HS 10/21/17 Furosemide [Lasix -] 40 mg PO DAILY 10/21/17 Ranolazine [Ranexa] 500 mg PO BID 10/21/17 Ticagrelor [Brilinta -] 90 mg PO BID 10/21/17 Laboratory Tests 10/29/17 11/05/17 13:05 06:45 BUN 117 H* 48 H Creatinine 7.3 H 4.6 H PE: per resident's note ASSESSMENT AND PLAN: Patient ia a 52 y/o man with h/o polysubstance abuse , HTN, diastolic heart failure , and recent diagnosis of CKD 5, who presented from [facility] with rectal bleed in the setting of constipation. # Acute Fecal impaction: due to opioids use, patient started on Miralax, Lactulose and senna, GI on the case, Enema if needed. possible colonoscopy or sigmoidoscopy to investigate further. consult GI # Acute renal failure unknown etiology; Further w/u is pending. UPEP and SPEP pending, and other vasculitidis w/u, nephro on the case, on IVF as per nephro. # H/o Diastolic CHF, Dc'd BB and started norvasc due to cocaine use. and Ranexa. #HTN: on Norvasc continue #Opioid abuse: completed detox. will monitor for now. DVT Px: Scds, early ambulation.
[2017-11-04] MEDS: ATORVASTATIN CA 80 MG TABLET (FP) PO SCH (22:58)
[2017-11-04] MEDS: SODIUM CHLORIDE 0.45% 1,000 ML IV SCH (23:00)
[2017-11-04] MEDS: DOXAZOSIN MESYLATE 2 MG TABLET (FP) PO SCH (23:00)
[2017-11-05 06:07] LABS: SERUM IRON SATURATION 20 % (15-55); TOTAL IRON BINDING CAPACITY 188 ug/dL (250-450); UIBC 151 ug/dL (111-343)
[2017-11-05] MEDS: POLYETHYLENE GLYCOL 3350 119 GM BTL PO SCH ×3 (06:16→21:46)
[2017-11-05 07:38] LABS: HEMATOCRIT 28.5 % (35.4-49); HEMOGLOBIN 9.2 GM/dL (11.7-16.9); MCH 27.6 pg (25.7-33.7); MCHC 32.1 g/dl (32.0-35.9); MEAN CELL VOLUME 86.1 fl (80-96); MEAN PLT VOLUME 7.9 fl (7.5-11.1); PLATELET COUNT 168 K/MM3 (134-434); RBC 3.31 M/mm3 (4.00-5.60); RDW 15.9 % (11.9-15.9); WHITE BLOOD COUNT 6.5 K/mm3 (4.0-10.0)
[2017-11-05 08:00] LABS: ANION GAP 8 (8-16); BLOOD UREA NITROGEN 48 mg/dL (7-18); CALCIUM 8.1 mg/dL (8.5-10.1); CHLORIDE 105 mmol/L (98-107); CO2 26 mmol/L (21-32); CREATININE 4.6 mg/dL (0.7-1.3); GLUCOSE,RANDOM 83 mg/dL (74-106); POTASSIUM 3.6 mmol/L (3.5-5.1); SODIUM 139 mmol/L (136-145)
[2017-11-05] MEDS ORDERED: PEG 3350/NA SULF BICARB CL/KCL 4000 ML SOLN.RECON PO ONE (10:46)
[2017-11-05] MEDS ORDERED: BISACODYL 5 MG TABLET.DR (FP) PO ONE (10:46)
[2017-11-05] MEDS: amLODIPine BESYLATE 5 MG TABLET (FP) PO SCH (10:48)
[2017-11-05] MEDS: RANOLAZINE E.R. 500 MG TABLET (FP) PO SCH ×2 (10:48→21:47)
[2017-11-05] MEDS: LACTULOSE 20 GM/30 ML UDC (FOR ORAL USE ONLY) PO SCH ×2 (10:48→21:45)
[2017-11-05] MEDS: SENNOSIDES/DOCUSATE COMBO (SENNA PLUS) TABLET (UD) PO SCH ×2 (10:48→21:46)
--- NOTE | 2017-11-05 11:24 | PN ---
Progress Note, Physician History of Present Illness: No events. Agreed to clear liquid diet and colon prep - Current Medication List Current Medications: Active Medications Amlodipine Besylate (Norvasc -) 10 mg PO DAILY [facility] Last Admin: 11/05/17 10:48 Dose: 10 mg Atorvastatin Calcium (Lipitor -) 40 mg PO HS [facility] Last Admin: 11/04/17 22:58 Dose: 40 mg Doxazosin Mesylate (Cardura -) 2 mg PO HS [facility] Last Admin: 11/04/17 23:00 Dose: 2 mg Sodium Chloride (1/2 Normal Saline) 1,000 mls @ 70 mls/hr IV ASDIR [facility] Last Admin: 11/04/17 23:00 Dose: 70 mls/hr Lactulose (Cephulac (Oral Use)) 20 gm PO BID [facility] Last Admin: 11/05/17 10:48 Dose: 20 gm Polyethylene Glycol (Miralax (For Daily Use) -) 17 gm PO TID [facility] Last Admin: 11/05/17 06:16 Dose: Not Given Ranolazine (Ranexa -) 500 mg PO BID [facility] Last Admin: 11/05/17 10:48 Dose: 500 mg Senna/Docusate Sodium (Pericolace -) 1 tablet PO BID [facility] Last Admin: 11/05/17 10:48 Dose: 1 tablet - Objective Vital Signs: Vital Signs Temperature 99.0 F 11/05/17 06:01 Pulse Rate 99 H 11/05/17 06:01 Respiratory Rate 20 11/05/17 06:01 Blood Pressure 129/80 11/05/17 06:01 O2 Sat by Pulse Oximetry (%) 100 11/04/17 21:00 Constitutional: Yes: No Distress, Calm Eyes: Yes: Conjunctiva Clear HENT: Yes: Atraumatic Neck: Yes: Supple Cardiovascular: Yes: Regular Rate and Rhythm Respiratory: Yes: Regular Gastrointestinal: Yes: Soft. No: Melena, Rectal Bleeding, Tenderness, Tenderness, Epigastrium Neurological: Yes: Alert Labs: CBC, BMP 11/05/17 06:45 11/05/17 06:45 INR, PTT INR 1.11 (0.82-1.09) 10/31/17 07:30 Laboratory Results - last 24 hr 10/30/17 11/04/17 11/05/17 19:30 07:00 06:45 WBC 6.5 RBC 3.31 L Hgb 9.2 L Hct 28.5 L MCV 86.1 MCH 27.6 MCHC 32.1 RDW 15.9 Plt Count 168 MPV 7.9 Sodium Potassium Chloride Carbon Dioxide Anion Gap BUN Creatinine Random Glucose Calcium Iron 37 L TIBC 188 L Iron Saturation 20 Albumin % 42.6 Gamma Globulins (%) 25.3 Ur Total Protein 24 Hr Urine Total Protein 59.6 U PEP M-Andrei U Random WILLIAM M-Andrei % Not observed Ref Test Comments 11/05/17 06:45 WBC RBC Hgb Hct MCV MCH MCHC RDW Plt Count MPV Sodium 139 Potassium 3.6 Chloride 105 Carbon Dioxide 26 Anion Gap 8 BUN 48 H Creatinine 4.6 H Random Glucose 83 Calcium 8.1 L Iron TIBC Iron Saturation Albumin % Gamma Globulins (%) Ur Total Protein 24 Hr Urine Total Protein U PEP M-Andrei U Random WILLIAM M-Andrei % Ref Test Comments Problem List - Problems (1) Stercoral ulcer of large intestine Code(s): K63.3 - ULCER OF INTESTINE (2) Hematochezia Code(s): K92.1 - MELENA Assessment/Plan Agree with aggressive bowel regiment. Plan colonoscopy discussed with the patient
[2017-11-05 14:14] LABS: ATYPICAL pANCA <1:20 titer (Neg:<1:20); C-ANCA <1:20 titer (Neg:<1:20); P-ANCA <1:20 titer (Neg:<1:20); PROTEINASE-3 ANTIBODY <3.5 U/mL (0.0-3.5)
--- NOTE | 2017-11-05 14:28 | PN ---
Physical Exam: SUBJECTIVE: Patient seen and examined. Large formed BM yesterday followed by watery stool, less straining. No n/v, fever, chill, abdominal pain. OBJECTIVE: Vital Signs Period Temp Pulse Resp BP Sys/Schwartz Pulse Ox Last 24 Hr 98.3 F-99.0 F 81-99 20-20 129-157/80-101 100 GENERAL: aaox3, nad EYES: sclera anicteric, conjunctiva clear ENT: MMM LUNGS: CTAB HEART: rrr, normal s1/s2, no m/r/g, (-) JVD ABDOMEN: Soft, ntnd, normoactive BS EXTREMITIES: 2+ DP pulses, wwp, no edema CBC, BMP 11/05/17 06:45 11/05/17 06:45 Hepatic Panel Total Bilirubin 0.3 mg/dL (0.2-1.0) D 11/04/17 07:00 AST 18 U/L (15-37) 11/04/17 07:00 ALT 13 U/L (12-78) 11/04/17 07:00 Alkaline Phosphatase 53 U/L (45-117) 11/04/17 07:00 Albumin 2.5 g/dl (3.4-5.0) L 11/04/17 07:00 ASSESSMENT/PLAN: 52yo man with PMH of PSA (heroine, cocaine), HTN, diastolic CHF, recent dx of CKD stage 5 who was sent over from [facility] rehab after completing detox for constipation c/b rectal bleeding. #fecal retention likely due to narcotics, CT AP revealed thickened rectal wall, guaiac+ stool -GI consulted - planning for colonoscopy tomorrow -Clear lq diet and bowel prep today #CKD stage 5, Cr stabilized, work-up for etiology in progress -continue IVFs -Renal following. Plan for biopsy early next week -lab w/u neg thus far (SHERICE, c-ANCA, p-ANCA, dsDNA, PR3, C3/C4 wnl, hepatitis panel); M-spike still pending #diastolic CHF - no e/o overload -Cont Norvasc 10mg daily -No BB due to cocaine use #?CAD - Patient reports was told he had AK; was Rx ASA and ticagrelor - will hold in setting of bleeding and possible renal bx #PSA (heroine, cocaine)- completed detox, monitor for withdrawal signs -d/w patient about returning to [facility] for rehab #FEN - 1/2NS@70cc / lytes wnl / Clear lq today, NPO after midnight for c-scope tomorrow #DVT PPX - encourage ambulation DISPO: continue m/s FULL code d/w Dr. Rosita Merlos MD PGY1 - Internal Medicine Visit type - Emergency Visit Emergency Visit: No - New Patient This patient is new to me today: No - Critical Care Critical Care patient: No
--- NOTE | 2017-11-05 15:24 | PN ---
Progress Note, Physician History of Present Illness: Pt seen and examined at bedside. He is awake and alert. He denies shortness of breath. - Current Medication List Current Medications: Active Medications Amlodipine Besylate (Norvasc -) 10 mg PO DAILY [facility] Last Admin: 11/05/17 10:48 Dose: 10 mg Atorvastatin Calcium (Lipitor -) 40 mg PO HS [facility] Last Admin: 11/04/17 22:58 Dose: 40 mg Doxazosin Mesylate (Cardura -) 2 mg PO HS [facility] Last Admin: 11/04/17 23:00 Dose: 2 mg Sodium Chloride (1/2 Normal Saline) 1,000 mls @ 70 mls/hr IV ASDIR [facility] Last Admin: 11/04/17 23:00 Dose: 70 mls/hr Lactulose (Cephulac (Oral Use)) 20 gm PO BID [facility] Last Admin: 11/05/17 10:48 Dose: 20 gm Polyethylene Glycol (Miralax (For Daily Use) -) 17 gm PO TID [facility] Last Admin: 11/05/17 06:16 Dose: Not Given Ranolazine (Ranexa -) 500 mg PO BID [facility] Last Admin: 11/05/17 10:48 Dose: 500 mg Senna/Docusate Sodium (Pericolace -) 1 tablet PO BID [facility] Last Admin: 11/05/17 10:48 Dose: 1 tablet - Objective Vital Signs: Vital Signs Temperature 99.0 F 11/05/17 06:01 Pulse Rate 99 H 11/05/17 06:01 Respiratory Rate 20 11/05/17 06:01 Blood Pressure 129/80 11/05/17 06:01 O2 Sat by Pulse Oximetry (%) 100 11/04/17 21:00 Constitutional: Yes: Calm Eyes: Yes: Conjunctiva Clear HENT: Yes: Atraumatic Neck: Yes: Supple Cardiovascular: Yes: S1, S2 Respiratory: Yes: CTA Bilaterally Gastrointestinal: Yes: Soft Genitourinary: Yes: WNL Musculoskeletal: Yes: WNL Edema: No Integumentary: Yes: WNL Neurological: Yes: Oriented Psychiatric: Yes: Oriented Labs: CBC, BMP 11/05/17 06:45 11/05/17 06:45 INR, PTT INR 1.11 (0.82-1.09) 10/31/17 07:30 Problem List - Problems (1) CAD (coronary artery disease) Code(s): I25.10 - ATHSCL HEART DISEASE OF [place] CORONARY ARTERY W/O ANG PCTRS Qualifiers: Coronary Disease-Associated Artery/Lesion type: [place] artery [place] vs. transplanted heart: [place] heart Associated angina: angina presence unspecified Qualified Code(s): I25.10 - Atherosclerotic heart disease of [place] coronary artery without angina pectoris (2) Constipation Code(s): K59.00 - CONSTIPATION, UNSPECIFIED Qualifiers: Constipation type: unspecified constipation type Qualified Code(s): K59.00 - Constipation, unspecified (3) ANUEL (acute kidney injury) Code(s): N17.9 - ACUTE KIDNEY FAILURE, UNSPECIFIED (4) CHF (congestive heart failure) Code(s): I50.9 - HEART FAILURE, UNSPECIFIED Qualifiers: Congestive heart failure type: diastolic Congestive heart failure chronicity: chronic Qualified Code(s): I50.32 - Chronic diastolic (congestive ) heart failure (5) Cocaine dependence Code(s): F14.20 - COCAINE DEPENDENCE, UNCOMPLICATED Qualifiers: Substance use status: with unspecified cocaine-induced disorder Qualified Code(s): F14.29 - Cocaine dependence with unspecified cocaine-induced disorder (6) Hypertension Code(s): I10 - ESSENTIAL (PRIMARY) HYPERTENSION Qualifiers: Hypertension type: essential hypertension Qualified Code(s): I10 - Essential (primary) hypertension (7) Mood disorder Code(s): F39 - UNSPECIFIED MOOD [AFFECTIVE] DISORDER (8) Nicotine dependence Code(s): F17.200 - NICOTINE DEPENDENCE, UNSPECIFIED, UNCOMPLICATED Qualifiers: Nicotine product type: cigarettes Substance use status: in withdrawal Qualified Code(s): F17.213 - Nicotine dependence, cigarettes, with withdrawal (9) Opioid dependence Code(s): F11.20 - OPIOID DEPENDENCE, UNCOMPLICATED (10) Hyperlipidemia Code(s): E78.5 - HYPERLIPIDEMIA, UNSPECIFIED Qualifiers: Hyperlipidemia type: pure hypercholesterolemia Qualified Code(s): E78.00 - Pure hypercholesterolemia, unspecified; E78.0 - Pure hypercholesterolemia Assessment/Plan Current Medications Generic Name Dose Route Start Last Admin Trade Name Freq PRN Reason Stop Dose Admin Amlodipine Besylate 10 mg 11/04/17 10:00 11/05/17 10:48 Norvasc - PO 10 mg DAILY DEBBIE Administration Atorvastatin Calcium 40 mg 10/31/17 11:55 11/04/17 22:58 Lipitor - PO 40 mg HS DEBBIE Administration Doxazosin Mesylate 2 mg 10/30/17 22:00 11/04/17 23:00 Cardura - PO 2 mg HS DEBBIE Administration Sodium Chloride 1,000 mls @ 70 mls/hr 11/03/17 16:45 11/04/17 23:00 1/2 Normal Saline IV 70 mls/hr ASDIR DEBBIE Administration Lactulose 20 gm 10/31/17 22:00 11/05/17 10:48 Cephulac (Oral Use) PO 20 gm BID DEBBIE Administration Polyethylene Glycol 17 gm 10/30/17 16:15 11/05/17 06:16 Miralax (For Daily Use) - PO Not Given TID DEBBIE Ranolazine 500 mg 10/30/17 10:00 11/05/17 10:48 Ranexa - PO 500 mg BID DEBBIE Administration Senna/Docusate Sodium 1 tablet 10/30/17 13:30 11/05/17 10:48 Pericolace - PO 1 tablet BID DEBBIE Administration Laboratory Tests 10/30/17 10/30/17 10/31/17 18:00 19:30 07:30 U Random WILLIAM M-Andrei % Not observed SHERICE Screen Negative c-ANCA <1:20 Proteinase 3 (PR3) <3.5 p-ANCA <1:20 Atypical p-ANCA <1:20 Myeloperoxidase Ab <9.0 Double Strand DNA Ab <1 Complement C3 115 Complement C4 31 Impression 1. ANUEL 2. heroin use 3. HTN 4. hx CKD 5. constipation Plan - cont fluids - renal function stabilizing - can get renal biopsy next week - serologic workup is negative so far - discussed plan with pt - will follow Dr Bunn
[2017-11-05] MEDS: SODIUM CHLORIDE 0.45% 1,000 ML IV SCH (18:02)
--- NOTE | 2017-11-05 18:14 | PN ---
Teaching Attending Note Name of Resident: Hanna Merlos ATTENDING PHYSICIAN STATEMENT I saw and evaluated the patient. I reviewed the resident's note and discussed the case with the resident. I agree with the resident's findings and plan as documented. SUBJECTIVE: Patient had a large BM , feels better. OBJECTIVE: Vital Signs Temperature 99.0 F 11/05/17 06:01 Pulse Rate 99 H 11/05/17 06:01 Respiratory Rate 20 11/05/17 06:01 Blood Pressure 129/80 11/05/17 06:01 O2 Sat by Pulse Oximetry (%) 100 11/04/17 21:00 CBCD WBC 6.5 K/mm3 (4.0-10.0) 11/05/17 06:45 RBC 3.31 M/mm3 (4.00-5.60) L 11/05/17 06:45 Hgb 9.2 GM/dL (11.7-16.9) L 11/05/17 06:45 Hct 28.5 % (35.4-49) L 11/05/17 06:45 MCV 86.1 fl (80-96) 11/05/17 06:45 MCHC 32.1 g/dl (32.0-35.9) 11/05/17 06:45 RDW 15.9 % (11.9-15.9) 11/05/17 06:45 Plt Count 168 K/MM3 (134-434) 11/05/17 06:45 MPV 7.9 fl (7.5-11.1) 11/05/17 06:45 CMP Sodium 139 mmol/L (136-145) 11/05/17 06:45 Potassium 3.6 mmol/L (3.5-5.1) 11/05/17 06:45 Chloride 105 mmol/L (98-107) 11/05/17 06:45 Carbon Dioxide 26 mmol/L (21-32) 11/05/17 06:45 Anion Gap 8 (8-16) 11/05/17 06:45 BUN 48 mg/dL (7-18) H 11/05/17 06:45 Creatinine 4.6 mg/dL (0.7-1.3) H 11/05/17 06:45 Creat Clearance w eGFR 14.09 (>60) 11/04/17 07:00 Random Glucose 83 mg/dL (74-106) 11/05/17 06:45 Calcium 8.1 mg/dL (8.5-10.1) L 11/05/17 06:45 Total Bilirubin 0.3 mg/dL (0.2-1.0) D 11/04/17 07:00 AST 18 U/L (15-37) 11/04/17 07:00 ALT 13 U/L (12-78) 11/04/17 07:00 Alkaline Phosphatase 53 U/L (45-117) 11/04/17 07:00 Total Protein 7.2 g/dl (6.4-8.2) 11/04/17 07:00 Albumin 2.5 g/dl (3.4-5.0) L 11/04/17 07:00 Current Medications Generic Name Dose Route Start Last Admin Trade Name Freq PRN Reason Stop Dose Admin Amlodipine Besylate 10 mg 11/04/17 10:00 11/05/17 10:48 Norvasc - PO 10 mg DAILY DEBBIE Administration Atorvastatin Calcium 40 mg 10/31/17 11:55 11/04/17 22:58 Lipitor - PO 40 mg HS DEBBIE Administration Doxazosin Mesylate 2 mg 10/30/17 22:00 11/04/17 23:00 Cardura - PO 2 mg HS DEBBIE Administration Sodium Chloride 1,000 mls @ 70 mls/hr 11/03/17 16:45 11/05/17 18:02 1/2 Normal Saline IV Not Given ASDIR DEBBIE Lactulose 20 gm 10/31/17 22:00 11/05/17 10:48 Cephulac (Oral Use) PO 20 gm BID DEBBIE Administration Polyethylene Glycol 17 gm 10/30/17 16:15 11/05/17 15:34 Miralax (For Daily Use) - PO Not Given TID DEBBIE Ranolazine 500 mg 10/30/17 10:00 11/05/17 10:48 Ranexa - PO 500 mg BID DEBBIE Administration Senna/Docusate Sodium 1 tablet 10/30/17 13:30 11/05/17 10:48 Pericolace - PO 1 tablet BID DEBBIE Administration Home Medications Medication Instructions Recorded Metoprolol Tartrate [Lopressor -] 100 mg PO DAILY #0 tablet 11/27/11 Aspirin [ASA -] 81 mg PO DAILY 10/21/17 Atorvastatin Ca [Lipitor] 80 mg PO HS 10/21/17 Carvedilol [Coreg -] 6.25 mg PO DAILY 10/21/17 Clopidogrel Bisulfate [Plavix -] 75 mg PO DAILY 10/21/17 Doxazosin Mesylate [Cardura -] 2 mg PO HS 10/21/17 Furosemide [Lasix -] 40 mg PO DAILY 10/21/17 Ranolazine [Ranexa] 500 mg PO BID 10/21/17 Ticagrelor [Brilinta -] 90 mg PO BID 10/21/17 Laboratory Tests 10/29/17 11/05/17 13:05 06:45 BUN 117 H* 48 H Creatinine 7.3 H 4.6 H PE: per resident's note ASSESSMENT AND PLAN: 52yo man with PMH of PSA (heroine, cocaine), HTN, diastolic CHF, was send [facility] after completing detox for constipation with rectal bleeding. # Acute Fecal impaction: due to opioids use, patient started on Miralax, Lactulose and senna, GI on the case, Enema if needed. colonoscopy / sigmoidoscopy in a am for further investigation. on the case GI. CT AP revealed thickened rectal wall Patient is NPO after midnight for colonscopy tomorrow. # Acute renal failure unknown etiology; Further w/u is pending. UPEP and SPEP pending, and other vasculitidis w/u, nephro on the case, on IVF as per nephro. -lab w/u neg thus far (SHERICE, c-ANCA, p-ANCA, dsDNA, PR3, C3/C4 wnl, hepatitis panel); M-spike still pending # H/o Diastolic CHF, Dc'd BB and started norvasc due to cocaine use. and Ranexa. #HTN: on Norvasc continue #Opioid abuse: completed detox. will monitor for now. DVT Px: Scds, early ambulation. Full code
[2017-11-05] MEDS: DOXAZOSIN MESYLATE 2 MG TABLET (FP) PO SCH (21:44)
[2017-11-05] MEDS: ATORVASTATIN CA 80 MG TABLET (FP) PO SCH (21:45)
[2017-11-06] MEDS: POLYETHYLENE GLYCOL 3350 119 GM BTL PO SCH (06:19)
[2017-11-06 10:02] VITALS: TEMP 98.4
[2017-11-06] MEDS: LACTULOSE 20 GM/30 ML UDC (FOR ORAL USE ONLY) PO SCH (10:12)
[2017-11-06] MEDS: amLODIPine BESYLATE 5 MG TABLET (FP) PO SCH (10:12)
[2017-11-06] MEDS: SENNOSIDES/DOCUSATE COMBO (SENNA PLUS) TABLET (UD) PO SCH (10:12)
[2017-11-06] MEDS: RANOLAZINE E.R. 500 MG TABLET (FP) PO SCH (10:12)
[2017-11-06 10:37] LABS: ANION GAP 5 (8-16); BLOOD UREA NITROGEN 45 mg/dL (7-18); CALCIUM 7.9 mg/dL (8.5-10.1); CHLORIDE 114 mmol/L (98-107); CO2 26 mmol/L (21-32); GLUCOSE,RANDOM 117 mg/dL (74-106); POTASSIUM 3.6 mmol/L (3.5-5.1); SODIUM 145 mmol/L (136-145)
[2017-11-06 10:39] LABS: CREATININE 4.6 mg/dL (0.7-1.3)
--- NOTE | 2017-11-06 10:54 | PN ---
Teaching Attending Note Name of Resident: Hanna Merlos ATTENDING PHYSICIAN STATEMENT I saw and evaluated the patient. I reviewed the resident's note and discussed the case with the resident. I agree with the resident's findings and plan as documented. SUBJECTIVE: Patient is comfortable with no acute distress. Wants to go to detox rehab. OBJECTIVE: Vital Signs Temperature 98.4 F 11/06/17 10:01 Pulse Rate 80 11/06/17 10:01 Respiratory Rate 20 11/06/17 10:01 Blood Pressure 152/97 11/06/17 10:01 O2 Sat by Pulse Oximetry (%) 100 11/05/17 21:00 CBCD WBC 6.5 K/mm3 (4.0-10.0) 11/05/17 06:45 RBC 3.31 M/mm3 (4.00-5.60) L 11/05/17 06:45 Hgb 9.2 GM/dL (11.7-16.9) L 11/05/17 06:45 Hct 28.5 % (35.4-49) L 11/05/17 06:45 MCV 86.1 fl (80-96) 11/05/17 06:45 MCHC 32.1 g/dl (32.0-35.9) 11/05/17 06:45 RDW 15.9 % (11.9-15.9) 11/05/17 06:45 Plt Count 168 K/MM3 (134-434) 11/05/17 06:45 MPV 7.9 fl (7.5-11.1) 11/05/17 06:45 CMP Sodium 145 mmol/L (136-145) 11/06/17 09:44 Potassium 3.6 mmol/L (3.5-5.1) 11/06/17 09:44 Chloride 114 mmol/L (98-107) H 11/06/17 09:44 Carbon Dioxide 26 mmol/L (21-32) 11/06/17 09:44 Anion Gap 5 (8-16) L 11/06/17 09:44 BUN 45 mg/dL (7-18) H 11/06/17 09:44 Creatinine 4.6 mg/dL (0.7-1.3) H 11/06/17 09:44 Creat Clearance w eGFR 14.09 (>60) 11/04/17 07:00 Random Glucose 117 mg/dL (74-106) H D 11/06/17 09:44 Calcium 7.9 mg/dL (8.5-10.1) L 11/06/17 09:44 Total Bilirubin 0.3 mg/dL (0.2-1.0) D 11/04/17 07:00 AST 18 U/L (15-37) 11/04/17 07:00 ALT 13 U/L (12-78) 11/04/17 07:00 Alkaline Phosphatase 53 U/L (45-117) 11/04/17 07:00 Total Protein 7.2 g/dl (6.4-8.2) 11/04/17 07:00 Albumin 2.5 g/dl (3.4-5.0) L 11/04/17 07:00 Current Medications Generic Name Dose Route Start Last Admin Trade Name Freq PRN Reason Stop Dose Admin Amlodipine Besylate 10 mg 11/04/17 10:00 11/06/17 10:12 Norvasc - PO 10 mg DAILY DEBBIE Administration Atorvastatin Calcium 40 mg 10/31/17 11:55 11/05/17 21:45 Lipitor - PO 40 mg HS DEBBIE Administration Doxazosin Mesylate 2 mg 10/30/17 22:00 11/05/17 21:44 Cardura - PO 2 mg HS DEBBIE Administration Sodium Chloride 1,000 mls @ 70 mls/hr 11/03/17 16:45 11/05/17 18:02 1/2 Normal Saline IV Not Given ASDIR DEBBIE Lactulose 20 gm 10/31/17 22:00 11/06/17 10:12 Cephulac (Oral Use) PO 20 gm BID DEBBIE Administration Polyethylene Glycol 17 gm 10/30/17 16:15 11/06/17 06:19 Miralax (For Daily Use) - PO Not Given TID DEBBIE Ranolazine 500 mg 10/30/17 10:00 11/06/17 10:12 Ranexa - PO 500 mg BID DEBBIE Administration Senna/Docusate Sodium 1 tablet 10/30/17 13:30 11/06/17 10:12 Pericolace - PO 1 tablet BID DEBBIE Administration Home Medications Medication Instructions Recorded Metoprolol Tartrate [Lopressor -] 100 mg PO DAILY #0 tablet 11/27/11 Aspirin [ASA -] 81 mg PO DAILY 10/21/17 Atorvastatin Ca [Lipitor] 80 mg PO HS 10/21/17 Carvedilol [Coreg -] 6.25 mg PO DAILY 10/21/17 Clopidogrel Bisulfate [Plavix -] 75 mg PO DAILY 10/21/17 Doxazosin Mesylate [Cardura -] 2 mg PO HS 10/21/17 Furosemide [Lasix -] 40 mg PO DAILY 10/21/17 Ranolazine [Ranexa] 500 mg PO BID 10/21/17 Ticagrelor [Brilinta -] 90 mg PO BID 10/21/17 PE: per resident's note ASSESSMENT AND PLAN: 52yo man with PMH of PSA (heroine, cocaine), HTN, diastolic CHF, was send from [facility] rehab after completing detox for constipation with rectal bleeding. # Acute Fecal impaction: resolved due to opioids use, continue Miralax, Lactulose and senna as needed. Colonoscopy / sigmoidoscopy in a am for further investigation. on the case GI. CT AP revealed thickened rectal wall # Acute renal failure unknown etiology; Further w/u is pending. UPEP and SPEP pending, and other vasculitidis w/u, nephro on the case, s/p IVF -lab w/u neg thus far (SHERICE, c-ANCA, p-ANCA, dsDNA, PR3, C3/C4 wnl, hepatitis panel); M-spike still pending, follow with nephrology for further w/u and bx of the kidneys # H/o Diastolic CHF, Dc'd BB and started norvasc due to cocaine use. and home Ranexa continue #HTN: on Norvasc continue #Opioid abuse: completed detox. will monitor for now. DVT Px: Scds, early ambulation. Full code going for rehab. follow with for renal bx and further care.
[2017-11-06] MEDS ORDERED: POTASSIUM CHLORIDE TABS 20 MEQ TABLET.ER (FP) PO ONE (10:55)
--- NOTE | 2017-11-06 11:39 | DS ---
Physical Exam: SUBJECTIVE: Patient seen and examined OBJECTIVE: Vital Signs Period Temp Pulse Resp BP Sys/Schwartz Pulse Ox Last 24 Hr 98.3 F-98.9 F 80-97 18-20 132-155/80-97 100 PHYSICAL EXAM GENERAL: The patient is awake, alert, and fully oriented, in no acute distress. HEAD: Normal with no signs of trauma. EYES: PERRL, extraocular movements intact, sclera anicteric, conjunctiva clear. ENT: Ears normal, nares patent, oropharynx clear without exudates, moist mucous membranes. NECK: Trachea midline, full range of motion, supple. LUNGS: Breath sounds equal, clear to auscultation bilaterally, no wheezes, no crackles, no accessory muscle use. HEART: Regular rate and rhythm, S1, S2 without murmur, rub or gallop. ABDOMEN: Soft, nontender, nondistended, normoactive bowel sounds, no guarding, no rebound, no hepatosplenomegaly, no masses. EXTREMITIES: 2+ pulses, warm, well-perfused, no edema. NEUROLOGICAL: Cranial nerves II through XII grossly intact. Normal speech, gait not observed. PSYCH: Normal mood, normal affect. SKIN: Warm, dry, normal turgor, no rashes or lesions noted. LABS Laboratory Results - last 24 hr 10/30/17 11/06/17 18:00 09:44 Sodium 145 Potassium 3.6 Chloride 114 H Carbon Dioxide 26 Anion Gap 5 L BUN 45 H Creatinine 4.6 H Random Glucose 117 H D Calcium 7.9 L c-ANCA <1:20 Proteinase 3 (PR3) <3.5 p-ANCA <1:20 Atypical p-ANCA <1:20 Myeloperoxidase Ab <9.0 HOSPITAL COURSE: Date of Admission:10/30/17 Date of Discharge: 11/06/17 Discharge Summary Reason For Visit: RECTAL HEMORRHAGE/CONSTIPATION Current Active Problems CAD (coronary artery disease) (Acute) Constipation (Acute) Hematochezia (Acute) Stercoral ulcer of large intestine (Acute) Condition: Stable - Instructions Diet, Activity, Other Instructions: You were admitted to the hospital for constipation and rectal bleeding. You were also found to have kidney disease with elevated Creatinine. You were given stool softeners and enemas to help with your constipation. You were given intravenous fluids for hydration, which improved your kidney function. You are being transferred to [facility] for drug rehabilitation. Follow their recommendations for medications and diet. Recommendations: -You need to abstain from drugs. Heroine will worsen your kidney function. -Keep a renal diet, including limiting your sodium and potassium intake. -Drink plenty of fluids to stay hydrated Medications: -Continue to take your regular medications, including Cardura, Ranexa, and Lipitor. -Start taking Amplodipine 10mg daily for your high blood pressure. You should not take any medications that are Beta-blockers if you are still abusing cocaine. -Stop taking Lasix. -Take Miralax and Pericolace two times per day for your constipation. If you have more diarrhea/loose stools for more than 2 days in a row stop taking these medications. -Do not resume ASA, Brilinta or Plavix until you have your kidney biopsy. Speak to Dr. Bunn (Kidney doctor)when you should restart them. -You should not take medications that are NSAIDs, including Motrin, Advil, Ibuprofen that can worsen your kidney function. Follow-ups: -Make an appointment to see Dr. Bunn within 2-3 days to follow your kidney function and to schedule a biopsy of your kidney. -Make an appointment within 1-[address] Casas, a general medicine doctor , for post-hospitalization evaluation. Please return to the Emergency Department if you have worsening, new or concerning symptoms. Referrals: Ashish Casas MD [Staff Physician] - Hugo Bunn MD [Staff Physician] - 1 Week Disposition: TRANSFER ACUTE CARE/OTHER HOSP - Home Medications Comprehensive Discharge Medication List: Ambulatory Orders Atorvastatin Ca [Lipitor] 80 mg PO HS 10/21/17 Doxazosin Mesylate [Cardura -] 2 mg PO HS 10/21/17 Ranolazine [Ranexa] 500 mg PO BID 10/21/17 Amlodipine Besylate [Norvasc -] 10 mg PO DAILY tablet 11/06/17 Polyethylene Glycol 3350 [Miralax 119 gm Btl -] 17 gm PO BID bottle 11/06/17 Sennosides/Docusate Sodium [Pericolace -] 1 tablet PO BID tablet 11/06/17 - Discharge Referral Referred to [facility] No
[2017-11-06 12:04] VITALS: BP 156/95; PULSE 92
--- NOTE | 2017-11-06 13:29 | PN ---
Progress Note, Physician History of Present Illness: No events. no bleeding. refused prep again. - Objective Vital Signs: Vital Signs Temperature 98.4 F 11/06/17 10:01 Pulse Rate 92 H 11/06/17 12:03 Respiratory Rate 20 11/06/17 12:03 Blood Pressure 156/95 11/06/17 12:03 O2 Sat by Pulse Oximetry (%) 100 11/06/17 11:00 Constitutional: Yes: No Distress, Calm Eyes: Yes: Conjunctiva Clear HENT: Yes: Atraumatic Neck: Yes: Supple Cardiovascular: Yes: Regular Rate and Rhythm Respiratory: Yes: Regular Gastrointestinal: Yes: Normal Bowel Sounds, Soft Neurological: Yes: Alert, Oriented Labs: CBC, BMP 11/05/17 06:45 11/06/17 09:44 INR, PTT INR 1.11 (0.82-1.09) 10/31/17 07:30 Abnormal Lab Results 11/06/17 09:44 Chloride 114 H Anion Gap 5 L BUN 45 H Creatinine 4.6 H Random Glucose 117 H D Calcium 7.9 L Problem List - Problems (1) Stercoral ulcer of large intestine Code(s): K63.3 - ULCER OF INTESTINE (2) Hematochezia Code(s): K92.1 - MELENA Assessment/Plan Plan colonoscopy as op discussed with the patient
== END 2017-11-06 13:09 | disposition home or self-care (01) | DRG 253 ==
LOC: JER 12:11 → JERBED 21:02 → J5S 10-30 00:54 → OBSVTOIN 10-30 00:57
PROVIDERS: ADMIT Internal Medicine; ATTEND Internal Medicine
DX: K62.5 Hemorrhage of anus and rectum (principal); N17.9 Acute kidney failure, unspecified; I13.2 Hypertensive heart and chronic kidney disease with heart failure and with stage 5 chronic kidney disease, or end stage renal disease; K63.3 Ulcer of intestine; F14.20 Cocaine dependence, uncomplicated; F11.20 Opioid dependence, uncomplicated; I50.32 Chronic diastolic (congestive) heart failure; N18.5 Chronic kidney disease, stage 5; E78.5 Hyperlipidemia, unspecified; F32.9 Major depressive disorder, single episode, unspecified; F17.210 Nicotine dependence, cigarettes, uncomplicated; F39 Unspecified mood [affective] disorder; K59.03 Drug induced constipation; T40.0X5A Adverse effect of opium, initial encounter
CPT/HCPCS: 36415; 74176-TC; 76775-TC; 80048; 80053; 81003; 81015; 82272; 82436; 82570; 83036; 83520; 83540; 83550; 83605; 83690; 84133; 84155; 84156; 84165; 84166; 84300; 84439; 84443; 85025; 85027; 85610; 86038; 86160; 86225; 86256; 86704; 86706; 86708; 86803; 87340; 87389; 99285-25; G0378; Q9967

== ENCOUNTER 2017-11-06 13:30 | Inpatient (IN) | payer OTHER ==
[2017-11-06 13:54] VITALS: BMI 24.0
--- NOTE | 2017-11-06 13:54 | HP ---
MIRTA SALMERON Rehab Assess/Revision - Admission History Admitted to Rehab from: Medical/Surgical (PT WAS IN [facility] DUE TO CONSTIPATION/BLEEDING.) Date of Admission to Rehab: 11/06/17 - Vital signs Vital Signs: Vital Signs Temperature 96.7 F L 11/06/17 13:52 Pulse Rate 100 H 11/06/17 13:52 Respiratory Rate 18 11/06/17 13:52 Blood Pressure 148/104 11/06/17 13:52 O2 Sat by Pulse Oximetry (%) - Findings Detox History & Physical reviewed: Yes Concur with findings: Yes Comments/Additional Findings: PT RETURNED FROM [facility] TODAY. PT WAS IN REHAB BEFORE TRANSFER TO [facility] ON 10/30/17 FOR MEDICAL REASONS. ALERT O X 3. NAD. PT HAS PRIMARY CARE AT [facility]. BUT D/C PAPER INSTRUCTED PT TO: PT TO FOLLOW UP WITH APPOINTMENTS FOR FOLOOW UP POST HOSPITALIZATION WITH DR. HEREDIA IN 1-2 WEEKS AND FOR KIDNEY FUNCTION/ BIOPSYIN 2-[address] NIX. ADMIT PT BACK TO REHAB.
[2017-11-06] MEDS ORDERED: guaiFENesin/D-METHORPHAN HB 10 ML UNIT-DOSE CUPS PO PRN (14:11)
[2017-11-06] MEDS ORDERED: MAG HYDROX/AL HYDROX/SIMETH 30 ML UNIT-DOSE CUP PO PRN (14:11)
[2017-11-06] MEDS ORDERED: P-EPHED 60MG/TRIPROLIDI 2.5MG TABLET PO PRN (14:11)
[2017-11-06] MEDS ORDERED: MAGNESIUM CITRATE 300 ML BOTTLE PO PRN (14:11)
[2017-11-06] MEDS ORDERED: LOPERAMIDE HCL 2 MG CAPSULE PO PRN (14:11)
[2017-11-06] MEDS ORDERED: MENTHOL/PHENOL 1 EACH UD MM PRN (14:11)
[2017-11-06] MEDS ORDERED: ACETAMINOPHEN 325 MG TABLET (FP) PO PRN (14:11)
[2017-11-06] MEDS ORDERED: MAGNESIUM HYDROX 2400MG/30ML ORAL SUSPENSION 30 ML CUP PO PRN (14:11)
[2017-11-06] MEDS ORDERED: amLODIPine BESYLATE 10 MG TABLET (FP) PO ONE (17:30)
[2017-11-06] MEDS: ATORVASTATIN CA 80 MG TABLET (FP) PO SCH (21:53)
[2017-11-06] MEDS: DOXAZOSIN MESYLATE 2 MG TABLET (FP) PO SCH (21:53)
[2017-11-06] MEDS: RANOLAZINE E.R. 500 MG TABLET (FP) PO SCH (21:53)
[2017-11-06] MEDS: THIAMINE HCL 100 MG TABLET (FP) PO SCH (21:53)
[2017-11-07] MEDS: RANOLAZINE E.R. 500 MG TABLET (FP) PO SCH ×2 (10:02→21:43)
[2017-11-07] MEDS: PRENATAL VITAMINS W/ FOLIC ACID TABLET (FP) PO SCH (10:02)
[2017-11-07] MEDS: amLODIPine BESYLATE 10 MG TABLET (FP) PO SCH (10:02)
[2017-11-07 12:23] LABS: URINE APPEARANCE CLEAR; URINE BILIRUBIN NEGATIVE (NEGATIVE); URINE BLOOD NEGATIVE (NEGATIVE); URINE COLOR LTYELLOW; URINE GLUCOSE (UA) 1+ (NEGATIVE); URINE KETONE NEGATIVE (NEGATIVE); URINE NITRITE NEGATIVE (NEGATIVE); URINE UROBILINOGEN NEGATIVE mg/dL (0.2-1.0)
[2017-11-07 12:36] LABS: URINE LEUK ESTERASE 2+ (NEGATIVE); URINE PROTEIN 2+ (NEGATIVE)
[2017-11-07 12:37] LABS: EPI CELLS FEW /HPF (FEW); URINE CRYSTALS FEW /hpf (NONE SEEN)
[2017-11-07 12:38] LABS: URINE MUCUS RARE
[2017-11-07] MEDS: THIAMINE HCL 100 MG TABLET (FP) PO SCH (21:43)
[2017-11-07] MEDS: ATORVASTATIN CA 80 MG TABLET (FP) PO SCH (21:43)
[2017-11-07] MEDS: DOXAZOSIN MESYLATE 2 MG TABLET (FP) PO SCH (21:43)
[2017-11-08] MEDS: amLODIPine BESYLATE 10 MG TABLET (FP) PO SCH (10:09)
[2017-11-08] MEDS: RANOLAZINE E.R. 500 MG TABLET (FP) PO SCH ×2 (10:09→21:39)
[2017-11-08] MEDS: PRENATAL VITAMINS W/ FOLIC ACID TABLET (FP) PO SCH (10:09)
[2017-11-08] MEDS: DOXAZOSIN MESYLATE 2 MG TABLET (FP) PO SCH (21:39)
[2017-11-08] MEDS: THIAMINE HCL 100 MG TABLET (FP) PO SCH (21:39)
[2017-11-08] MEDS: ATORVASTATIN CA 80 MG TABLET (FP) PO SCH (21:39)
[2017-11-09] MEDS: PRENATAL VITAMINS W/ FOLIC ACID TABLET (FP) PO SCH (10:16)
[2017-11-09] MEDS: amLODIPine BESYLATE 10 MG TABLET (FP) PO SCH (10:16)
[2017-11-09] MEDS: RANOLAZINE E.R. 500 MG TABLET (FP) PO SCH ×2 (10:16→21:54)
--- NOTE | 2017-11-09 12:39 | PN ---
S Progress Note (SOAP) Subjective: liz much imporved returning from [facility], would like to follow up at [facility] for his appt not manpreet, chart needs to be obtained from [facility] records to find out daes of appts. Objective: 11/09/17 12:38 Vital Signs - 8 hr 11/09/17 07:24 Temperature 98.4 F Pulse Rate 104 H Respiratory 18 Rate Blood Pressure 138/96 Laboratory Tests 11/07/17 08:30 Urine Color Ltyellow Urine Appearance Clear Urine pH 6.0 Ur Specific [place] 1.012 Urine Protein 2+ H Urine Glucose (UA) 1+ H Urine Ketones Negative Urine Blood Negative Urine Nitrite Negative Urine Bilirubin Negative Urine Urobilinogen Negative Ur Leukocyte Esterase 2+ H Urine WBC (Auto) 15 Urine RBC (Auto) 1 Ur Epithelial Cells Few Urine Crystals Few Urine Mucus Rare labs reeviewed Assessment: 11/09/17 12:39 obtain medical records with appointment dates adn teims at [facility]. sned urine for c and s, control bp
[2017-11-09] MEDS ORDERED: METOPROLOL SUCCINATE 25 MG TAB.SR.24H (FP) PO SCH (13:15)
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
[2017-11-09] MEDS ORDERED: diphenhydrAMINE HCL 50 MG CAPSULE PO PRN (14:34)
[2017-11-09] MEDS: THIAMINE HCL 100 MG TABLET (FP) PO SCH (21:53)
[2017-11-09] MEDS: ATORVASTATIN CA 80 MG TABLET (FP) PO SCH (21:54)
[2017-11-09] MEDS: DOXAZOSIN MESYLATE 2 MG TABLET (FP) PO SCH (21:54)
[2017-11-10 07:04] VITALS: TEMP 98
[2017-11-10] MEDS ORDERED: cloNIDine HCL 0.1 MG TABLET PO ONE (07:04)
[2017-11-10 07:58] VITALS: BP 151/95; PULSE 90
--- NOTE | 2017-11-10 11:48 | PN ---
[facility] Progress Note Note: Patient was discharged this am because he has a medical appointments:on 11/10/17 at [facility] at 9am and other appointments Nov 13 2017 Cardiology clinic at 9AM and Nov 18 2017 3pm for Renal clinic. Original Note:
== END 2017-11-10 08:20 | disposition home or self-care (01) | DRG 772 ==
LOC: YASAS 13:30 → Y5N 13:55
PROVIDERS: ADMIT Psychiatry & Neurology Psychiatry; ATTEND Psychiatry & Neurology Psychiatry
PROC: HZ42ZZZ Group Counseling for Substance Abuse Treatment, Cognitive-Behavioral (ICD-10-PCS; principal; 2017-11-06)
DX: F11.20 Opioid dependence, uncomplicated (principal); F14.20 Cocaine dependence, uncomplicated; F17.213 Nicotine dependence, cigarettes, with withdrawal; F39 Unspecified mood [affective] disorder; I10 Essential (primary) hypertension; I25.10 Atherosclerotic heart disease of native coronary artery without angina pectoris; I50.32 Chronic diastolic (congestive) heart failure; E78.00 Pure hypercholesterolemia, unspecified; N17.9 Acute kidney failure, unspecified; R76.11 Nonspecific reaction to tuberculin skin test without active tuberculosis
CPT/HCPCS: 81003; 81015; 87086